=== PATIENT | male | born 1940 | race Caucasian/White ===

== ENCOUNTER 2017-10-01 08:02 | Outpatient (CLI) | payer MEDICARE, OTHER ==
[2017-11-27 08:58] LABS: ADD MAN DIFF? NO
[2017-11-27 09:04] LABS: BASOPHIL # 0.1 10^3/ul (0.0-0.1); BASOPHILS % 0.6 % (0.0-2.0); EOSINOPHILS # 0.2 10^3/ul (0.0-0.5); EOSINOPHILS % 2.7 % (0.0-7.0); HEMATOCRIT 37.7 % (42.0-52.0); HEMOGLOBIN 12.6 g/dl (14.0-18.0); LYMPHOCYTES % 21.7 % (15.0-51.0); MEAN CORPUSCULAR HEMOGLOBIN 30.9 pg (29.0-33.0); MEAN CORPUSCULAR HGB CONC 33.4 g/dl (32.0-37.0); MEAN CORPUSCULAR VOLUME 92.4 fl (82.0-101.0); MEAN PLATELET VOLUME 8.5 fl (7.4-10.4); MONOCYTES % 11.4 % (0.0-11.0); NEUTROPHIL # 5.7 10^3/ul (1.6-7.5); NEUTROPHILS % 63.3 % (39.0-77.0); PLATELET COUNT 304 10^3/UL (140-415); RED BLOOD COUNT 4.08 10^6/ul (4.70-6.10); RED CELL DISTRIBUTION WIDTH 13.3 % (11.5-14.5)
[2017-11-27 09:26] LABS: ALANINE AMINOTRANSFERASE 16 IU/L (13-69); ALBUMIN/GLOBULIN RATIO 1.21; ALKALINE PHOSPHATASE 96 IU/L (42-121); ANION GAP 16 (8-16); ASPARTATE AMINO TRANSFERASE 15 IU/L (15-46); BILIRUBIN,INDIRECT 0.4 mg/dl (0-1.1); BILIRUBIN,TOTAL 0.4 mg/dl (0.2-1.3); BLOOD UREA NITROGEN 14 mg/dl (7-20); CALCIUM 9.4 mg/dl (8.4-10.2); CARBON DIOXIDE 28 mmol/L (21-31); CHLORIDE 97 mmol/L (97-110); CHOL/HDL RATIO 3.1 RATIO; CHOLESTEROL 151 mg/dl (100-200); CREATININE 1.37 mg/dl (0.61-1.24); GLUCOSE 128 mg/dl (70-220); HDL CHOLESTEROL 48 mg/dl (31-75); LDL CHOLESTEROL,CALCULATED 83 mg/dl; POTASSIUM 3.7 mmol/L (3.5-5.1); SODIUM 137 mmol/L (135-144); TOTAL PROTEIN 7.3 g/dl (6.1-8.1); TRIGLYCERIDES 102 mg/dl (0-149)
[2017-11-27 10:09] LABS: DIGOXIN 1.4 ng/ml (1.0-2.0)
[2017-11-28 15:16] LABS: CREATININE, RANDOM URINE 70 mg/dL (20-370); MICROALBUMIN 2.2 mg/dL; MICROALBUMIN/CREATININE RATIO 31 (<30)
== END 2017-11-27 | disposition home or self-care (01) ==
LOC: LAB 08:02
DX: I50.9 Heart failure, unspecified (principal)
CPT/HCPCS: 80053; 80061; 80162; 82043; 85025

== ENCOUNTER → 2018-01-15 | Outpatient (CLI) | payer MEDICARE, OTHER ==
[2018-01-15 08:54] LABS: ADD MAN DIFF? NO
[2018-01-15 08:59] LABS: BASOPHIL # 0.1 10^3/ul (0.0-0.1); BASOPHILS % 0.8 % (0.0-2.0); EOSINOPHILS # 0.3 10^3/ul (0.0-0.5); EOSINOPHILS % 3.3 % (0.0-7.0); HEMATOCRIT 37.6 % (42.0-52.0); HEMOGLOBIN 12.8 g/dl (14.0-18.0); LYMPHOCYTES # 1.9 10^3/ul (0.8-2.9); LYMPHOCYTES % 23.3 % (15.0-51.0); MEAN CORPUSCULAR HEMOGLOBIN 31.8 pg (29.0-33.0); MEAN CORPUSCULAR VOLUME 93.5 fl (82.0-101.0); MEAN PLATELET VOLUME 8.6 fl (7.4-10.4); MONOCYTES % 12.1 % (0.0-11.0); NEUTROPHILS % 60.1 % (39.0-77.0); PLATELET COUNT 273 10^3/UL (140-415); RED BLOOD COUNT 4.02 10^6/ul (4.70-6.10); RED CELL DISTRIBUTION WIDTH 13.7 % (11.5-14.5)
[2018-01-15 08:59] LABS: WHITE BLOOD COUNT 8.3 10^3/ul (4.8-10.8)
[2018-01-15 09:09] LABS: ADD UMIC YES; UR ASCORBIC ACID NEGATIVE (NEGATIVE); UR BACTERIA FEW /HPF (NONE SEEN); UR BILIRUBIN (Dip) NEGATIVE (NEGATIVE); UR BLOOD (Dip) 1+ mg/dL (NEGATIVE); UR CLARITY CLEAR (CLEAR); UR COLOR STRAW (YELLOW); UR GLUCOSE (Dip) NEGATIVE (NEGATIVE); UR KETONES (Dip) NEGATIVE (NEGATIVE); UR LEUKOCYTE ESTERASE (Dip) 3+ Leu/ul (NEGATIVE); UR NITRITE (Dip) NEGATIVE (NEGATIVE); UR RBC 2 /HPF (0-5); UR SPECIFIC GRAVITY (Dip) 1.003 (1.003-1.030); UR TOTAL PROTEIN (Dip) NEGATIVE (NEGATIVE); UR UROBILINOGEN (Dip) NEGATIVE (NEGATIVE); UR WBC 25 /HPF (0-5)
[2018-01-15 09:21] LABS: INR 1.41; PROTIME 17.5 Sec (11.9-14.9); PT RATIO 1.4
[2018-01-15 09:22] LABS: PARTIAL THROMBOPLASTIN TIME 42.7 Sec (25.0-35.0)
[2018-01-15 09:35] LABS: ALANINE AMINOTRANSFERASE 18 IU/L (13-69); ALBUMIN 4.2 g/dl (3.3-4.9); ALBUMIN/GLOBULIN RATIO 1.31; ALKALINE PHOSPHATASE 106 IU/L (42-121); ANION GAP 13 (8-16); ASPARTATE AMINO TRANSFERASE 17 IU/L (15-46); BILIRUBIN,INDIRECT 0.5 mg/dl (0-1.1); BILIRUBIN,TOTAL 0.5 mg/dl (0.2-1.3); BLOOD UREA NITROGEN 15 mg/dl (7-20); CALCIUM 9.5 mg/dl (8.4-10.2); CARBON DIOXIDE 27 mmol/L (21-31); CHLORIDE 99 mmol/L (97-110); CHOL/HDL RATIO 2.3 RATIO; CHOLESTEROL 135 mg/dl (100-200); CREATININE 1.49 mg/dl (0.61-1.24); GLUCOSE 105 mg/dl (70-220); HDL CHOLESTEROL 57 mg/dl (31-75); LDL CHOLESTEROL,CALCULATED 63 mg/dl; POTASSIUM 3.9 mmol/L (3.5-5.1); SODIUM 135 mmol/L (135-144); TOTAL PROTEIN 7.4 g/dl (6.1-8.1); TRIGLYCERIDES 76 mg/dl (0-149)
== END | disposition home or self-care (01) ==
LOC: LAB 08:06
DX: Z01.818 Encounter for other preprocedural examination (principal); I25.10 Atherosclerotic heart disease of native coronary artery without angina pectoris; H26.9 Unspecified cataract; J44.9 Chronic obstructive pulmonary disease, unspecified
CPT/HCPCS: 71046; 80053; 80061; 81001; 85025; 85610; 85730; 93005

== ENCOUNTER 2018-07-03 12:01 | Inpatient (IN) | payer BC, OTHER, MEDICARE ==
[2018-07-03 12:38] LABS: ADD MAN DIFF? NO
[2018-07-03] MEDS: IPRATROPIUM (NEB) 0.5 MG/2.5 ML AMP INH (12:43)
[2018-07-03] MEDS: ALBUTEROL 0.5% (NEB) 2.5 MG/0.5 ML AMP INH (12:43)
[2018-07-03] MEDS: METHYLPREDNISOLONE 125 MG INJ IV ×3 (12:52→21:17)
[2018-07-03] MEDS: MAGNESIUM SULFATE 2 GM/50 ML 50 ML IVPB (12:53)
[2018-07-03 12:56] LABS: AADO2 Arterial 150.4 mmHg (7.0-24.0); Allen Test ACCEPTAB; Arterial Base Excess -3.6 mmol/L (-3.0-3); Arterial Blood Gas Oxygen Sat 97.6 mmHG (95.0-100.0); Arterial COHb 1.2 % (0.0-3.0); Arterial Fraction of Oxyhgb 96.2 % (93.0-99.0); Arterial HCO3 19.8 mmol/L (22.0-26.0); Arterial MetHb 0.2 % (0.0-1.5); Arterial pCO2 31.3 mmhg (35-45); Blood Gas IEPAP 15/5; Blood Gas PS 10; MODE MASK - BIPAP; Site Right Radial
[2018-07-03 12:58] LABS: BASOPHIL # 0.1 10^3/ul (0.0-0.1); BASOPHILS % 0.4 % (0.0-2.0); EOSINOPHILS # 0.1 10^3/ul (0.0-0.5); EOSINOPHILS % 0.4 % (0.0-7.0); HEMATOCRIT 37.8 % (42.0-52.0); HEMOGLOBIN 13.1 g/dl (14.0-18.0); LYMPHOCYTES # 1.1 10^3/ul (0.8-2.9); LYMPHOCYTES % 9.9 % (15.0-51.0); MEAN CORPUSCULAR HGB CONC 34.7 g/dl (32.0-37.0); MEAN CORPUSCULAR VOLUME 92.2 fl (82.0-101.0); MONOCYTES % 8.8 % (0.0-11.0); NEUTROPHIL # 9.3 10^3/ul (1.6-7.5); NEUTROPHILS % 80.2 % (39.0-77.0); PLATELET COUNT 307 10^3/UL (140-415); RED CELL DISTRIBUTION WIDTH 13.3 % (11.5-14.5)
[2018-07-03 12:58] LABS: WHITE BLOOD COUNT 11.5 10^3/ul (4.8-10.8)
[2018-07-03 13:00] LABS: ALBUMIN 4.9 g/dl (3.3-4.9); ALBUMIN/GLOBULIN RATIO 1.63; ALKALINE PHOSPHATASE 139 IU/L (42-121); ANION GAP 16 (5-13); ASPARTATE AMINO TRANSFERASE 27 IU/L (15-46); BILIRUBIN,INDIRECT 0.8 mg/dl (0-1.1); BILIRUBIN,TOTAL 0.8 mg/dl (0.2-1.3); BLOOD UREA NITROGEN 15 mg/dl (7-20); CALCIUM 9.8 mg/dl (8.4-10.2); CARBON DIOXIDE 21 mmol/L (21-31); CHLORIDE 95 mmol/L (97-110); GLUCOSE 113 mg/dl (70-220); LIPASE 24 U/L (23-300); POTASSIUM 4.8 mmol/L (3.5-5.1); SODIUM 132 mmol/L (135-144); TOTAL PROTEIN 7.9 g/dl (6.1-8.1)
[2018-07-03] MEDS ORDERED: ASPIRIN 81 MG TAB PO (13:00)
[2018-07-03 13:02] LABS: ALANINE AMINOTRANSFERASE < 6 IU/L (13-69)
[2018-07-03 13:09] LABS: B-TYPE NATRIURETIC PEPTIDE 9320 PG/ML (0-450)
[2018-07-03] MEDS: ENALAPRILAT 1.25 MG INJ IV ×2 (13:09→13:57)
[2018-07-03] MEDS: NITROGLYCERIN (SL) 0.4 MG TAB SL (13:10)
[2018-07-03 13:11] LABS: TROPONIN-I < 0.012 ng/ml (0.000-0.120)
[2018-07-03 13:16] LABS: PARTIAL THROMBOPLASTIN TIME 37.9 Sec (23.0-35.0)
[2018-07-03 13:36] LABS: INR 1.25; PROTIME 15.9 Sec (11.9-14.9); PT RATIO 1.2
[2018-07-03] MEDS: ASPIRIN 81 MG TAB PO (14:00)
[2018-07-03] MEDS: FUROSEMIDE 40 MG INJ IV ×2 (14:01→18:50)
[2018-07-03] MEDS ORDERED: ALBUTEROL/IPRATROPIUM (NEB) 3 ML AMP HHN (16:30)
[2018-07-03] MEDS ORDERED: NACL 0.9% 3 ML SYG IV (16:30)
[2018-07-03] MEDS ORDERED: ACETAMINOPHEN 325 MG TAB PO (16:30)
[2018-07-03] MEDS ORDERED: ONDANSETRON 4 MG INJ IV (16:30)
[2018-07-03] MEDS: LEVALBUTEROL (NEB) 1.25 MG/0.5 ML AMP HHN ×3 (16:49→19:55)
[2018-07-03 17:32] LABS: CREATINE KINASE 37 IU/L (23-200)
[2018-07-03 17:46] LABS: CK INDEX 5.9; CK-MB 2.19 ng/ml (0.0-2.4); TROPONIN-I < 0.012 ng/ml (0.000-0.120)
[2018-07-03] MEDS: DILTIAZEM 60 MG TAB PO (18:53)
[2018-07-03] MEDS: CEFEPIME 1GM/50 ML (PMX) 50 ML IVPB (21:17)
[2018-07-03 22:38] LABS: CREATINE KINASE 30 IU/L (23-200)
[2018-07-03 22:51] LABS: CK INDEX 6.2; CK-MB 1.86 ng/ml (0.0-2.4); TROPONIN-I < 0.012 ng/ml (0.000-0.120)
[2018-07-04] MEDS: DILTIAZEM 60 MG TAB PO ×4 (00:25→21:44)
[2018-07-04] MEDS: LEVALBUTEROL (NEB) 1.25 MG/0.5 ML AMP HHN ×6 (00:45→20:02)
[2018-07-04] MEDS: PANTOPRAZOLE 40 MG INJ IV (05:09)
[2018-07-04] MEDS: FUROSEMIDE 40 MG INJ IV ×2 (05:10→17:22)
[2018-07-04] MEDS: METHYLPREDNISOLONE 125 MG INJ IV ×3 (05:16→21:41)
[2018-07-04] MEDS: CEFEPIME 1GM/50 ML (PMX) 50 ML IVPB ×2 (08:04→21:41)
[2018-07-04 08:42] LABS: ADD MAN DIFF? NO
[2018-07-04 08:48] LABS: WHITE BLOOD COUNT 10.3 10^3/ul (4.8-10.8)
[2018-07-04 08:48] LABS: BASOPHILS % 0.1 % (0.0-2.0); HEMATOCRIT 34.6 % (42.0-52.0); HEMOGLOBIN 11.8 g/dl (14.0-18.0); LYMPHOCYTES # 0.7 10^3/ul (0.8-2.9); LYMPHOCYTES % 6.3 % (15.0-51.0); MEAN CORPUSCULAR HGB CONC 34.1 g/dl (32.0-37.0); MEAN CORPUSCULAR VOLUME 90.8 fl (82.0-101.0); MEAN PLATELET VOLUME 9.1 fl (7.4-10.4); MONOCYTE # 0.3 10^3/ul (0.3-0.9); NEUTROPHIL # 9.3 10^3/ul (1.6-7.5); NEUTROPHILS % 90.2 % (39.0-77.0); PLATELET COUNT 295 10^3/UL (140-415); RED BLOOD COUNT 3.81 10^6/ul (4.70-6.10); RED CELL DISTRIBUTION WIDTH 13.3 % (11.5-14.5)
[2018-07-04 09:14] LABS: ANION GAP 13 (5-13); BLOOD UREA NITROGEN 27 mg/dl (7-20); CALCIUM 9.2 mg/dl (8.4-10.2); CARBON DIOXIDE 23 mmol/L (21-31); CHLORIDE 99 mmol/L (97-110); CREATININE 1.39 mg/dl (0.61-1.24); GLUCOSE 187 mg/dl (70-220); POTASSIUM 3.4 mmol/L (3.5-5.1); SODIUM 135 mmol/L (135-144)
[2018-07-04 09:20] LABS: PHOSPHORUS 3.3 mg/dl (2.5-4.9)
[2018-07-04 09:22] LABS: FREE THYROXINE INDEX (Calc) 3.15 ug/ml (0.65-3.89); T4 (THYROXINE) 7.5 ug/dl (5.5-11.0)
[2018-07-04 10:32] LABS: ADD UMIC YES; UR ASCORBIC ACID NEGATIVE (NEGATIVE); UR BACTERIA FEW /HPF (NONE SEEN); UR BILIRUBIN (Dip) NEGATIVE (NEGATIVE); UR BLOOD (Dip) 2+ mg/dL (NEGATIVE); UR CLARITY SLIGHTLY CLOUDY (CLEAR); UR COLOR YELLOW (YELLOW); UR GLUCOSE (Dip) NEGATIVE (NEGATIVE); UR KETONES (Dip) NEGATIVE (NEGATIVE); UR LEUKOCYTE ESTERASE (Dip) 2+ Leu/ul (NEGATIVE); UR NITRITE (Dip) NEGATIVE (NEGATIVE); UR RBC 2 /HPF (0-5); UR SPECIFIC GRAVITY (Dip) 1.005 (1.003-1.030); UR TOTAL PROTEIN (Dip) NEGATIVE (NEGATIVE); UR UROBILINOGEN (Dip) NEGATIVE (NEGATIVE); UR WBC 12 /HPF (0-5)
[2018-07-04] MEDS: ATENOLOL 25 MG TAB PO ×2 (12:30→20:51)
[2018-07-04 13:23] LABS: FLD RBC 5000 /uL; FLD WBC 376 /cmm
[2018-07-04 13:36] LABS: FLD TYPE PLEURAL
[2018-07-04 13:36] LABS: FLD CLARITY SLIGHTLY CLOUDY; FLD COLOR YELLOW
[2018-07-04 13:59] LABS: FLD MN% 79.8 %; FLD PMN% 20.2 %
[2018-07-04 14:40] LABS: FLUID LD 278 U/L
[2018-07-04 14:41] LABS: FLUID TOTAL PROTEIN 2.4 g/dl; FLUID TYPE PLEURAL FLUID
[2018-07-04] MEDS: POTASSIUM CHLORIDE 100 ML IVPB ×2 (20:50→21:41)
[2018-07-05] MEDS: LEVALBUTEROL (NEB) 1.25 MG/0.5 ML AMP HHN ×6 (01:37→20:27)
[2018-07-05] MEDS: PANTOPRAZOLE 40 MG INJ IV (06:01)
[2018-07-05] MEDS: METHYLPREDNISOLONE 125 MG INJ IV ×3 (06:02→21:09)
[2018-07-05] MEDS: DILTIAZEM 60 MG TAB PO ×3 (06:02→21:09)
[2018-07-05 06:48] LABS: ADD MAN DIFF? NO
[2018-07-05 06:53] LABS: WHITE BLOOD COUNT 20.1 10^3/ul (4.8-10.8)
[2018-07-05 06:53] LABS: HEMATOCRIT 34.2 % (42.0-52.0); HEMOGLOBIN 11.6 g/dl (14.0-18.0); LYMPHOCYTES # 0.8 10^3/ul (0.8-2.9); LYMPHOCYTES % 4.1 % (15.0-51.0); MEAN CORPUSCULAR HEMOGLOBIN 31.8 pg (29.0-33.0); MEAN CORPUSCULAR HGB CONC 33.9 g/dl (32.0-37.0); MEAN CORPUSCULAR VOLUME 93.7 fl (82.0-101.0); MEAN PLATELET VOLUME 9.1 fl (7.4-10.4); MONOCYTE # 0.7 10^3/ul (0.3-0.9); MONOCYTES % 3.6 % (0.0-11.0); NEUTROPHIL # 18.4 10^3/ul (1.6-7.5); NEUTROPHILS % 91.6 % (39.0-77.0); PLATELET COUNT 290 10^3/UL (140-415); RED BLOOD COUNT 3.65 10^6/ul (4.70-6.10); RED CELL DISTRIBUTION WIDTH 13.9 % (11.5-14.5)
[2018-07-05 07:46] LABS: ANION GAP 13 (5-13); BLOOD UREA NITROGEN 33 mg/dl (7-20); CALCIUM 8.9 mg/dl (8.4-10.2); CARBON DIOXIDE 24 mmol/L (21-31); CHLORIDE 100 mmol/L (97-110); CREATININE 1.61 mg/dl (0.61-1.24); GLUCOSE 161 mg/dl (70-220); PHOSPHORUS 3.9 mg/dl (2.5-4.9); POTASSIUM 3.7 mmol/L (3.5-5.1); SODIUM 137 mmol/L (135-144)
[2018-07-05] MEDS: FUROSEMIDE 40 MG INJ IV (08:22)
[2018-07-05] MEDS: CEFEPIME 1GM/50 ML (PMX) 50 ML IVPB ×2 (08:22→21:09)
[2018-07-05] MEDS: ATENOLOL 25 MG TAB PO ×2 (08:25→21:08)
[2018-07-05] MEDS: INFLUENZA VIRUS VACCINE 0.5 ML (DISPENSING) IM* (08:26)
[2018-07-05 10:07] LABS: AADO2 Arterial 99.3 mmHg (7.0-24.0); Allen Test ACCEPTAB; Arterial Base Excess -1.9 mmol/L (-3.0-3); Arterial Blood Gas Oxygen Sat 95.4 mmHG (95.0-100.0); Arterial COHb 0.7 % (0.0-3.0); Arterial Fraction of Oxyhgb 94.4 % (93.0-99.0); Arterial HCO3 21.4 mmol/L (22.0-26.0); Arterial MetHb 0.3 % (0.0-1.5); Arterial pCO2 31.9 mmhg (35-45); MODE NASAL CANNULA; Site Right Radial
[2018-07-05] MEDS: GUAIFENESIN/DM 5ML CUP PO (13:16)
[2018-07-05] MEDS: DOCUSATE SODIUM 100 MG CAP PO (21:25)
[2018-07-06] MEDS: LEVALBUTEROL (NEB) 1.25 MG/0.5 ML AMP HHN ×6 (02:40→20:22)
[2018-07-06] MEDS: GUAIFENESIN/DM 5ML CUP PO ×2 (02:48→18:11)
[2018-07-06] MEDS: DILTIAZEM 60 MG TAB PO ×3 (06:00→22:11)
[2018-07-06] MEDS: METHYLPREDNISOLONE 125 MG INJ IV ×4 (06:15→20:06)
[2018-07-06] MEDS: PANTOPRAZOLE 40 MG INJ IV (06:15)
[2018-07-06 07:11] LABS: ADD MAN DIFF? NO; BASOPHILS % 0.1 % (0.0-2.0); HEMATOCRIT 35.7 % (42.0-52.0); HEMOGLOBIN 11.8 g/dl (14.0-18.0); LYMPHOCYTES # 0.7 10^3/ul (0.8-2.9); LYMPHOCYTES % 3.6 % (15.0-51.0); MEAN CORPUSCULAR HEMOGLOBIN 31.5 pg (29.0-33.0); MEAN CORPUSCULAR HGB CONC 33.1 g/dl (32.0-37.0); MEAN CORPUSCULAR VOLUME 95.2 fl (82.0-101.0); MEAN PLATELET VOLUME 9.1 fl (7.4-10.4); MONOCYTE # 0.9 10^3/ul (0.3-0.9); MONOCYTES % 4.8 % (0.0-11.0); NEUTROPHIL # 17.1 10^3/ul (1.6-7.5); NEUTROPHILS % 90.7 % (39.0-77.0); PLATELET COUNT 286 10^3/UL (140-415); RED BLOOD COUNT 3.75 10^6/ul (4.70-6.10); RED CELL DISTRIBUTION WIDTH 14.2 % (11.5-14.5)
[2018-07-06 07:11] LABS: WHITE BLOOD COUNT 18.9 10^3/ul (4.8-10.8)
[2018-07-06 07:46] LABS: PHOSPHORUS 4.5 mg/dl (2.5-4.9)
[2018-07-06 07:46] LABS: MAGNESIUM 2.2 mg/dl (1.7-2.5)
[2018-07-06 07:52] LABS: ANION GAP 13 (5-13); BLOOD UREA NITROGEN 45 mg/dl (7-20); CALCIUM 9.1 mg/dl (8.4-10.2); CARBON DIOXIDE 24 mmol/L (21-31); CHLORIDE 102 mmol/L (97-110); CREATININE 1.75 mg/dl (0.61-1.24); GLUCOSE 146 mg/dl (70-220); POTASSIUM 4.4 mmol/L (3.5-5.1); SODIUM 139 mmol/L (135-144)
[2018-07-06] MEDS: ATENOLOL 25 MG TAB PO ×2 (08:49→20:07)
[2018-07-06] MEDS: CEFEPIME 1GM/50 ML (PMX) 50 ML IVPB ×2 (08:50→20:06)
[2018-07-06] MEDS: DOCUSATE SODIUM 100 MG CAP PO ×2 (18:03→20:07)
[2018-07-06] MEDS: NIFEdipine (XL) 30 MG TAB PO (20:07)
[2018-07-06] MEDS: FUROSEMIDE 40 MG INJ IV (22:32)
[2018-07-06 23:49] LABS: AADO2 Arterial 533.5 mmHg (7.0-24.0); Allen Test ACCEPTAB; Arterial Base Excess -5.4 mmol/L (-3.0-3); Arterial Blood Gas Oxygen Sat 98.2 mmHG (95.0-100.0); Arterial COHb 0.3 % (0.0-3.0); Arterial Fraction of Oxyhgb 97.6 % (93.0-99.0); Arterial HCO3 21.1 mmol/L (22.0-26.0); Arterial MetHb 0.3 % (0.0-1.5); MODE MASK - NRB; Site Right Radial
[2018-07-06] MEDS ORDERED: LORAZEPAM 2 MG INJ (23:59)
[2018-07-07] MEDS: LORAZEPAM 2 MG INJ IV (00:13)
[2018-07-07] MEDS ORDERED: PROPOFOL 100 ML (00:23)
[2018-07-07] MEDS: PROPOFOL 100 ML IV ×4 (00:46→18:13)
[2018-07-07] MEDS: LEVALBUTEROL (NEB) 1.25 MG/0.5 ML AMP HHN ×3 (01:07→09:00)
[2018-07-07 01:58] LABS: AADO2 Arterial 247.7 mmHg (7.0-24.0); Arterial Base Excess -3.7 mmol/L (-3.0-3); Arterial Blood Gas Oxygen Sat 99.7 mmHG (95.0-100.0); Arterial COHb 0.3 % (0.0-3.0); Arterial Fraction of Oxyhgb 99.1 % (93.0-99.0); Arterial HCO3 21.1 mmol/L (22.0-26.0); Arterial MetHb 0.3 % (0.0-1.5); Arterial pCO2 37.3 mmhg (35-45); MODE VENT - AC; Site Right Radial
[2018-07-07 05:36] LABS: ANION GAP 9 (5-13); BLOOD UREA NITROGEN 53 mg/dl (7-20); CALCIUM 8.9 mg/dl (8.4-10.2); CARBON DIOXIDE 25 mmol/L (21-31); CHLORIDE 104 mmol/L (97-110); CREATININE 1.83 mg/dl (0.61-1.24); GLUCOSE 205 mg/dl (70-220); POTASSIUM 4.4 mmol/L (3.5-5.1); SODIUM 138 mmol/L (135-144)
[2018-07-07] MEDS: PANTOPRAZOLE 40 MG INJ IV (05:45)
[2018-07-07] MEDS: DILTIAZEM 60 MG TAB PO ×3 (06:00→22:01)
[2018-07-07] MEDS ORDERED: SUCCINYLCHOLINE CHLORIDE 100 MG/5 ML SYG IV (07:00)
[2018-07-07] MEDS ORDERED: ETOMIDATE 20 MG INJ (07:00)
[2018-07-07 08:52] LABS: AADO2 Arterial 102.6 mmHg (7.0-24.0); Allen Test ACCEPTAB; Arterial Base Excess 0.5 mmol/L (-3.0-3); Arterial Blood Gas Oxygen Sat 98.6 mmHG (95.0-100.0); Arterial COHb 0.3 % (0.0-3.0); Arterial Fraction of Oxyhgb 98.1 % (93.0-99.0); Arterial HCO3 24.7 mmol/L (22.0-26.0); Arterial MetHb 0.2 % (0.0-1.5); Arterial pCO2 38.2 mmhg (35-45); MODE VENT - AC; Site Right Radial
[2018-07-07] MEDS: METHYLPREDNISOLONE 125 MG INJ IV ×2 (08:57→20:49)
[2018-07-07] MEDS: CEFEPIME 1GM/50 ML (PMX) 50 ML IVPB ×2 (08:57→20:18)
[2018-07-07] MEDS: NIFEdipine (XL) 30 MG TAB PO (08:58)
[2018-07-07] MEDS: ATENOLOL 25 MG TAB PO ×2 (08:59→20:18)
[2018-07-07] MEDS ORDERED: DEXTROSE 50% 50 ML SYRINGE IV ×2 (11:00)
[2018-07-07] MEDS ORDERED: GLUCOSE GEL 15 GRAM TUBE PO ×2 (11:00)
[2018-07-07] MEDS ORDERED: GLUCAGON 1 MG INJ IM (11:00)
[2018-07-07] MEDS ORDERED: GLUCOSE GEL 15 GRAM TUBE BUCCAL (11:00)
[2018-07-07] MEDS ORDERED: INSULIN ASPART [NOVOLOG] 3 ML PEN SC (11:30)
[2018-07-07] MEDS: INSULIN ASPART [NOVOLOG] 3 ML PEN SC ×3 (12:48→20:51)
[2018-07-07] MEDS: LEVALBUTEROL (HFA) 15 GM INHALER INH ×2 (13:33→20:25)
[2018-07-08] MEDS: PROPOFOL 100 ML IV ×2 (00:35→06:01)
[2018-07-08] MEDS: INSULIN ASPART [NOVOLOG] 3 ML PEN SC ×6 (01:28→21:05)
[2018-07-08] MEDS ORDERED: ACCU-CHEK XX ×2 (02:00)
[2018-07-08] MEDS: LEVALBUTEROL (HFA) 15 GM INHALER INH ×2 (02:14→09:22)
[2018-07-08 05:54] LABS: ABNORMAL IP MESSAGE 1; ADD MAN DIFF? NO; HEMATOCRIT 33.8 % (42.0-52.0); HEMOGLOBIN 11.5 g/dl (14.0-18.0); LYMPHOCYTES # 0.5 10^3/ul (0.8-2.9); LYMPHOCYTES % 4.4 % (15.0-51.0); MEAN CORPUSCULAR VOLUME 94.2 fl (82.0-101.0); MEAN PLATELET VOLUME 9.2 fl (7.4-10.4); MONOCYTE # 0.9 10^3/ul (0.3-0.9); MONOCYTES % 8.2 % (0.0-11.0); NEUTROPHIL # 9.2 10^3/ul (1.6-7.5); NEUTROPHILS % 86.5 % (39.0-77.0); PLATELET COUNT 253 10^3/UL (140-415); POSITIVE DIFF @See below; RED BLOOD COUNT 3.59 10^6/ul (4.70-6.10); RED CELL DISTRIBUTION WIDTH 14.2 % (11.5-14.5)
[2018-07-08 05:54] LABS: WHITE BLOOD COUNT 10.7 10^3/ul (4.8-10.8)
[2018-07-08] MEDS: PANTOPRAZOLE 40 MG INJ IV (05:57)
[2018-07-08] MEDS: DILTIAZEM 60 MG TAB PO ×3 (05:58→21:03)
[2018-07-08 06:42] LABS: ANION GAP 10 (5-13); BLOOD UREA NITROGEN 63 mg/dl (7-20); CALCIUM 8.7 mg/dl (8.4-10.2); CARBON DIOXIDE 24 mmol/L (21-31); CHLORIDE 107 mmol/L (97-110); GLUCOSE 171 mg/dl (70-220); MAGNESIUM 2.6 mg/dl (1.7-2.5); PHOSPHORUS 4.1 mg/dl (2.5-4.9); POTASSIUM 4.2 mmol/L (3.5-5.1); SODIUM 141 mmol/L (135-144)
[2018-07-08 07:31] LABS: AADO2 Arterial 58.1 mmHg (7.0-24.0); Allen Test ACCEPTAB; Arterial Base Excess 0 mmol/L (-3.0-3); Arterial Blood Gas Oxygen Sat 98.1 mmHG (95.0-100.0); Arterial COHb 0.3 % (0.0-3.0); Arterial Fraction of Oxyhgb 97.6 % (93.0-99.0); Arterial HCO3 23.3 mmol/L (22.0-26.0); Arterial MetHb 0.2 % (0.0-1.5); Arterial pCO2 33.6 mmhg (35-45); MODE VENT - AC; Site Right Radial
[2018-07-08] MEDS: APIXABAN 5 MG TABLET PO ×2 (09:26→21:04)
[2018-07-08] MEDS: ATENOLOL 25 MG TAB PO ×2 (09:27→21:03)
[2018-07-08] MEDS: METHYLPREDNISOLONE 125 MG INJ IV ×2 (09:27→21:04)
[2018-07-08] MEDS: CEFEPIME 1GM/50 ML (PMX) 50 ML IVPB (09:28)
[2018-07-08 11:18] LABS: AADO2 Arterial 63.4 mmHg (7.0-24.0); Allen Test ACCEPTAB; Arterial Base Excess -0.4 mmol/L (-3.0-3); Arterial COHb 0.3 % (0.0-3.0); Arterial Fraction of Oxyhgb 97.6 % (93.0-99.0); Arterial HCO3 22.8 mmol/L (22.0-26.0); Arterial MetHb 0.1 % (0.0-1.5); Arterial pCO2 32.8 mmhg (35-45); Blood Gas PS 10; MODE VENT - CPAP; Site Right Radial
[2018-07-08] MEDS: SOD CHLORIDE 0.45% 1,000 ML IV (12:24)
[2018-07-09] MEDS ORDERED: LORAZEPAM 2 MG INJ IV (01:00)
[2018-07-09] MEDS: OXYCODONE/ACETAMINOPHEN (5/325) TAB PO ×2 (01:31→09:09)
[2018-07-09] MEDS: INSULIN ASPART [NOVOLOG] 3 ML PEN SC ×6 (01:38→21:14)
[2018-07-09 03:39] LABS: ADD UMIC YES; UR ASCORBIC ACID 20 mg/dL (NEGATIVE); UR BACTERIA FEW /HPF (NONE SEEN); UR BILIRUBIN (Dip) NEGATIVE (NEGATIVE); UR BLOOD (Dip) 2+ mg/dL (NEGATIVE); UR CLARITY CLEAR (CLEAR); UR COLOR YELLOW (YELLOW); UR GLUCOSE (Dip) NEGATIVE (NEGATIVE); UR KETONES (Dip) NEGATIVE (NEGATIVE); UR LEUKOCYTE ESTERASE (Dip) TRACE Leu/ul (NEGATIVE); UR NITRITE (Dip) NEGATIVE (NEGATIVE); UR RBC 44 /HPF (0-5); UR SPECIFIC GRAVITY (Dip) 1.017 (1.003-1.030); UR TOTAL PROTEIN (Dip) 1+ mg/dl (NEGATIVE); UR UROBILINOGEN (Dip) NEGATIVE (NEGATIVE); UR WBC 7 /HPF (0-5)
[2018-07-09 03:40] LABS: SODIUM,URINE RANDOM 14 mmol/L (30-90)
[2018-07-09 05:02] LABS: ADD MAN DIFF? NO
[2018-07-09 05:03] LABS: WHITE BLOOD COUNT 11.8 10^3/ul (4.8-10.8)
[2018-07-09 05:03] LABS: ABNORMAL IP MESSAGE 1; HEMOGLOBIN 11.6 g/dl (14.0-18.0); LYMPHOCYTES # 0.5 10^3/ul (0.8-2.9); MEAN CORPUSCULAR HEMOGLOBIN 31.4 pg (29.0-33.0); MEAN CORPUSCULAR HGB CONC 33.1 g/dl (32.0-37.0); MEAN CORPUSCULAR VOLUME 94.9 fl (82.0-101.0); MEAN PLATELET VOLUME 9.3 fl (7.4-10.4); MONOCYTE # 0.8 10^3/ul (0.3-0.9); MONOCYTES % 6.4 % (0.0-11.0); NEUTROPHIL # 10.5 10^3/ul (1.6-7.5); NEUTROPHILS % 88.8 % (39.0-77.0); PLATELET COUNT 240 10^3/UL (140-415); POSITIVE DIFF @See below; RED BLOOD COUNT 3.69 10^6/ul (4.70-6.10)
[2018-07-09 05:29] LABS: ANION GAP 8 (5-13); BLOOD UREA NITROGEN 66 mg/dl (7-20); CALCIUM 8.6 mg/dl (8.4-10.2); CARBON DIOXIDE 24 mmol/L (21-31); CHLORIDE 109 mmol/L (97-110); CREATININE 1.51 mg/dl (0.61-1.24); GLUCOSE 173 mg/dl (70-220); MAGNESIUM 2.6 mg/dl (1.7-2.5); PHOSPHORUS 3.4 mg/dl (2.5-4.9); POTASSIUM 4.3 mmol/L (3.5-5.1); SODIUM 141 mmol/L (135-144)
[2018-07-09] MEDS: LANSOPRAZOLE 30 MG CAP GTB (05:31)
[2018-07-09] MEDS: DILTIAZEM 60 MG TAB PO ×3 (05:31→21:17)
[2018-07-09] MEDS: SOD CHLORIDE 0.45% 1,000 ML IV (07:05)
[2018-07-09 08:25] LABS: Allen Test ACCEPTAB; Arterial Base Excess -0.7 mmol/L (-3.0-3); Arterial Blood Gas Oxygen Sat 98.3 mmHG (95.0-100.0); Arterial COHb 0.5 % (0.0-3.0); Arterial Fraction of Oxyhgb 97.7 % (93.0-99.0); Arterial HCO3 22.5 mmol/L (22.0-26.0); Arterial MetHb 0.1 % (0.0-1.5); Arterial pCO2 32.6 mmhg (35-45); MODE NASAL CANNULA; Site Right Radial
[2018-07-09] MEDS ORDERED: E IVPB (09:00)
[2018-07-09] MEDS: METHYLPREDNISOLONE 125 MG INJ IV (09:07)
[2018-07-09] MEDS: ATENOLOL 25 MG TAB PO ×2 (09:08→21:16)
[2018-07-09] MEDS: APIXABAN 5 MG TABLET PO ×2 (09:08→21:16)
[2018-07-09] MEDS: CEFEPIME 1GM/50 ML (PMX) 50 ML IVPB (09:09)
[2018-07-09] MEDS ORDERED: LORAZEPAM 0.5 MG TAB GTB (11:00)
[2018-07-10] MEDS: INSULIN ASPART [NOVOLOG] 3 ML PEN SC ×6 (01:00→20:47)
[2018-07-10 05:30] LABS: ADD MAN DIFF? NO
[2018-07-10 05:47] LABS: BASOPHILS % 0.1 % (0.0-2.0); EOSINOPHILS % 0.1 % (0.0-7.0); HEMATOCRIT 37.7 % (42.0-52.0); HEMOGLOBIN 12.5 g/dl (14.0-18.0); LYMPHOCYTES # 0.9 10^3/ul (0.8-2.9); LYMPHOCYTES % 5.4 % (15.0-51.0); MEAN CORPUSCULAR HEMOGLOBIN 31.5 pg (29.0-33.0); MEAN CORPUSCULAR HGB CONC 33.2 g/dl (32.0-37.0); MEAN PLATELET VOLUME 9.6 fl (7.4-10.4); MONOCYTE # 1.5 10^3/ul (0.3-0.9); MONOCYTES % 9.2 % (0.0-11.0); NEUTROPHIL # 13.5 10^3/ul (1.6-7.5); NEUTROPHILS % 84.3 % (39.0-77.0); PLATELET COUNT 240 10^3/UL (140-415); RED BLOOD COUNT 3.97 10^6/ul (4.70-6.10); RED CELL DISTRIBUTION WIDTH 13.4 % (11.5-14.5)
[2018-07-10] MEDS: LANSOPRAZOLE 30 MG CAP GTB (06:15)
[2018-07-10] MEDS: OXYCODONE/ACETAMINOPHEN (5/325) TAB PO (06:15)
[2018-07-10] MEDS: DILTIAZEM 60 MG TAB PO ×3 (06:16→20:48)
[2018-07-10 06:22] LABS: ANION GAP 8 (5-13); BLOOD UREA NITROGEN 65 mg/dl (7-20); CALCIUM 8.7 mg/dl (8.4-10.2); CARBON DIOXIDE 24 mmol/L (21-31); CHLORIDE 106 mmol/L (97-110); GLUCOSE 143 mg/dl (70-220); MAGNESIUM 2.5 mg/dl (1.7-2.5); PHOSPHORUS 3.2 mg/dl (2.5-4.9); POTASSIUM 4.5 mmol/L (3.5-5.1); SODIUM 138 mmol/L (135-144)
[2018-07-10] MEDS ORDERED: VANCOMYCIN IV PER PHARMACY XX (08:00)
[2018-07-10] MEDS: CEFEPIME 1GM/50 ML (PMX) 50 ML IVPB (08:10)
[2018-07-10] MEDS: METHYLPREDNISOLONE 125 MG INJ IV (08:10)
[2018-07-10] MEDS: APIXABAN 5 MG TABLET PO ×2 (08:10→20:49)
[2018-07-10] MEDS: ATENOLOL 25 MG TAB PO ×2 (08:10→20:48)
[2018-07-10] MEDS ORDERED: VANCOMYCIN 1.75 GM in SOD CHLORIDE 0.9% 500 ML IVPB (10:00)
[2018-07-10] MEDS: hydrALAzine 20 MG INJ IV (10:43)
[2018-07-10] MEDS: VANCOMYCIN 1.5 GM in SOD CHLORIDE 0.9% 250 ML IVPB (12:33)
[2018-07-10] MEDS: LEVALBUTEROL (NEB) 1.25 MG/0.5 ML AMP HHN (14:17)
[2018-07-10] MEDS: LACTULOSE 30ML CUP PO (14:33)
[2018-07-11] MEDS: INSULIN ASPART [NOVOLOG] 3 ML PEN SC ×5 (01:00→20:12)
[2018-07-11] MEDS: DILTIAZEM 60 MG TAB PO ×3 (05:34→22:23)
[2018-07-11] MEDS: LANSOPRAZOLE 30 MG CAP GTB (05:34)
[2018-07-11 08:10] LABS: ADD MAN DIFF? NO
[2018-07-11 08:13] LABS: WHITE BLOOD COUNT 21.3 10^3/ul (4.8-10.8)
[2018-07-11 08:13] LABS: ABNORMAL IP MESSAGE 1; BASOPHILS % 0.1 % (0.0-2.0); EOSINOPHILS # 0.1 10^3/ul (0.0-0.5); EOSINOPHILS % 0.5 % (0.0-7.0); HEMATOCRIT 40.4 % (42.0-52.0); HEMOGLOBIN 13.2 g/dl (14.0-18.0); LYMPHOCYTES # 1.6 10^3/ul (0.8-2.9); LYMPHOCYTES % 7.4 % (15.0-51.0); MEAN CORPUSCULAR HEMOGLOBIN 31.5 pg (29.0-33.0); MEAN CORPUSCULAR HGB CONC 32.7 g/dl (32.0-37.0); MEAN CORPUSCULAR VOLUME 96.4 fl (82.0-101.0); MONOCYTE # 2.5 10^3/ul (0.3-0.9); MONOCYTES % 11.9 % (0.0-11.0); NEUTROPHIL # 16.9 10^3/ul (1.6-7.5); NEUTROPHILS % 79.1 % (39.0-77.0); PLATELET COUNT 237 10^3/UL (140-415); POSITIVE DIFF @See below; RED BLOOD COUNT 4.19 10^6/ul (4.70-6.10); RED CELL DISTRIBUTION WIDTH 13.9 % (11.5-14.5)
[2018-07-11] MEDS: APIXABAN 5 MG TABLET PO ×2 (08:35→20:12)
[2018-07-11] MEDS: ATENOLOL 25 MG TAB PO ×2 (08:35→20:04)
[2018-07-11] MEDS: METHYLPREDNISOLONE 125 MG INJ IV (08:35)
[2018-07-11] MEDS: CEFEPIME 1GM/50 ML (PMX) 50 ML IVPB (08:36)
[2018-07-11 08:43] LABS: MAGNESIUM 2.5 mg/dl (1.7-2.5)
[2018-07-11 08:43] LABS: PHOSPHORUS 3.7 mg/dl (2.5-4.9)
[2018-07-11 09:19] LABS: ANION GAP 12 (5-13); BLOOD UREA NITROGEN 58 mg/dl (7-20); CALCIUM 9.2 mg/dl (8.4-10.2); CARBON DIOXIDE 22 mmol/L (21-31); CHLORIDE 105 mmol/L (97-110); CREATININE 1.22 mg/dl (0.61-1.24); GLUCOSE 128 mg/dl (70-220); POTASSIUM 5.4 mmol/L (3.5-5.1); SODIUM 139 mmol/L (135-144)
[2018-07-11] MEDS: VANCOMYCIN 1.25 GM in SOD CHLORIDE 0.9% 250 ML IVPB (12:32)
[2018-07-11] MEDS: NA POLYST SULFON 15 GM/60 ML BTL PO (13:34)
[2018-07-11] MEDS: GUAIFENESIN/DM 5ML CUP PO (22:23)
[2018-07-12] MEDS: hydrALAzine 20 MG INJ IV (00:07)
[2018-07-12] MEDS: OXYCODONE/ACETAMINOPHEN (5/325) TAB PO (00:30)
[2018-07-12 04:57] LABS: ADD MAN DIFF? NO
[2018-07-12 05:01] LABS: ABNORMAL IP MESSAGE 1; BASOPHILS % 0.1 % (0.0-2.0); EOSINOPHILS % 0.1 % (0.0-7.0); HEMOGLOBIN 11.9 g/dl (14.0-18.0); LYMPHOCYTES # 0.8 10^3/ul (0.8-2.9); MEAN CORPUSCULAR HEMOGLOBIN 30.9 pg (29.0-33.0); MEAN CORPUSCULAR HGB CONC 32.2 g/dl (32.0-37.0); MEAN CORPUSCULAR VOLUME 96.1 fl (82.0-101.0); MEAN PLATELET VOLUME 9.7 fl (7.4-10.4); MONOCYTE # 1.7 10^3/ul (0.3-0.9); MONOCYTES % 10.5 % (0.0-11.0); NEUTROPHIL # 13.7 10^3/ul (1.6-7.5); NEUTROPHILS % 83.3 % (39.0-77.0); PLATELET COUNT 244 10^3/UL (140-415); POSITIVE DIFF @See below; RED BLOOD COUNT 3.85 10^6/ul (4.70-6.10); RED CELL DISTRIBUTION WIDTH 13.6 % (11.5-14.5)
[2018-07-12 05:01] LABS: WHITE BLOOD COUNT 16.5 10^3/ul (4.8-10.8)
[2018-07-12 05:18] LABS: INR 1.32; PROTIME 16.6 Sec (11.9-14.9); PT RATIO 1.3
[2018-07-12 05:19] LABS: PARTIAL THROMBOPLASTIN TIME 28.2 Sec (23.0-35.0)
[2018-07-12 05:28] LABS: ANION GAP 8 (5-13); BLOOD UREA NITROGEN 50 mg/dl (7-20); CALCIUM 8.9 mg/dl (8.4-10.2); CARBON DIOXIDE 27 mmol/L (21-31); CHLORIDE 105 mmol/L (97-110); CREATININE 1.14 mg/dl (0.61-1.24); GLUCOSE 140 mg/dl (70-220); MAGNESIUM 2.2 mg/dl (1.7-2.5); POTASSIUM 4.9 mmol/L (3.5-5.1); SODIUM 140 mmol/L (135-144)
[2018-07-12 05:28] LABS: PHOSPHORUS 3.3 mg/dl (2.5-4.9)
[2018-07-12] MEDS: LANSOPRAZOLE 30 MG CAP GTB (05:46)
[2018-07-12] MEDS: DILTIAZEM 60 MG TAB PO ×3 (05:46→21:18)
[2018-07-12] MEDS: INSULIN ASPART [NOVOLOG] 3 ML PEN SC ×4 (07:35→21:26)
[2018-07-12] MEDS: APIXABAN 5 MG TABLET PO ×2 (08:19→20:22)
[2018-07-12] MEDS: ATENOLOL 25 MG TAB PO (08:38)
[2018-07-12] MEDS: METHYLPREDNISOLONE 125 MG INJ IV (08:38)
[2018-07-12] MEDS: CEFEPIME 1GM/50 ML (PMX) 50 ML IVPB (08:38)
[2018-07-12] MEDS: VANCOMYCIN 1.25 GM in SOD CHLORIDE 0.9% 250 ML IVPB (12:22)
[2018-07-12] MEDS: ATENOLOL 50 MG TAB PO (21:18)
[2018-07-13] MEDS: OXYCODONE/ACETAMINOPHEN (5/325) TAB PO (03:22)
[2018-07-13] MEDS: LANSOPRAZOLE 30 MG CAP GTB (05:58)
[2018-07-13] MEDS: DILTIAZEM 60 MG TAB PO ×3 (05:58→22:28)
[2018-07-13] MEDS: INSULIN ASPART [NOVOLOG] 3 ML PEN SC ×4 (07:35→21:00)
[2018-07-13] MEDS: APIXABAN 5 MG TABLET PO (08:58)
[2018-07-13] MEDS: METHYLPREDNISOLONE 125 MG INJ IV (08:58)
[2018-07-13] MEDS: CEFEPIME 1GM/50 ML (PMX) 50 ML IVPB (08:58)
[2018-07-13] MEDS: ATENOLOL 50 MG TAB PO ×2 (08:59→21:21)
[2018-07-13 11:53] LABS: VANCOMYCIN,TROUGH 12.2 ug/ml (10.0-20.0)
[2018-07-13] MEDS: VANCOMYCIN 1.25 GM in SOD CHLORIDE 0.9% 250 ML IVPB (13:49)
[2018-07-14 05:19] LABS: ADD MAN DIFF? NO
[2018-07-14 05:27] LABS: WHITE BLOOD COUNT 18.3 10^3/ul (4.8-10.8)
[2018-07-14 05:27] LABS: BASOPHILS % 0.1 % (0.0-2.0); HEMATOCRIT 34.1 % (42.0-52.0); HEMOGLOBIN 11.7 g/dl (14.0-18.0); LYMPHOCYTES # 1.3 10^3/ul (0.8-2.9); LYMPHOCYTES % 7.2 % (15.0-51.0); MEAN CORPUSCULAR HEMOGLOBIN 31.6 pg (29.0-33.0); MEAN CORPUSCULAR HGB CONC 34.3 g/dl (32.0-37.0); MEAN CORPUSCULAR VOLUME 92.2 fl (82.0-101.0); MEAN PLATELET VOLUME 10.2 fl (7.4-10.4); MONOCYTE # 1.4 10^3/ul (0.3-0.9); MONOCYTES % 7.6 % (0.0-11.0); NEUTROPHIL # 15.3 10^3/ul (1.6-7.5); NEUTROPHILS % 83.6 % (39.0-77.0); PLATELET COUNT 248 10^3/UL (140-415); RED CELL DISTRIBUTION WIDTH 13.3 % (11.5-14.5)
[2018-07-14] MEDS: LANSOPRAZOLE 30 MG CAP GTB (05:36)
[2018-07-14] MEDS: DILTIAZEM 60 MG TAB PO ×3 (05:36→22:08)
[2018-07-14] MEDS: INSULIN ASPART [NOVOLOG] 3 ML PEN SC ×4 (07:35→20:55)
[2018-07-14] MEDS: LIDOCAINE 1% (MPF) 5 ML VIAL ×3 (08:25→08:33)
[2018-07-14] MEDS: CEFEPIME 1GM/50 ML (PMX) 50 ML IVPB (08:25)
[2018-07-14] MEDS: METHYLPREDNISOLONE 125 MG INJ IV (08:26)
[2018-07-14] MEDS: ATENOLOL 50 MG TAB PO ×2 (08:26→20:51)
[2018-07-14] MEDS: OXYCODONE/ACETAMINOPHEN (5/325) TAB PO (08:34)
[2018-07-14] MEDS: GUAIFENESIN/DM 5ML CUP PO ×2 (11:42→22:15)
[2018-07-14] MEDS: VANCOMYCIN 1.25 GM in SOD CHLORIDE 0.9% 250 ML IVPB (12:22)
[2018-07-14] MEDS: APIXABAN 5 MG TABLET PO (20:55)
[2018-07-15] MEDS: LANSOPRAZOLE 30 MG CAP GTB (05:17)
[2018-07-15] MEDS: DILTIAZEM 60 MG TAB PO ×3 (05:17→21:09)
[2018-07-15 05:40] LABS: ABNORMAL IP MESSAGE 1; HEMATOCRIT 34.3 % (42.0-52.0); HEMOGLOBIN 11.5 g/dl (14.0-18.0); MEAN CORPUSCULAR HEMOGLOBIN 31.5 pg (29.0-33.0); MEAN CORPUSCULAR HGB CONC 33.5 g/dl (32.0-37.0); PLATELET COUNT 256 10^3/UL (140-415); POSITIVE DIFF @See below; RED BLOOD COUNT 3.65 10^6/ul (4.70-6.10); RED CELL DISTRIBUTION WIDTH 13.3 % (11.5-14.5)
[2018-07-15 06:11] LABS: PHOSPHORUS 3.9 mg/dl (2.5-4.9)
[2018-07-15 06:14] LABS: ADD MAN DIFF? YES
[2018-07-15 06:48] LABS: ANION GAP 8 (5-13); BLOOD UREA NITROGEN 41 mg/dl (7-20); CALCIUM 8.8 mg/dl (8.4-10.2); CARBON DIOXIDE 28 mmol/L (21-31); CHLORIDE 99 mmol/L (97-110); CREATININE 1.09 mg/dl (0.61-1.24); GLUCOSE 127 mg/dl (70-220); SODIUM 135 mmol/L (135-144)
[2018-07-15] MEDS: INSULIN ASPART [NOVOLOG] 3 ML PEN SC ×4 (07:35→21:00)
[2018-07-15 09:39] LABS: ANISOCYTOSIS 1+ (0-0); BAND NEUTROPHILS % (M) 4 % (0-4); LYMPHOCYTES #M 1.5 10^3/ul (0.8-2.9); LYMPHOCYTES % (M) 6 % (15-51); MONOCYTE #M 2.5 10^3/ul (0.3-0.9); MONOCYTES % (M) 10 % (0-11); PLATELET ESTIMATE NORMAL; REACTIVE LYMPHOCYTES #M 0.2 10^3/ul (0.0-0.0); REACTIVE LYMPHOCYTES% (M) 1 % (0-0); SEGMENTED NEUTROPHILS (M) % 79 % (39-77); SMUDGE%M 7 % (0-0)
[2018-07-15] MEDS: CEFEPIME 1GM/50 ML (PMX) 50 ML IVPB (09:40)
[2018-07-15] MEDS: predniSONE 20 MG TAB PO (09:40)
[2018-07-15] MEDS: APIXABAN 5 MG TABLET PO ×2 (09:40→21:08)
[2018-07-15] MEDS: ATENOLOL 50 MG TAB PO ×2 (09:41→21:09)
[2018-07-15] MEDS: VANCOMYCIN 1.25 GM in SOD CHLORIDE 0.9% 250 ML IVPB (14:16)
[2018-07-16] MEDS: DILTIAZEM 60 MG TAB PO ×3 (05:10→22:19)
[2018-07-16] MEDS: LANSOPRAZOLE 30 MG CAP GTB (05:10)
[2018-07-16 06:26] LABS: ADD MAN DIFF? NO
[2018-07-16 06:39] LABS: ABNORMAL IP MESSAGE 1; BASOPHILS % 0.1 % (0.0-2.0); EOSINOPHILS % 0.2 % (0.0-7.0); HEMATOCRIT 31.5 % (42.0-52.0); HEMOGLOBIN 10.7 g/dl (14.0-18.0); LYMPHOCYTES # 1.5 10^3/ul (0.8-2.9); LYMPHOCYTES % 6.8 % (15.0-51.0); MEAN CORPUSCULAR HEMOGLOBIN 31.8 pg (29.0-33.0); MEAN CORPUSCULAR VOLUME 93.5 fl (82.0-101.0); MEAN PLATELET VOLUME 10.1 fl (7.4-10.4); MONOCYTE # 2.1 10^3/ul (0.3-0.9); MONOCYTES % 9.1 % (0.0-11.0); NEUTROPHIL # 18.5 10^3/ul (1.6-7.5); NEUTROPHILS % 82.2 % (39.0-77.0); PLATELET COUNT 233 10^3/UL (140-415); POSITIVE DIFF @See below; RED BLOOD COUNT 3.37 10^6/ul (4.70-6.10); RED CELL DISTRIBUTION WIDTH 13.3 % (11.5-14.5)
[2018-07-16 06:39] LABS: WHITE BLOOD COUNT 22.5 10^3/ul (4.8-10.8)
[2018-07-16 07:10] LABS: PHOSPHORUS 3.2 mg/dl (2.5-4.9)
[2018-07-16 07:10] LABS: MAGNESIUM 1.9 mg/dl (1.7-2.5)
[2018-07-16 07:11] LABS: ANION GAP 6 (5-13); BLOOD UREA NITROGEN 38 mg/dl (7-20); CALCIUM 8.6 mg/dl (8.4-10.2); CARBON DIOXIDE 29 mmol/L (21-31); CHLORIDE 100 mmol/L (97-110); CREATININE 1.07 mg/dl (0.61-1.24); GLUCOSE 106 mg/dl (70-220); POTASSIUM 4.5 mmol/L (3.5-5.1); SODIUM 135 mmol/L (135-144)
[2018-07-16] MEDS: INSULIN ASPART [NOVOLOG] 3 ML PEN SC ×4 (07:30→20:05)
[2018-07-16] MEDS: CEFEPIME 1GM/50 ML (PMX) 50 ML IVPB (09:03)
[2018-07-16] MEDS: APIXABAN 5 MG TABLET PO ×2 (09:05→20:02)
[2018-07-16] MEDS: predniSONE 10 MG TAB PO (09:05)
[2018-07-16] MEDS: ATENOLOL 50 MG TAB PO ×2 (09:05→20:02)
[2018-07-16] MEDS: VANCOMYCIN 1.25 GM in SOD CHLORIDE 0.9% 250 ML IVPB (12:07)
[2018-07-17] MEDS: LANSOPRAZOLE 30 MG CAP GTB (06:15)
[2018-07-17] MEDS: DILTIAZEM 60 MG TAB PO ×3 (06:16→20:30)
[2018-07-17] MEDS: INSULIN ASPART [NOVOLOG] 3 ML PEN SC ×4 (08:00→20:32)
[2018-07-17] MEDS: APIXABAN 5 MG TABLET PO ×2 (08:19→20:32)
[2018-07-17] MEDS: ATENOLOL 50 MG TAB PO ×2 (08:19→20:30)
[2018-07-17] MEDS: predniSONE 10 MG TAB PO (08:19)
[2018-07-17] MEDS: CEFEPIME 1GM/50 ML (PMX) 50 ML IVPB (08:19)
[2018-07-17 12:05] LABS: VANCOMYCIN,TROUGH 13.1 ug/ml (10.0-20.0)
[2018-07-17] MEDS: VANCOMYCIN 1.25 GM in SOD CHLORIDE 0.9% 250 ML IVPB (12:33)
[2018-07-18 06:17] LABS: CREATININE 0.98 mg/dl (0.61-1.24)
[2018-07-18 06:17] LABS: BLOOD UREA NITROGEN 33 mg/dl (7-20)
[2018-07-18] MEDS: LANSOPRAZOLE 30 MG CAP GTB (06:19)
[2018-07-18] MEDS: DILTIAZEM 60 MG TAB PO ×3 (06:20→21:24)
[2018-07-18] MEDS: INSULIN ASPART [NOVOLOG] 3 ML PEN SC ×4 (08:00→21:27)
[2018-07-18] MEDS: ATENOLOL 50 MG TAB PO ×2 (08:13→21:23)
[2018-07-18] MEDS: APIXABAN 5 MG TABLET PO ×2 (08:13→21:24)
[2018-07-18] MEDS: predniSONE 20 MG TAB PO (08:13)
[2018-07-18] MEDS: CEFEPIME 1GM/50 ML (PMX) 50 ML IVPB (08:14)
[2018-07-18] MEDS: VANCOMYCIN 1.25 GM in SOD CHLORIDE 0.9% 250 ML IVPB (12:00)
[2018-07-19 06:13] LABS: ADD MAN DIFF? NO
[2018-07-19] MEDS: LANSOPRAZOLE 30 MG CAP GTB (06:14)
[2018-07-19] MEDS: DILTIAZEM 60 MG TAB PO ×3 (06:16→22:00)
[2018-07-19 06:23] LABS: ABNORMAL IP MESSAGE 1; BASOPHILS % 0.1 % (0.0-2.0); EOSINOPHILS # 0.1 10^3/ul (0.0-0.5); EOSINOPHILS % 0.7 % (0.0-7.0); HEMATOCRIT 29.9 % (42.0-52.0); LYMPHOCYTES # 1.9 10^3/ul (0.8-2.9); LYMPHOCYTES % 11.3 % (15.0-51.0); MEAN CORPUSCULAR HEMOGLOBIN 31.4 pg (29.0-33.0); MEAN CORPUSCULAR HGB CONC 33.4 g/dl (32.0-37.0); MEAN PLATELET VOLUME 9.9 fl (7.4-10.4); MONOCYTE # 1.6 10^3/ul (0.3-0.9); MONOCYTES % 9.9 % (0.0-11.0); NEUTROPHIL # 12.6 10^3/ul (1.6-7.5); NEUTROPHILS % 76.5 % (39.0-77.0); PLATELET COUNT 190 10^3/UL (140-415); POSITIVE DIFF @See below; RED BLOOD COUNT 3.18 10^6/ul (4.70-6.10); RED CELL DISTRIBUTION WIDTH 13.5 % (11.5-14.5)
[2018-07-19 06:23] LABS: WHITE BLOOD COUNT 16.5 10^3/ul (4.8-10.8)
[2018-07-19 06:54] LABS: ANION GAP 6 (5-13); BLOOD UREA NITROGEN 28 mg/dl (7-20); CALCIUM 8.5 mg/dl (8.4-10.2); CARBON DIOXIDE 28 mmol/L (21-31); CHLORIDE 101 mmol/L (97-110); CREATININE 0.93 mg/dl (0.61-1.24); GLUCOSE 88 mg/dl (70-220); POTASSIUM 4.4 mmol/L (3.5-5.1); SODIUM 135 mmol/L (135-144)
[2018-07-19] MEDS: INSULIN ASPART [NOVOLOG] 3 ML PEN SC ×4 (07:50→20:39)
[2018-07-19] MEDS: CEFEPIME 1GM/50 ML (PMX) 50 ML IVPB (08:56)
[2018-07-19] MEDS: APIXABAN 5 MG TABLET PO ×2 (08:57→20:33)
[2018-07-19] MEDS: ATENOLOL 50 MG TAB PO ×2 (08:58→20:33)
[2018-07-19] MEDS: predniSONE 5 MG TAB PO (08:58)
[2018-07-19] MEDS: VANCOMYCIN 1.25 GM in SOD CHLORIDE 0.9% 250 ML IVPB (13:07)
[2018-07-20 05:08] LABS: ADD MAN DIFF? NO
[2018-07-20 05:09] LABS: BASOPHILS % 0.1 % (0.0-2.0); EOSINOPHILS # 0.1 10^3/ul (0.0-0.5); EOSINOPHILS % 0.6 % (0.0-7.0); HEMATOCRIT 29.1 % (42.0-52.0); HEMOGLOBIN 9.7 g/dl (14.0-18.0); LYMPHOCYTES # 1.8 10^3/ul (0.8-2.9); LYMPHOCYTES % 10.6 % (15.0-51.0); MEAN CORPUSCULAR HEMOGLOBIN 31.4 pg (29.0-33.0); MEAN CORPUSCULAR HGB CONC 33.3 g/dl (32.0-37.0); MEAN CORPUSCULAR VOLUME 94.2 fl (82.0-101.0); MEAN PLATELET VOLUME 9.8 fl (7.4-10.4); MONOCYTE # 1.4 10^3/ul (0.3-0.9); MONOCYTES % 8.2 % (0.0-11.0); NEUTROPHIL # 13.2 10^3/ul (1.6-7.5); NEUTROPHILS % 79.2 % (39.0-77.0); PLATELET COUNT 171 10^3/UL (140-415); RED BLOOD COUNT 3.09 10^6/ul (4.70-6.10); RED CELL DISTRIBUTION WIDTH 13.8 % (11.5-14.5)
[2018-07-20 05:09] LABS: WHITE BLOOD COUNT 16.7 10^3/ul (4.8-10.8)
[2018-07-20 05:42] LABS: ANION GAP 8 (5-13); BLOOD UREA NITROGEN 29 mg/dl (7-20); CALCIUM 8.5 mg/dl (8.4-10.2); CARBON DIOXIDE 28 mmol/L (21-31); CHLORIDE 99 mmol/L (97-110); CREATININE 1.02 mg/dl (0.61-1.24); GLUCOSE 106 mg/dl (70-220); POTASSIUM 4.6 mmol/L (3.5-5.1); SODIUM 135 mmol/L (135-144)
[2018-07-20] MEDS: DILTIAZEM 60 MG TAB PO ×3 (06:13→22:38)
[2018-07-20] MEDS: PANTOPRAZOLE (EC) 40 MG TAB PO (06:13)
[2018-07-20] MEDS: INSULIN ASPART [NOVOLOG] 3 ML PEN SC ×4 (08:00→21:00)
[2018-07-20] MEDS: predniSONE 10 MG TAB PO (08:44)
[2018-07-20] MEDS: CEFEPIME 1GM/50 ML (PMX) 50 ML IVPB (08:44)
[2018-07-20] MEDS: ATENOLOL 50 MG TAB PO ×2 (08:45→20:30)
[2018-07-20] MEDS: APIXABAN 5 MG TABLET PO ×2 (08:45→20:31)
[2018-07-21] MEDS: PANTOPRAZOLE (EC) 40 MG TAB PO (05:49)
[2018-07-21] MEDS: DILTIAZEM 60 MG TAB PO ×3 (05:49→22:17)
[2018-07-21 06:10] LABS: ADD MAN DIFF? NO
[2018-07-21 06:28] LABS: WHITE BLOOD COUNT 15.8 10^3/ul (4.8-10.8)
[2018-07-21 06:28] LABS: BASOPHILS % 0.1 % (0.0-2.0); EOSINOPHILS # 0.2 10^3/ul (0.0-0.5); HEMATOCRIT 28.5 % (42.0-52.0); HEMOGLOBIN 9.6 g/dl (14.0-18.0); LYMPHOCYTES # 1.9 10^3/ul (0.8-2.9); LYMPHOCYTES % 12.2 % (15.0-51.0); MEAN CORPUSCULAR HEMOGLOBIN 31.9 pg (29.0-33.0); MEAN CORPUSCULAR HGB CONC 33.7 g/dl (32.0-37.0); MEAN CORPUSCULAR VOLUME 94.7 fl (82.0-101.0); MEAN PLATELET VOLUME 10.2 fl (7.4-10.4); MONOCYTE # 1.4 10^3/ul (0.3-0.9); MONOCYTES % 8.8 % (0.0-11.0); NEUTROPHIL # 12.1 10^3/ul (1.6-7.5); NEUTROPHILS % 76.8 % (39.0-77.0); PLATELET COUNT 169 10^3/UL (140-415); RED BLOOD COUNT 3.01 10^6/ul (4.70-6.10); RED CELL DISTRIBUTION WIDTH 13.9 % (11.5-14.5)
[2018-07-21 06:37] LABS: ANION GAP 8 (5-13); BLOOD UREA NITROGEN 32 mg/dl (7-20); CALCIUM 8.7 mg/dl (8.4-10.2); CARBON DIOXIDE 29 mmol/L (21-31); CHLORIDE 99 mmol/L (97-110); CREATININE 1.09 mg/dl (0.61-1.24); GLUCOSE 101 mg/dl (70-220); SODIUM 136 mmol/L (135-144)
[2018-07-21] MEDS: INSULIN ASPART [NOVOLOG] 3 ML PEN SC ×4 (08:00→20:20)
[2018-07-21] MEDS: APIXABAN 5 MG TABLET PO ×2 (09:01→20:12)
[2018-07-21] MEDS: predniSONE 10 MG TAB PO (09:01)
[2018-07-21] MEDS: ATENOLOL 50 MG TAB PO ×2 (09:02→20:13)
[2018-07-21] MEDS: GUAIFENESIN/DM 5ML CUP PO (20:46)
[2018-07-22] MEDS: PANTOPRAZOLE (EC) 40 MG TAB PO (05:42)
[2018-07-22] MEDS: DILTIAZEM 60 MG TAB PO ×3 (05:42→22:23)
[2018-07-22] MEDS: INSULIN ASPART [NOVOLOG] 3 ML PEN SC ×4 (08:00→21:00)
[2018-07-22] MEDS: APIXABAN 5 MG TABLET PO ×2 (08:20→22:23)
[2018-07-22] MEDS: ATENOLOL 50 MG TAB PO ×2 (08:20→22:23)
[2018-07-22] MEDS: predniSONE 10 MG TAB PO (08:21)
[2018-07-22] MEDS: GUAIFENESIN/DM 5ML CUP PO (13:34)
[2018-07-23] MEDS: PANTOPRAZOLE (EC) 40 MG TAB PO (05:45)
[2018-07-23] MEDS: DILTIAZEM 60 MG TAB PO ×3 (05:47→21:48)
[2018-07-23 05:56] LABS: ADD MAN DIFF? NO
[2018-07-23 05:59] LABS: WHITE BLOOD COUNT 14.4 10^3/ul (4.8-10.8)
[2018-07-23 05:59] LABS: BASOPHILS % 0.1 % (0.0-2.0); EOSINOPHILS # 0.2 10^3/ul (0.0-0.5); EOSINOPHILS % 1.2 % (0.0-7.0); HEMATOCRIT 27.4 % (42.0-52.0); HEMOGLOBIN 9.2 g/dl (14.0-18.0); LYMPHOCYTES # 2.1 10^3/ul (0.8-2.9); LYMPHOCYTES % 14.4 % (15.0-51.0); MEAN CORPUSCULAR HEMOGLOBIN 31.1 pg (29.0-33.0); MEAN CORPUSCULAR HGB CONC 33.6 g/dl (32.0-37.0); MEAN CORPUSCULAR VOLUME 92.6 fl (82.0-101.0); MEAN PLATELET VOLUME 9.9 fl (7.4-10.4); MONOCYTE # 1.3 10^3/ul (0.3-0.9); MONOCYTES % 8.9 % (0.0-11.0); NEUTROPHIL # 10.7 10^3/ul (1.6-7.5); NEUTROPHILS % 74.4 % (39.0-77.0); PLATELET COUNT 169 10^3/UL (140-415); RED BLOOD COUNT 2.96 10^6/ul (4.70-6.10); RED CELL DISTRIBUTION WIDTH 13.9 % (11.5-14.5)
[2018-07-23 06:42] LABS: ALANINE AMINOTRANSFERASE 38 IU/L (13-69); ALBUMIN 2.8 g/dl (3.3-4.9); ALBUMIN/GLOBULIN RATIO 1.12; ALKALINE PHOSPHATASE 94 IU/L (42-121); ASPARTATE AMINO TRANSFERASE 23 IU/L (15-46); BILIRUBIN,INDIRECT 0.4 mg/dl (0-1.1); BILIRUBIN,TOTAL 0.4 mg/dl (0.2-1.3); BLOOD UREA NITROGEN 24 mg/dl (7-20); CALCIUM 8.3 mg/dl (8.4-10.2); CARBON DIOXIDE 27 mmol/L (21-31); CHLORIDE 99 mmol/L (97-110); CREATININE 1.17 mg/dl (0.61-1.24); GLUCOSE 106 mg/dl (70-220); POTASSIUM 4.3 mmol/L (3.5-5.1); TOTAL PROTEIN 5.3 g/dl (6.1-8.1)
[2018-07-23] MEDS: INSULIN ASPART [NOVOLOG] 3 ML PEN SC ×4 (08:00→22:02)
[2018-07-23] MEDS: APIXABAN 5 MG TABLET PO ×2 (08:23→20:23)
[2018-07-23] MEDS: ATENOLOL 50 MG TAB PO ×2 (08:23→20:23)
[2018-07-23] MEDS: predniSONE 10 MG TAB PO (08:23)
[2018-07-23 19:00] LABS: ANION GAP 6 (5-13); SODIUM 132 mmol/L (135-144)
[2018-07-24] MEDS: PANTOPRAZOLE (EC) 40 MG TAB PO (05:31)
[2018-07-24] MEDS: DILTIAZEM 60 MG TAB PO ×3 (05:32→22:38)
[2018-07-24] MEDS: INSULIN ASPART [NOVOLOG] 3 ML PEN SC ×4 (07:47→21:00)
[2018-07-24] MEDS: predniSONE 10 MG TAB PO (08:40)
[2018-07-24] MEDS: ATENOLOL 50 MG TAB PO ×2 (08:40→22:37)
[2018-07-24] MEDS: APIXABAN 5 MG TABLET PO ×2 (08:40→22:36)
[2018-07-25] MEDS: PANTOPRAZOLE (EC) 40 MG TAB PO (06:32)
[2018-07-25] MEDS: DILTIAZEM 60 MG TAB PO ×2 (06:33→14:05)
[2018-07-25] MEDS: INSULIN ASPART [NOVOLOG] 3 ML PEN SC ×3 (08:00→17:33)
[2018-07-25] MEDS: predniSONE 10 MG TAB PO (08:15)
[2018-07-25] MEDS: APIXABAN 5 MG TABLET PO (08:15)
[2018-07-25] MEDS: ATENOLOL 50 MG TAB PO (08:16)
== END 2018-07-25 18:05 | DRG 208 ==
LOC: ICU 07-06 22:43 → 6WM 07-10 10:08 → ICU 07-11 05:18 → 6WM 07-15 19:09 → E/R 12:01 → TEL 13:54
PROC: 5A09357 Assistance with Respiratory Ventilation, Less than 24 Consecutive Hours, Continuous Positive Airway Pressure (ICD-10-PCS; 2018-07-03)
PROC: 0W993ZX Drainage of Right Pleural Cavity, Percutaneous Approach, Diagnostic (ICD-10-PCS; 2018-07-04)
PROC: 5A1945Z Respiratory Ventilation, 24-96 Consecutive Hours (ICD-10-PCS; principal; 2018-07-07)
PROC: 0BH18EZ Insertion of Endotracheal Airway into Trachea, Via Natural or Artificial Opening Endoscopic (ICD-10-PCS; 2018-07-07)
PROC: 0W9930Z Drainage of Right Pleural Cavity with Drainage Device, Percutaneous Approach (ICD-10-PCS; 2018-07-07)
PROC: 0W9B3ZZ Drainage of Left Pleural Cavity, Percutaneous Approach (ICD-10-PCS; 2018-07-14)
DX: J44.1 Chronic obstructive pulmonary disease with (acute) exacerbation (principal); N17.0 Acute kidney failure with tubular necrosis; J18.9 Pneumonia, unspecified organism; J96.91 Respiratory failure, unspecified with hypoxia; I50.33 Acute on chronic diastolic (congestive) heart failure; E87.2 Acidosis; I13.0 Hypertensive heart and chronic kidney disease with heart failure and stage 1 through stage 4 chronic kidney disease, or unspecified chronic kidney disease; I42.9 Cardiomyopathy, unspecified; J90 Pleural effusion, not elsewhere classified; E87.1 Hypo-osmolality and hyponatremia; J95.811 Postprocedural pneumothorax; N18.9 Chronic kidney disease, unspecified; E78.5 Hyperlipidemia, unspecified; I25.10 Atherosclerotic heart disease of native coronary artery without angina pectoris; Y84.4 Aspiration of fluid as the cause of abnormal reaction of the patient, or of later complication, without mention of misadventure at the time of the procedure; Y92.238 Other place in hospital as the place of occurrence of the external cause; J98.2 Interstitial emphysema; I48.2 Chronic atrial fibrillation; I73.9 Peripheral vascular disease, unspecified; Z85.118 Personal history of other malignant neoplasm of bronchus and lung
CPT/HCPCS: 31500; 36600; 70360; 71045; 71250; 76942; 80048; 80053; 80202; 81001; 82042; 82550; 82553; 82565; 82803; 82962; 83036; 83615; 83690; 83735; 83880; 84100; 84157; 84300; 84436; 84479; 84484; 84520; 85025; 85610; 85730; 87070; 87081; 87102; 87116; 88104; 88305; 88341; 88342; 89051; 90686; 92526; 92610; 93005; 93306; 94002; 94003; 94640; 94644; 94660; 94664; 94770; 96374; 96375; 97110; 97116; 97162; 97530; 99291-25

== ENCOUNTER → 2018-11-12 | Outpatient (CLI) | payer BC ==
[2018-11-12 09:46] LABS: ADD MAN DIFF? NO
[2018-11-12 09:51] LABS: BASOPHIL # 0.1 10^3/ul (0.0-0.1); EOSINOPHILS # 0.2 10^3/ul (0.0-0.5); EOSINOPHILS % 2.8 % (0.0-7.0); HEMATOCRIT 40.2 % (42.0-52.0); HEMOGLOBIN 13.3 g/dl (14.0-18.0); LYMPHOCYTES # 1.5 10^3/ul (0.8-2.9); MEAN CORPUSCULAR HEMOGLOBIN 29.2 pg (29.0-33.0); MEAN CORPUSCULAR HGB CONC 33.1 g/dl (32.0-37.0); MEAN CORPUSCULAR VOLUME 88.4 fl (82.0-101.0); MEAN PLATELET VOLUME 8.7 fl (7.4-10.4); MONOCYTE # 1.2 10^3/ul (0.3-0.9); MONOCYTES % 14.6 % (0.0-11.0); NEUTROPHIL # 4.9 10^3/ul (1.6-7.5); NEUTROPHILS % 62.2 % (39.0-77.0); PLATELET COUNT 349 10^3/UL (140-415); RED BLOOD COUNT 4.55 10^6/ul (4.70-6.10); RED CELL DISTRIBUTION WIDTH 13.9 % (11.5-14.5)
[2018-11-12 09:51] LABS: WHITE BLOOD COUNT 7.9 10^3/ul (4.8-10.8)
[2018-11-12 10:07] LABS: ALANINE AMINOTRANSFERASE 9 IU/L (13-69); ALBUMIN/GLOBULIN RATIO 1.29; ALKALINE PHOSPHATASE 91 IU/L (42-121); ANION GAP 12 (5-13); ASPARTATE AMINO TRANSFERASE 24 IU/L (15-46); BILIRUBIN,INDIRECT 0.5 mg/dl (0-1.1); BILIRUBIN,TOTAL 0.5 mg/dl (0.2-1.3); BLOOD UREA NITROGEN 17 mg/dl (7-20); CALCIUM 9.5 mg/dl (8.4-10.2); CARBON DIOXIDE 31 mmol/L (21-31); CHLORIDE 92 mmol/L (97-110); CHOL/HDL RATIO 3.5 RATIO; CHOLESTEROL 175 mg/dl (100-200); CREATININE 1.26 mg/dl (0.61-1.24); GLUCOSE 121 mg/dl (70-220); HDL CHOLESTEROL 50 mg/dl (31-75); LDL CHOLESTEROL,CALCULATED 103 mg/dl; POTASSIUM 3.2 mmol/L (3.5-5.1); SODIUM 135 mmol/L (135-144); TOTAL PROTEIN 7.1 g/dl (6.1-8.1); TRIGLYCERIDES 111 mg/dl (0-149)
== END | disposition home or self-care (01) ==
LOC: LAB 09:11
DX: J44.9 Chronic obstructive pulmonary disease, unspecified (principal)
CPT/HCPCS: 80053; 80061; 85025

== ENCOUNTER 2018-12-04 08:54 | Inpatient (IN) | payer BC ==
[2018-12-04 11:09] LABS: ADD MAN DIFF? NO
[2018-12-04 11:12] LABS: WHITE BLOOD COUNT 12.1 10^3/ul (4.8-10.8)
[2018-12-04 11:12] LABS: BASOPHILS % 0.2 % (0.0-2.0); EOSINOPHILS # 0.1 10^3/ul (0.0-0.5); EOSINOPHILS % 0.7 % (0.0-7.0); HEMATOCRIT 37.7 % (42.0-52.0); HEMOGLOBIN 12.5 g/dl (14.0-18.0); LYMPHOCYTES # 1.4 10^3/ul (0.8-2.9); LYMPHOCYTES % 11.8 % (15.0-51.0); MEAN CORPUSCULAR HEMOGLOBIN 29.3 pg (29.0-33.0); MEAN CORPUSCULAR HGB CONC 33.2 g/dl (32.0-37.0); MEAN CORPUSCULAR VOLUME 88.3 fl (82.0-101.0); MEAN PLATELET VOLUME 9.1 fl (7.4-10.4); MONOCYTE # 1.2 10^3/ul (0.3-0.9); MONOCYTES % 9.8 % (0.0-11.0); NEUTROPHIL # 9.3 10^3/ul (1.6-7.5); PLATELET COUNT 319 10^3/UL (140-415); RED BLOOD COUNT 4.27 10^6/ul (4.70-6.10); RED CELL DISTRIBUTION WIDTH 14.3 % (11.5-14.5)
[2018-12-04 11:31] LABS: ANION GAP 7 (5-13); BLOOD UREA NITROGEN 18 mg/dl (7-20); CALCIUM 9.1 mg/dl (8.4-10.2); CARBON DIOXIDE 33 mmol/L (21-31); CHLORIDE 94 mmol/L (97-110); CREATININE 1.29 mg/dl (0.61-1.24); GLUCOSE 122 mg/dl (70-220); POTASSIUM 4.1 mmol/L (3.5-5.1); SODIUM 134 mmol/L (135-144)
[2018-12-04 11:43] LABS: B-TYPE NATRIURETIC PEPTIDE 24900 PG/ML (0-450)
[2018-12-04 11:48] LABS: TROPONIN-I 0.161 ng/ml (0.000-0.120)
[2018-12-04 11:49] LABS: INR 1.15; PROTIME 14.8 Sec (11.9-14.9); PT RATIO 1.2
[2018-12-04] MEDS ORDERED: ONDANSETRON 4 MG INJ IV ×2 (12:00→17:30)
[2018-12-04] MEDS: FUROSEMIDE 40 MG INJ IV ×3 (12:00→18:55)
[2018-12-04] MEDS ORDERED: ACETAMINOPHEN 325 MG TAB PO ×2 (12:00→17:30)
[2018-12-04] MEDS: ASPIRIN 81 MG TAB PO (13:16)
[2018-12-04] MEDS ORDERED: NACL 0.9% 3 ML SYG IV (17:30)
[2018-12-04] MEDS: ALBUTEROL/IPRATROPIUM (NEB) 3 ML AMP HHN ×2 (17:36→20:06)
[2018-12-04 18:00] LABS: AADO2 Arterial 242.2 mmHg (7.0-24.0); Allen Test ACCEPTAB; Arterial Base Excess 5.7 mmol/L (-3.0-3); Arterial Blood Gas Oxygen Sat 98.8 mmHG (95.0-100.0); Arterial COHb 1.3 % (0.0-3.0); Arterial Fraction of Oxyhgb 97.2 % (93.0-99.0); Arterial HCO3 30.2 mmol/L (22.0-26.0); Arterial MetHb 0.3 % (0.0-1.5); Arterial pCO2 43.2 mmhg (35-45); MODE MASK - SIMPLE; Site Right Radial
[2018-12-04] MEDS: METHYLPREDNISOLONE 125 MG INJ IV (18:54)
[2018-12-04] MEDS: CEFTRIAXONE 1 GM/50 ML (PMX) 50 ML IVPB (18:55)
[2018-12-04 19:42] LABS: DIGOXIN 1.4 ng/ml (1.0-2.0)
[2018-12-04 19:49] LABS: CREATINE KINASE 33 IU/L (23-200)
[2018-12-04 19:58] LABS: CK INDEX 18.2
[2018-12-04 19:59] LABS: CK-MB 6.01 ng/ml (0.0-2.4)
[2018-12-04 20:02] LABS: TROPONIN-I 0.154 ng/ml (0.000-0.120)
[2018-12-04] MEDS: DILTIAZEM 30 MG TAB PO (22:41)
[2018-12-05] MEDS: DABIGATRAN 75 MG CAP PO ×3 (00:01→20:55)
[2018-12-05] MEDS: ALBUTEROL/IPRATROPIUM (NEB) 3 ML AMP HHN ×6 (00:56→19:57)
[2018-12-05 02:04] LABS: CREATINE KINASE 30 IU/L (23-200)
[2018-12-05 02:17] LABS: CK INDEX 20.1
[2018-12-05 02:40] LABS: CK-MB 6.03 ng/ml (0.0-2.4); TROPONIN-I 0.134 ng/ml (0.000-0.120)
[2018-12-05 05:35] LABS: WHITE BLOOD COUNT 7.2 10^3/ul (4.8-10.8)
[2018-12-05 05:35] LABS: ABNORMAL IP MESSAGE 1; HEMATOCRIT 37.2 % (42.0-52.0); HEMOGLOBIN 12.3 g/dl (14.0-18.0); LYMPHOCYTES # 0.4 10^3/ul (0.8-2.9); LYMPHOCYTES % 5.7 % (15.0-51.0); MEAN CORPUSCULAR HEMOGLOBIN 28.7 pg (29.0-33.0); MEAN CORPUSCULAR HGB CONC 33.1 g/dl (32.0-37.0); MEAN CORPUSCULAR VOLUME 86.9 fl (82.0-101.0); MONOCYTE # 0.1 10^3/ul (0.3-0.9); MONOCYTES % 1.5 % (0.0-11.0); NEUTROPHIL # 6.7 10^3/ul (1.6-7.5); NEUTROPHILS % 92.5 % (39.0-77.0); PLATELET COUNT 313 10^3/UL (140-415); POSITIVE DIFF @See below; RED BLOOD COUNT 4.28 10^6/ul (4.70-6.10); RED CELL DISTRIBUTION WIDTH 14.1 % (11.5-14.5)
[2018-12-05 05:36] LABS: ADD MAN DIFF? NO
[2018-12-05] MEDS: DILTIAZEM 30 MG TAB PO ×3 (05:44→20:55)
[2018-12-05] MEDS: FUROSEMIDE 40 MG INJ IV ×2 (05:47→17:05)
[2018-12-05] MEDS: PANTOPRAZOLE (EC) 40 MG TAB PO (05:48)
[2018-12-05 06:04] LABS: ALANINE AMINOTRANSFERASE 19 IU/L (13-69); ALBUMIN 3.2 g/dl (3.3-4.9); ALKALINE PHOSPHATASE 89 IU/L (42-121); ANION GAP 11 (5-13); ASPARTATE AMINO TRANSFERASE 23 IU/L (15-46); BILIRUBIN,INDIRECT 0.4 mg/dl (0-1.1); BILIRUBIN,TOTAL 0.4 mg/dl (0.2-1.3); BLOOD UREA NITROGEN 19 mg/dl (7-20); CALCIUM 9.1 mg/dl (8.4-10.2); CARBON DIOXIDE 28 mmol/L (21-31); CHLORIDE 96 mmol/L (97-110); CREATININE 1.24 mg/dl (0.61-1.24); GLUCOSE 159 mg/dl (70-220); MAGNESIUM 1.7 mg/dl (1.7-2.5); PHOSPHORUS 4.2 mg/dl (2.5-4.9); POTASSIUM 3.6 mmol/L (3.5-5.1); SODIUM 135 mmol/L (135-144); TOTAL PROTEIN 6.1 g/dl (6.1-8.1)
[2018-12-06] MEDS: FUROSEMIDE 40 MG INJ IV ×2 (05:50→18:49)
[2018-12-06] MEDS: DILTIAZEM 30 MG TAB PO ×3 (05:51→21:11)
[2018-12-06] MEDS: PANTOPRAZOLE (EC) 40 MG TAB PO (05:51)
[2018-12-06 06:12] LABS: ADD MAN DIFF? NO
[2018-12-06 06:15] LABS: WHITE BLOOD COUNT 14.4 10^3/ul (4.8-10.8)
[2018-12-06 06:15] LABS: BASOPHILS % 0.1 % (0.0-2.0); EOSINOPHILS % 0.1 % (0.0-7.0); HEMATOCRIT 33.1 % (42.0-52.0); HEMOGLOBIN 11.1 g/dl (14.0-18.0); LYMPHOCYTES # 1.3 10^3/ul (0.8-2.9); LYMPHOCYTES % 8.9 % (15.0-51.0); MEAN CORPUSCULAR HEMOGLOBIN 29.3 pg (29.0-33.0); MEAN CORPUSCULAR HGB CONC 33.5 g/dl (32.0-37.0); MEAN CORPUSCULAR VOLUME 87.3 fl (82.0-101.0); MEAN PLATELET VOLUME 9.2 fl (7.4-10.4); MONOCYTE # 1.1 10^3/ul (0.3-0.9); MONOCYTES % 7.9 % (0.0-11.0); NEUTROPHIL # 11.9 10^3/ul (1.6-7.5); NEUTROPHILS % 82.5 % (39.0-77.0); PLATELET COUNT 347 10^3/UL (140-415); RED BLOOD COUNT 3.79 10^6/ul (4.70-6.10); RED CELL DISTRIBUTION WIDTH 14.4 % (11.5-14.5)
[2018-12-06 06:25] LABS: HEMOGLOBIN A1C 5.8 % (0-5.9)
[2018-12-06 07:04] LABS: ANION GAP 8 (5-13); BLOOD UREA NITROGEN 22 mg/dl (7-20); CARBON DIOXIDE 31 mmol/L (21-31); CHLORIDE 96 mmol/L (97-110); CREATININE 1.33 mg/dl (0.61-1.24); GLUCOSE 123 mg/dl (70-220); POTASSIUM 3.3 mmol/L (3.5-5.1); SODIUM 135 mmol/L (135-144)
[2018-12-06] MEDS: DABIGATRAN 75 MG CAP PO ×2 (08:50→21:10)
[2018-12-06] MEDS: ALBUTEROL/IPRATROPIUM (NEB) 3 ML AMP HHN ×6 (10:07→20:51)
[2018-12-06] MEDS: POTASSIUM CHLORIDE (SR) 20 MEQ TAB PO ×2 (11:37→21:09)
[2018-12-06 14:07] LABS: ADD UMIC NO; UR ASCORBIC ACID NEGATIVE (NEGATIVE); UR BILIRUBIN (Dip) NEGATIVE (NEGATIVE); UR BLOOD (Dip) NEGATIVE (NEGATIVE); UR CLARITY SLIGHTLY CLOUDY (CLEAR); UR COLOR YELLOW (YELLOW); UR GLUCOSE (Dip) NEGATIVE (NEGATIVE); UR KETONES (Dip) NEGATIVE (NEGATIVE); UR LEUKOCYTE ESTERASE (Dip) NEGATIVE Leu/ul (NEGATIVE); UR NITRITE (Dip) NEGATIVE (NEGATIVE); UR RBC 1 /HPF (0-5); UR SPECIFIC GRAVITY (Dip) 1.009 (1.003-1.030); UR TOTAL PROTEIN (Dip) NEGATIVE (NEGATIVE); UR UROBILINOGEN (Dip) NEGATIVE (NEGATIVE); UR WBC 1 /HPF (0-5)
[2018-12-06] MEDS: MAGNESIUM SULFATE 3 GM in DEXTROSE 5% 100 ML IVPB (18:49)
[2018-12-07] MEDS: ALBUTEROL/IPRATROPIUM (NEB) 3 ML AMP HHN ×6 (00:22→20:09)
[2018-12-07 06:13] LABS: ADD MAN DIFF? NO
[2018-12-07 06:22] LABS: WHITE BLOOD COUNT 10.4 10^3/ul (4.8-10.8)
[2018-12-07 06:22] LABS: BASOPHILS % 0.1 % (0.0-2.0); EOSINOPHILS % 0.4 % (0.0-7.0); HEMATOCRIT 37.4 % (42.0-52.0); HEMOGLOBIN 12.2 g/dl (14.0-18.0); LYMPHOCYTES # 1.7 10^3/ul (0.8-2.9); LYMPHOCYTES % 16.2 % (15.0-51.0); MEAN CORPUSCULAR HEMOGLOBIN 28.8 pg (29.0-33.0); MEAN CORPUSCULAR HGB CONC 32.6 g/dl (32.0-37.0); MEAN CORPUSCULAR VOLUME 88.4 fl (82.0-101.0); MEAN PLATELET VOLUME 9.2 fl (7.4-10.4); MONOCYTE # 1.1 10^3/ul (0.3-0.9); MONOCYTES % 10.5 % (0.0-11.0); NEUTROPHIL # 7.6 10^3/ul (1.6-7.5); NEUTROPHILS % 72.6 % (39.0-77.0); PLATELET COUNT 354 10^3/UL (140-415); RED BLOOD COUNT 4.23 10^6/ul (4.70-6.10); RED CELL DISTRIBUTION WIDTH 14.6 % (11.5-14.5)
[2018-12-07] MEDS: PANTOPRAZOLE (EC) 40 MG TAB PO (06:26)
[2018-12-07] MEDS: DILTIAZEM 30 MG TAB PO ×3 (06:27→22:00)
[2018-12-07] MEDS: FUROSEMIDE 40 MG INJ IV ×2 (06:27→17:28)
[2018-12-07 06:44] LABS: ANION GAP 8 (5-13); BLOOD UREA NITROGEN 22 mg/dl (7-20); CALCIUM 9.3 mg/dl (8.4-10.2); CARBON DIOXIDE 31 mmol/L (21-31); CHLORIDE 98 mmol/L (97-110); CREATININE 1.15 mg/dl (0.61-1.24); GLUCOSE 114 mg/dl (70-220); POTASSIUM 3.6 mmol/L (3.5-5.1); SODIUM 137 mmol/L (135-144)
[2018-12-07] MEDS: DABIGATRAN 75 MG CAP PO ×2 (08:21→20:45)
[2018-12-07] MEDS: POTASSIUM CHLORIDE (SR) 20 MEQ TAB PO ×2 (08:21→20:45)
[2018-12-07] MEDS: LIDOCAINE 1% (MPF) 5 ML VIAL (16:00)
[2018-12-07 18:06] LABS: FLD MN% 55.7 %; FLD PMN% 44.3 %; FLD RBC 16000 /uL; FLD WBC 70 /cmm
[2018-12-07 18:28] LABS: FLUID LD 328 U/L
[2018-12-07 18:29] LABS: FLUID TOTAL PROTEIN < 2.0 g/dl; FLUID TYPE THORACENTESIS FLUID
[2018-12-07 18:33] LABS: FLD TYPE THORACENTHESIS
[2018-12-07 18:33] LABS: FLD CLARITY SLIGHTLY HAZY; FLD COLOR AMBER
[2018-12-08] MEDS: ALBUTEROL/IPRATROPIUM (NEB) 3 ML AMP HHN ×6 (01:02→20:50)
[2018-12-08] MEDS: DILTIAZEM 30 MG TAB PO ×4 (05:42→21:18)
[2018-12-08] MEDS: PANTOPRAZOLE (EC) 40 MG TAB PO (06:08)
[2018-12-08] MEDS: FUROSEMIDE 40 MG INJ IV ×2 (06:08→17:42)
[2018-12-08] MEDS: METOPROLOL 25 MG TAB PO ×2 (09:46→21:18)
[2018-12-08] MEDS: POTASSIUM CHLORIDE (SR) 20 MEQ TAB PO ×2 (09:46→21:17)
[2018-12-08] MEDS: DABIGATRAN 75 MG CAP PO ×2 (09:47→21:17)
[2018-12-08] MEDS: DOCUSATE SODIUM 100 MG CAP PO (13:02)
[2018-12-09] MEDS: ALBUTEROL/IPRATROPIUM (NEB) 3 ML AMP HHN ×6 (01:23→20:10)
[2018-12-09 05:40] LABS: ADD MAN DIFF? NO; BASOPHILS % 0.4 % (0.0-2.0); EOSINOPHILS # 0.1 10^3/ul (0.0-0.5); EOSINOPHILS % 1.1 % (0.0-7.0); HEMATOCRIT 36.2 % (42.0-52.0); HEMOGLOBIN 11.8 g/dl (14.0-18.0); LYMPHOCYTES # 1.8 10^3/ul (0.8-2.9); LYMPHOCYTES % 21.7 % (15.0-51.0); MEAN CORPUSCULAR HEMOGLOBIN 28.6 pg (29.0-33.0); MEAN CORPUSCULAR HGB CONC 32.6 g/dl (32.0-37.0); MEAN CORPUSCULAR VOLUME 87.7 fl (82.0-101.0); MEAN PLATELET VOLUME 9.1 fl (7.4-10.4); MONOCYTES % 11.7 % (0.0-11.0); NEUTROPHIL # 5.4 10^3/ul (1.6-7.5); NEUTROPHILS % 64.6 % (39.0-77.0); PLATELET COUNT 291 10^3/UL (140-415); RED BLOOD COUNT 4.13 10^6/ul (4.70-6.10); RED CELL DISTRIBUTION WIDTH 14.5 % (11.5-14.5)
[2018-12-09 05:40] LABS: WHITE BLOOD COUNT 8.4 10^3/ul (4.8-10.8)
[2018-12-09] MEDS: DILTIAZEM 30 MG TAB PO ×3 (06:00→21:27)
[2018-12-09 06:10] LABS: ANION GAP 7 (5-13); BLOOD UREA NITROGEN 22 mg/dl (7-20); CARBON DIOXIDE 30 mmol/L (21-31); CHLORIDE 98 mmol/L (97-110); GLUCOSE 113 mg/dl (70-220); SODIUM 135 mmol/L (135-144)
[2018-12-09] MEDS: PANTOPRAZOLE (EC) 40 MG TAB PO (06:16)
[2018-12-09] MEDS: FUROSEMIDE 40 MG INJ IV ×2 (06:17→17:40)
[2018-12-09 06:27] LABS: MAGNESIUM 1.7 mg/dl (1.7-2.5)
[2018-12-09] MEDS: METOPROLOL 25 MG TAB PO ×2 (09:17→21:28)
[2018-12-09] MEDS: DABIGATRAN 75 MG CAP PO (09:17)
[2018-12-09] MEDS: POTASSIUM CHLORIDE (SR) 20 MEQ TAB PO ×2 (09:17→21:28)
[2018-12-09 17:20] LABS: INR 1.38; PROTIME 17.1 Sec (11.9-14.9); PT RATIO 1.3
[2018-12-09 17:21] LABS: PARTIAL THROMBOPLASTIN TIME 51.2 Sec (23.0-35.0)
[2018-12-10] MEDS: ALBUTEROL/IPRATROPIUM (NEB) 3 ML AMP HHN ×6 (01:23→20:27)
[2018-12-10] MEDS: DILTIAZEM 30 MG TAB PO ×3 (06:00→22:28)
[2018-12-10 06:31] LABS: MAGNESIUM 1.7 mg/dl (1.7-2.5)
[2018-12-10] MEDS: PANTOPRAZOLE (EC) 40 MG TAB PO (06:36)
[2018-12-10] MEDS: FUROSEMIDE 40 MG INJ IV ×2 (06:36→17:33)
[2018-12-10 06:38] LABS: ANION GAP 8 (5-13); BLOOD UREA NITROGEN 24 mg/dl (7-20); CALCIUM 9.1 mg/dl (8.4-10.2); CARBON DIOXIDE 30 mmol/L (21-31); CHLORIDE 98 mmol/L (97-110); CREATININE 1.24 mg/dl (0.61-1.24); GLUCOSE 101 mg/dl (70-220); POTASSIUM 3.9 mmol/L (3.5-5.1); SODIUM 136 mmol/L (135-144)
[2018-12-10] MEDS: POTASSIUM CHLORIDE (SR) 20 MEQ TAB PO ×2 (08:21→20:40)
[2018-12-10] MEDS: METOPROLOL 25 MG TAB PO (08:22)
[2018-12-10] MEDS: LIDOCAINE 1% (MPF) 5 ML VIAL (12:19)
[2018-12-10 13:12] LABS: FLD MN% 92.1 %; FLD PMN% 7.9 %; FLD RBC 14000 /uL; FLD WBC 600 /cmm
[2018-12-10 13:39] LABS: FLD TYPE THORACENTHESIS
[2018-12-10 13:39] LABS: FLD CLARITY HAZY; FLD COLOR YELLOW; PATH REVIEW? YES
[2018-12-10 13:47] LABS: FLUID GLUCOSE 118 mg/dl; FLUID LD 463 U/L; FLUID TOTAL PROTEIN 3.3 g/dl; FLUID TYPE THORACENTESIS FLUID
[2018-12-10] MEDS ORDERED: METOPROLOL 5 MG INJ IV (14:30)
[2018-12-10] MEDS: DIGOXIN 500 MCG INJ IV ×2 (15:36→20:39)
[2018-12-10] MEDS: ATENOLOL 25 MG TAB PO (20:40)
[2018-12-11] MEDS: ALBUTEROL/IPRATROPIUM (NEB) 3 ML AMP HHN ×6 (00:29→20:21)
[2018-12-11 05:42] LABS: ADD MAN DIFF? NO
[2018-12-11 05:49] LABS: WHITE BLOOD COUNT 9.2 10^3/ul (4.8-10.8)
[2018-12-11 05:49] LABS: BASOPHILS % 0.3 % (0.0-2.0); EOSINOPHILS # 0.1 10^3/ul (0.0-0.5); HEMATOCRIT 40.3 % (42.0-52.0); HEMOGLOBIN 13.2 g/dl (14.0-18.0); LYMPHOCYTES # 1.6 10^3/ul (0.8-2.9); LYMPHOCYTES % 17.5 % (15.0-51.0); MEAN CORPUSCULAR HEMOGLOBIN 28.6 pg (29.0-33.0); MEAN CORPUSCULAR HGB CONC 32.8 g/dl (32.0-37.0); MEAN CORPUSCULAR VOLUME 87.2 fl (82.0-101.0); MEAN PLATELET VOLUME 9.2 fl (7.4-10.4); MONOCYTE # 1.3 10^3/ul (0.3-0.9); MONOCYTES % 14.1 % (0.0-11.0); NEUTROPHIL # 6.1 10^3/ul (1.6-7.5); NEUTROPHILS % 66.7 % (39.0-77.0); PLATELET COUNT 292 10^3/UL (140-415); RED BLOOD COUNT 4.62 10^6/ul (4.70-6.10); RED CELL DISTRIBUTION WIDTH 14.3 % (11.5-14.5)
[2018-12-11] MEDS: PANTOPRAZOLE (EC) 40 MG TAB PO (05:59)
[2018-12-11] MEDS: DILTIAZEM 30 MG TAB PO ×3 (05:59→22:12)
[2018-12-11] MEDS: FUROSEMIDE 40 MG INJ IV ×2 (06:00→17:52)
[2018-12-11 06:18] LABS: ANION GAP 8 (5-13); BLOOD UREA NITROGEN 26 mg/dl (7-20); CALCIUM 9.4 mg/dl (8.4-10.2); CARBON DIOXIDE 32 mmol/L (21-31); CHLORIDE 95 mmol/L (97-110); CREATININE 1.33 mg/dl (0.61-1.24); GLUCOSE 97 mg/dl (70-220); POTASSIUM 4.4 mmol/L (3.5-5.1); SODIUM 135 mmol/L (135-144)
[2018-12-11 06:21] LABS: PHOSPHORUS 3.9 mg/dl (2.5-4.9)
[2018-12-11 06:21] LABS: MAGNESIUM 1.7 mg/dl (1.7-2.5)
[2018-12-11] MEDS: DABIGATRAN 75 MG CAP PO ×2 (08:11→20:17)
[2018-12-11] MEDS: ATENOLOL 25 MG TAB PO ×3 (08:12→21:00)
[2018-12-11] MEDS: POTASSIUM CHLORIDE (SR) 20 MEQ TAB PO ×2 (08:13→20:17)
[2018-12-12] MEDS: ALBUTEROL/IPRATROPIUM (NEB) 3 ML AMP HHN ×6 (00:58→20:02)
[2018-12-12] MEDS: PANTOPRAZOLE (EC) 40 MG TAB PO (06:10)
[2018-12-12] MEDS: DILTIAZEM 30 MG TAB PO ×3 (06:11→21:33)
[2018-12-12] MEDS: FUROSEMIDE 40 MG INJ IV ×2 (06:12→17:03)
[2018-12-12] MEDS: DOCUSATE SODIUM 100 MG CAP PO (09:20)
[2018-12-12] MEDS: POTASSIUM CHLORIDE (SR) 20 MEQ TAB PO ×2 (09:20→21:36)
[2018-12-12] MEDS: DABIGATRAN 75 MG CAP PO ×2 (09:20→21:36)
[2018-12-12] MEDS: ATENOLOL 25 MG TAB PO ×2 (09:21→21:00)
[2018-12-13] MEDS: ALBUTEROL/IPRATROPIUM (NEB) 3 ML AMP HHN ×3 (00:09→09:11)
[2018-12-13] MEDS: PANTOPRAZOLE (EC) 40 MG TAB PO (05:15)
[2018-12-13] MEDS: FUROSEMIDE 40 MG INJ IV (05:15)
[2018-12-13] MEDS: DILTIAZEM 30 MG TAB PO (05:15)
[2018-12-13] MEDS: POTASSIUM CHLORIDE (SR) 20 MEQ TAB PO (08:49)
[2018-12-13] MEDS: DABIGATRAN 75 MG CAP PO (08:57)
[2018-12-13] MEDS: ATENOLOL 25 MG TAB PO (08:57)
== END 2018-12-13 13:34 | disposition home or self-care (01) | DRG 280 ==
LOC: E/R 08:54 → 6WM 11:40
PROC: 0W9B3ZZ Drainage of Left Pleural Cavity, Percutaneous Approach (ICD-10-PCS; principal; 2018-12-07)
PROC: 0W993ZZ Drainage of Right Pleural Cavity, Percutaneous Approach (ICD-10-PCS; 2018-12-10)
DX: I13.0 Hypertensive heart and chronic kidney disease with heart failure and stage 1 through stage 4 chronic kidney disease, or unspecified chronic kidney disease (principal); I21.A1 Myocardial infarction type 2; I50.33 Acute on chronic diastolic (congestive) heart failure; E87.1 Hypo-osmolality and hyponatremia; J90 Pleural effusion, not elsewhere classified; J93.9 Pneumothorax, unspecified; D63.1 Anemia in chronic kidney disease; D72.829 Elevated white blood cell count, unspecified; E78.5 Hyperlipidemia, unspecified; I42.9 Cardiomyopathy, unspecified; I73.9 Peripheral vascular disease, unspecified; I25.10 Atherosclerotic heart disease of native coronary artery without angina pectoris; I48.2 Chronic atrial fibrillation; J44.9 Chronic obstructive pulmonary disease, unspecified; N18.9 Chronic kidney disease, unspecified; Z85.118 Personal history of other malignant neoplasm of bronchus and lung; Z92.3 Personal history of irradiation; Z87.891 Personal history of nicotine dependence; Z79.02 Long term (current) use of antithrombotics/antiplatelets
CPT/HCPCS: 36415; 36600; 71045; 71046; 71250; 76942; 80048; 80053; 80162; 81001; 81003; 82550; 82553; 82803; 82945; 82962; 83036; 83615; 83735; 83880; 84100; 84157; 84443; 84484; 85025; 85610; 85730; 87040-91; 87070; 87102; 87116; 88104; 88107; 88305; 89051; 93005; 93306; 94640; 94664; 97162; 99285-25

== ENCOUNTER 2019-01-06 09:11 | Inpatient (IN) | payer BC ==
[2019-01-06 09:49] LABS: ADD MAN DIFF? NO
[2019-01-06] MEDS: ASPIRIN 81 MG TAB PO (09:57)
[2019-01-06] MEDS: FUROSEMIDE 40 MG INJ IV ×2 (09:57→23:06)
[2019-01-06 09:58] LABS: WHITE BLOOD COUNT 7.7 10^3/ul (4.8-10.8)
[2019-01-06 09:58] LABS: BASOPHIL # 0.1 10^3/ul (0.0-0.1); BASOPHILS % 0.8 % (0.0-2.0); EOSINOPHILS # 0.1 10^3/ul (0.0-0.5); EOSINOPHILS % 1.7 % (0.0-7.0); HEMATOCRIT 30.3 % (42.0-52.0); HEMOGLOBIN 9.9 g/dl (14.0-18.0); LYMPHOCYTES # 1.1 10^3/ul (0.8-2.9); LYMPHOCYTES % 14.7 % (15.0-51.0); MEAN CORPUSCULAR HEMOGLOBIN 28.6 pg (29.0-33.0); MEAN CORPUSCULAR HGB CONC 32.7 g/dl (32.0-37.0); MEAN CORPUSCULAR VOLUME 87.6 fl (82.0-101.0); MEAN PLATELET VOLUME 8.7 fl (7.4-10.4); MONOCYTE # 1.4 10^3/ul (0.3-0.9); MONOCYTES % 17.7 % (0.0-11.0); NEUTROPHILS % 64.7 % (39.0-77.0); PLATELET COUNT 317 10^3/UL (140-415); RED BLOOD COUNT 3.46 10^6/ul (4.70-6.10); RED CELL DISTRIBUTION WIDTH 14.8 % (11.5-14.5)
[2019-01-06] MEDS: NITROGLYCERIN 2% 1 GM OINT PKT TD (09:58)
[2019-01-06] MEDS ORDERED: NITROGLYCERIN (SL) 0.4 MG TAB SL (10:00)
[2019-01-06 10:09] LABS: ANION GAP 7 (5-13); BLOOD UREA NITROGEN 18 mg/dl (7-20); CARBON DIOXIDE 29 mmol/L (21-31); CHLORIDE 98 mmol/L (97-110); CREATININE 1.37 mg/dl (0.61-1.24); GLUCOSE 106 mg/dl (70-220); SODIUM 134 mmol/L (135-144)
[2019-01-06 10:20] LABS: TROPONIN-I 0.038 ng/ml (0.000-0.120)
[2019-01-06] MEDS ORDERED: ACETAMINOPHEN 325 MG TAB PO ×2 (11:00→17:00)
[2019-01-06] MEDS ORDERED: ONDANSETRON 4 MG INJ IV ×2 (11:00→17:00)
[2019-01-06] MEDS: CEFEPIME 1GM/50 ML (PMX) 50 ML IVPB ×2 (11:30→23:04)
[2019-01-06] MEDS: VANCOMYCIN 1 GM (PMX) 250 ML IVPB (12:36)
[2019-01-06] MEDS ORDERED: ALBUTEROL/IPRATROPIUM (NEB) 3 ML AMP (17:00)
[2019-01-06] MEDS ORDERED: VANCOMYCIN IV PER PHARMACY XX (17:00)
[2019-01-06 17:11] LABS: CREATINE KINASE 25 IU/L (23-200)
[2019-01-06 17:24] LABS: CK INDEX 5.9; CK-MB 1.48 ng/ml (0.0-2.4); TROPONIN-I 0.028 ng/ml (0.000-0.120)
[2019-01-06] MEDS: ALBUTEROL/IPRATROPIUM (NEB) 3 ML AMP HHN (20:00)
[2019-01-06 22:16] LABS: CREATINE KINASE 22 IU/L (23-200)
[2019-01-06 22:27] LABS: CK INDEX 7.2; CK-MB 1.58 ng/ml (0.0-2.4); TROPONIN-I 0.033 ng/ml (0.000-0.120)
[2019-01-06] MEDS: DILTIAZEM 30 MG TAB PO (23:05)
[2019-01-06] MEDS: ATENOLOL 25 MG TAB PO (23:06)
[2019-01-07] MEDS: DABIGATRAN 75 MG CAP PO ×2 (00:08→08:27)
[2019-01-07] MEDS: ALBUTEROL/IPRATROPIUM (NEB) 3 ML AMP HHN ×4 (02:09→19:30)
[2019-01-07] MEDS: FUROSEMIDE 40 MG INJ IV ×2 (05:21→17:23)
[2019-01-07] MEDS: DILTIAZEM 30 MG TAB PO ×3 (05:21→21:43)
[2019-01-07] MEDS: PANTOPRAZOLE (EC) 40 MG TAB PO (05:21)
[2019-01-07] MEDS: DOCUSATE SODIUM 100 MG CAP PO (08:27)
[2019-01-07] MEDS: ASPIRIN (EC) 81 MG TAB PO (08:27)
[2019-01-07] MEDS: CEFEPIME 1GM/50 ML (PMX) 50 ML IVPB (08:27)
[2019-01-07] MEDS: VANCOMYCIN HCL 1.25 GM in SOD CHLORIDE 0.9% 250 ML IVPB (08:28)
[2019-01-07] MEDS: ATENOLOL 25 MG TAB PO ×2 (08:30→21:00)
[2019-01-07 08:42] LABS: ADD MAN DIFF? NO
[2019-01-07 08:46] LABS: WHITE BLOOD COUNT 9.7 10^3/ul (4.8-10.8)
[2019-01-07 08:46] LABS: BASOPHILS % 0.4 % (0.0-2.0); EOSINOPHILS # 0.4 10^3/ul (0.0-0.5); EOSINOPHILS % 4.6 % (0.0-7.0); HEMATOCRIT 34.6 % (42.0-52.0); HEMOGLOBIN 11.2 g/dl (14.0-18.0); LYMPHOCYTES # 0.9 10^3/ul (0.8-2.9); LYMPHOCYTES % 9.1 % (15.0-51.0); MEAN CORPUSCULAR HEMOGLOBIN 28.5 pg (29.0-33.0); MEAN CORPUSCULAR HGB CONC 32.4 g/dl (32.0-37.0); MEAN PLATELET VOLUME 9.1 fl (7.4-10.4); MONOCYTE # 1.3 10^3/ul (0.3-0.9); MONOCYTES % 13.8 % (0.0-11.0); NEUTROPHIL # 6.9 10^3/ul (1.6-7.5); NEUTROPHILS % 71.6 % (39.0-77.0); PLATELET COUNT 367 10^3/UL (140-415); RED BLOOD COUNT 3.93 10^6/ul (4.70-6.10); RED CELL DISTRIBUTION WIDTH 14.4 % (11.5-14.5)
[2019-01-07 09:04] LABS: ANION GAP 10 (5-13); BLOOD UREA NITROGEN 18 mg/dl (7-20); CARBON DIOXIDE 28 mmol/L (21-31); CHLORIDE 97 mmol/L (97-110); CREATININE 1.21 mg/dl (0.61-1.24); GLUCOSE 111 mg/dl (70-220); POTASSIUM 3.3 mmol/L (3.5-5.1); SODIUM 135 mmol/L (135-144)
[2019-01-07] MEDS: POTASSIUM CHLORIDE (SR) 20 MEQ TAB PO (11:56)
[2019-01-07] MEDS: DIGOXIN 0.125 MG TAB PO (13:42)
[2019-01-07 15:33] LABS: INR 1.46; PROTIME 17.8 Sec (11.9-14.9); PT RATIO 1.4
[2019-01-07 16:41] LABS: INR 1.45; PROTIME 17.7 Sec (11.9-14.9); PT RATIO 1.4
[2019-01-07 16:42] LABS: PARTIAL THROMBOPLASTIN TIME 59.8 Sec (23.0-35.0)
[2019-01-07] MEDS: BISACODYL (EC) 5 MG TAB PO (21:52)
[2019-01-08] MEDS: ALBUTEROL/IPRATROPIUM (NEB) 3 ML AMP HHN ×4 (02:21→20:56)
[2019-01-08] MEDS: DILTIAZEM 30 MG TAB PO ×3 (05:10→21:03)
[2019-01-08] MEDS: FUROSEMIDE 40 MG INJ IV ×2 (05:10→17:49)
[2019-01-08] MEDS: PANTOPRAZOLE (EC) 40 MG TAB PO (05:10)
[2019-01-08 07:02] LABS: ANION GAP 8 (5-13); BLOOD UREA NITROGEN 19 mg/dl (7-20); CALCIUM 8.6 mg/dl (8.4-10.2); CARBON DIOXIDE 30 mmol/L (21-31); CHLORIDE 96 mmol/L (97-110); CREATININE 1.12 mg/dl (0.61-1.24); GLUCOSE 108 mg/dl (70-220); POTASSIUM 3.6 mmol/L (3.5-5.1); SODIUM 134 mmol/L (135-144)
[2019-01-08] MEDS: ASPIRIN (EC) 81 MG TAB PO (08:21)
[2019-01-08] MEDS: ATENOLOL 25 MG TAB PO ×2 (08:22→21:04)
[2019-01-08 12:07] LABS: INR 1.31; PROTIME 16.4 Sec (11.9-14.9); PT RATIO 1.3
[2019-01-08 12:08] LABS: PARTIAL THROMBOPLASTIN TIME 50.5 Sec (23.0-35.0)
[2019-01-08] MEDS: LIDOCAINE 1% (MPF) 5 ML VIAL (13:38)
[2019-01-08] MEDS: DIGOXIN 0.125 MG TAB PO (14:37)
[2019-01-08 17:22] LABS: FLUID TOTAL PROTEIN 3.1 g/dl
[2019-01-08] MEDS: BISACODYL (EC) 5 MG TAB PO (21:02)
[2019-01-08] MEDS: DABIGATRAN 75 MG CAP PO (21:03)
[2019-01-09] MEDS: ALBUTEROL/IPRATROPIUM (NEB) 3 ML AMP HHN ×4 (01:35→19:20)
[2019-01-09] MEDS: FUROSEMIDE 40 MG INJ IV ×2 (06:18→18:42)
[2019-01-09] MEDS: PANTOPRAZOLE (EC) 40 MG TAB PO (06:18)
[2019-01-09] MEDS: DILTIAZEM 30 MG TAB PO ×3 (06:19→21:29)
[2019-01-09] MEDS: DABIGATRAN 75 MG CAP PO ×2 (08:23→21:28)
[2019-01-09] MEDS: ATENOLOL 25 MG TAB PO ×2 (08:25→21:29)
[2019-01-09] MEDS: ASPIRIN (EC) 81 MG TAB PO (08:25)
[2019-01-09] MEDS: MUPIROCIN 2% 22 GM OINT TOP ×2 (12:26→21:29)
[2019-01-09] MEDS: DIGOXIN 0.125 MG TAB PO (14:03)
[2019-01-09] MEDS: DOCUSATE SODIUM 100 MG CAP PO (21:33)
[2019-01-10] MEDS: ALBUTEROL/IPRATROPIUM (NEB) 3 ML AMP HHN ×4 (01:41→20:42)
[2019-01-10] MEDS: PANTOPRAZOLE (EC) 40 MG TAB PO (06:17)
[2019-01-10] MEDS: FUROSEMIDE 40 MG INJ IV (06:18)
[2019-01-10 06:21] LABS: ADD MAN DIFF? NO
[2019-01-10] MEDS: DILTIAZEM 30 MG TAB PO ×3 (06:21→21:30)
[2019-01-10 06:22] LABS: BASOPHIL # 0.1 10^3/ul (0.0-0.1); BASOPHILS % 0.7 % (0.0-2.0); EOSINOPHILS # 0.7 10^3/ul (0.0-0.5); EOSINOPHILS % 7.7 % (0.0-7.0); HEMATOCRIT 33.4 % (42.0-52.0); HEMOGLOBIN 11.1 g/dl (14.0-18.0); LYMPHOCYTES # 1.4 10^3/ul (0.8-2.9); LYMPHOCYTES % 15.7 % (15.0-51.0); MEAN CORPUSCULAR HEMOGLOBIN 28.8 pg (29.0-33.0); MEAN CORPUSCULAR HGB CONC 33.2 g/dl (32.0-37.0); MEAN CORPUSCULAR VOLUME 86.8 fl (82.0-101.0); MONOCYTE # 1.4 10^3/ul (0.3-0.9); MONOCYTES % 16.5 % (0.0-11.0); NEUTROPHIL # 5.2 10^3/ul (1.6-7.5); NEUTROPHILS % 58.9 % (39.0-77.0); PLATELET COUNT 398 10^3/UL (140-415); RED BLOOD COUNT 3.85 10^6/ul (4.70-6.10); RED CELL DISTRIBUTION WIDTH 14.3 % (11.5-14.5)
[2019-01-10 06:22] LABS: WHITE BLOOD COUNT 8.8 10^3/ul (4.8-10.8)
[2019-01-10 06:51] LABS: ANION GAP 8 (5-13); BLOOD UREA NITROGEN 20 mg/dl (7-20); CALCIUM 8.8 mg/dl (8.4-10.2); CARBON DIOXIDE 32 mmol/L (21-31); CHLORIDE 92 mmol/L (97-110); CREATININE 1.27 mg/dl (0.61-1.24); GLUCOSE 110 mg/dl (70-220); POTASSIUM 3.3 mmol/L (3.5-5.1); SODIUM 132 mmol/L (135-144)
[2019-01-10] MEDS: DABIGATRAN 75 MG CAP PO ×2 (08:52→21:30)
[2019-01-10] MEDS: ASPIRIN (EC) 81 MG TAB PO (08:52)
[2019-01-10] MEDS: ATENOLOL 25 MG TAB PO ×2 (08:55→21:30)
[2019-01-10] MEDS: MUPIROCIN 2% 22 GM OINT TOP ×2 (08:58→21:30)
[2019-01-10] MEDS: POTASSIUM CHLORIDE 20 MEQ POWDER FOR ORAL SOLN PO (11:21)
[2019-01-10] MEDS: DIGOXIN 0.125 MG TAB PO (14:23)
[2019-01-11] MEDS: ALBUTEROL/IPRATROPIUM (NEB) 3 ML AMP HHN ×4 (01:25→21:18)
[2019-01-11] MEDS: DILTIAZEM 30 MG TAB PO ×3 (05:19→21:30)
[2019-01-11] MEDS: PANTOPRAZOLE (EC) 40 MG TAB PO (05:19)
[2019-01-11] MEDS: ASPIRIN (EC) 81 MG TAB PO (08:46)
[2019-01-11] MEDS: ATENOLOL 25 MG TAB PO ×2 (08:47→20:32)
[2019-01-11] MEDS: DABIGATRAN 75 MG CAP PO ×2 (08:47→20:32)
[2019-01-11] MEDS: MUPIROCIN 2% 22 GM OINT TOP ×2 (08:47→20:36)
[2019-01-11] MEDS: DOCUSATE SODIUM 100 MG CAP PO (08:57)
[2019-01-11] MEDS: DIGOXIN 0.125 MG TAB PO (14:08)
[2019-01-12] MEDS: ALBUTEROL/IPRATROPIUM (NEB) 3 ML AMP HHN ×4 (01:03→20:19)
[2019-01-12 05:13] LABS: ADD MAN DIFF? NO
[2019-01-12 05:23] LABS: WHITE BLOOD COUNT 10.1 10^3/ul (4.8-10.8)
[2019-01-12 05:23] LABS: BASOPHIL # 0.1 10^3/ul (0.0-0.1); BASOPHILS % 0.6 % (0.0-2.0); EOSINOPHILS # 0.5 10^3/ul (0.0-0.5); HEMOGLOBIN 10.2 g/dl (14.0-18.0); LYMPHOCYTES # 1.7 10^3/ul (0.8-2.9); LYMPHOCYTES % 16.4 % (15.0-51.0); MEAN CORPUSCULAR HEMOGLOBIN 28.1 pg (29.0-33.0); MEAN CORPUSCULAR HGB CONC 32.9 g/dl (32.0-37.0); MEAN CORPUSCULAR VOLUME 85.4 fl (82.0-101.0); MONOCYTE # 1.5 10^3/ul (0.3-0.9); MONOCYTES % 14.9 % (0.0-11.0); NEUTROPHIL # 6.3 10^3/ul (1.6-7.5); NEUTROPHILS % 62.6 % (39.0-77.0); PLATELET COUNT 446 10^3/UL (140-415); RED BLOOD COUNT 3.63 10^6/ul (4.70-6.10); RED CELL DISTRIBUTION WIDTH 14.2 % (11.5-14.5)
[2019-01-12] MEDS: DILTIAZEM 30 MG TAB PO ×3 (05:37→21:07)
[2019-01-12] MEDS: PANTOPRAZOLE (EC) 40 MG TAB PO (05:37)
[2019-01-12] MEDS: DOCUSATE SODIUM 100 MG CAP PO (05:44)
[2019-01-12 06:00] LABS: ANION GAP 7 (5-13); BLOOD UREA NITROGEN 20 mg/dl (7-20); CALCIUM 8.7 mg/dl (8.4-10.2); CARBON DIOXIDE 30 mmol/L (21-31); CHLORIDE 94 mmol/L (97-110); CREATININE 1.09 mg/dl (0.61-1.24); GLUCOSE 110 mg/dl (70-220); POTASSIUM 3.8 mmol/L (3.5-5.1); SODIUM 131 mmol/L (135-144)
[2019-01-12] MEDS: ATENOLOL 25 MG TAB PO ×2 (09:16→21:08)
[2019-01-12] MEDS: ASPIRIN (EC) 81 MG TAB PO (09:16)
[2019-01-12] MEDS: DABIGATRAN 75 MG CAP PO ×2 (09:16→21:07)
[2019-01-12] MEDS: MUPIROCIN 2% 22 GM OINT TOP ×2 (09:16→22:53)
[2019-01-12] MEDS: DIGOXIN 0.125 MG TAB PO (13:35)
[2019-01-13] MEDS: ALBUTEROL/IPRATROPIUM (NEB) 3 ML AMP HHN ×4 (01:52→19:39)
[2019-01-13] MEDS: PANTOPRAZOLE (EC) 40 MG TAB PO (05:39)
[2019-01-13] MEDS: DILTIAZEM 30 MG TAB PO ×3 (05:39→21:22)
[2019-01-13] MEDS: DABIGATRAN 75 MG CAP PO ×2 (09:19→21:20)
[2019-01-13] MEDS: ASPIRIN (EC) 81 MG TAB PO (09:19)
[2019-01-13] MEDS: ATENOLOL 25 MG TAB PO ×2 (09:19→21:21)
[2019-01-13] MEDS: MUPIROCIN 2% 22 GM OINT TOP ×2 (09:19→21:22)
[2019-01-13] MEDS: DOCUSATE SODIUM 100 MG CAP PO (13:01)
[2019-01-13] MEDS: DIGOXIN 0.125 MG TAB PO (13:01)
[2019-01-13] MEDS: BISACODYL (EC) 5 MG TAB PO (13:01)
[2019-01-14] MEDS: ALBUTEROL/IPRATROPIUM (NEB) 3 ML AMP HHN ×2 (02:00→07:56)
[2019-01-14] MEDS: PANTOPRAZOLE (EC) 40 MG TAB PO (05:05)
[2019-01-14] MEDS: DILTIAZEM 30 MG TAB PO ×2 (05:06→13:06)
[2019-01-14] MEDS: ATENOLOL 25 MG TAB PO (09:54)
[2019-01-14] MEDS: DABIGATRAN 75 MG CAP PO (09:54)
[2019-01-14] MEDS: ASPIRIN (EC) 81 MG TAB PO (09:54)
[2019-01-14] MEDS: MUPIROCIN 2% 22 GM OINT TOP (09:54)
[2019-01-14] MEDS: DOCUSATE SODIUM 100 MG CAP PO (12:29)
[2019-01-14] MEDS: DIGOXIN 0.125 MG TAB PO (12:44)
[2019-01-15] MEDS ORDERED: FUROSEMIDE 20 MG TAB PO (06:00)
== END 2019-01-14 14:55 | DRG 291 ==
LOC: 2NE 01-10 18:26 → TEL 01-08 16:14 → E/R 09:11 → TEL 10:41
PROC: 0W993ZZ Drainage of Right Pleural Cavity, Percutaneous Approach (ICD-10-PCS; principal; 2019-01-08)
DX: I13.0 Hypertensive heart and chronic kidney disease with heart failure and stage 1 through stage 4 chronic kidney disease, or unspecified chronic kidney disease (principal); J18.9 Pneumonia, unspecified organism; I50.33 Acute on chronic diastolic (congestive) heart failure; J90 Pleural effusion, not elsewhere classified; I48.2 Chronic atrial fibrillation; N18.3 Chronic kidney disease, stage 3 (moderate); Z85.118 Personal history of other malignant neoplasm of bronchus and lung; Z87.891 Personal history of nicotine dependence; E78.5 Hyperlipidemia, unspecified; D64.9 Anemia, unspecified; J44.9 Chronic obstructive pulmonary disease, unspecified
CPT/HCPCS: 36415; 71045; 76604; 76942; 80048; 82550; 82553; 83605; 84157; 84484; 85025; 85610; 85730; 87040-91; 87070; 87081; 87102; 87116; 93005; 94640; 94664; 97116; 97162; 97530; 99285-25

== ENCOUNTER 2019-01-22 15:58 | Inpatient (IN) | payer BC ==
[2019-01-22 16:39] LABS: ABNORMAL IP MESSAGE 1; HEMOGLOBIN 10.1 g/dl (14.0-18.0); MEAN CORPUSCULAR HEMOGLOBIN 28.2 pg (29.0-33.0); MEAN CORPUSCULAR HGB CONC 32.6 g/dl (32.0-37.0); MEAN CORPUSCULAR VOLUME 86.6 fl (82.0-101.0); MEAN PLATELET VOLUME 8.9 fl (7.4-10.4); PLATELET COUNT 606 10^3/UL (140-415); POSITIVE DIFF @See below; RED BLOOD COUNT 3.58 10^6/ul (4.70-6.10); RED CELL DISTRIBUTION WIDTH 14.4 % (11.5-14.5)
[2019-01-22 16:39] LABS: WHITE BLOOD COUNT 29.4 10^3/ul (4.8-10.8)
[2019-01-22 16:44] LABS: ADD MAN DIFF? YES
[2019-01-22 17:02] LABS: ANION GAP 13 (5-13); BLOOD UREA NITROGEN 26 mg/dl (7-20); CALCIUM 9.2 mg/dl (8.4-10.2); CARBON DIOXIDE 25 mmol/L (21-31); CHLORIDE 95 mmol/L (97-110); CREATININE 1.22 mg/dl (0.61-1.24); GLUCOSE 153 mg/dl (70-220); POTASSIUM 4.5 mmol/L (3.5-5.1); SODIUM 133 mmol/L (135-144)
[2019-01-22] MEDS: FUROSEMIDE 40 MG INJ IV (17:03)
[2019-01-22 17:04] LABS: DIGOXIN 0.7 ng/ml (1.0-2.0)
[2019-01-22] MEDS: DILTIAZEM 25 MG INJ IV ×2 (17:05→18:14)
[2019-01-22 17:13] LABS: B-TYPE NATRIURETIC PEPTIDE 22400 PG/ML (0-450); TROPONIN-I 0.047 ng/ml (0.000-0.120)
[2019-01-22 17:17] LABS: INR 2.07; PROTIME 23.4 Sec (11.9-14.9); PT RATIO 1.8
[2019-01-22 17:18] LABS: PARTIAL THROMBOPLASTIN TIME 52.3 Sec (23.0-35.0)
[2019-01-22 17:41] LABS: BAND NEUTROPHILS #M 2.3 10^3/ul (0.0-0.6); BAND NEUTROPHILS % (M) 8 % (0-4); LYMPHOCYTES #M 0.8 10^3/ul (0.8-2.9); LYMPHOCYTES % (M) 3 % (15-51); MONOCYTE #M 1.4 10^3/ul (0.3-0.9); MONOCYTES % (M) 5 % (0-11); PLATELET ESTIMATE INCREASED; POIKILOCYTOSIS 2+ (0-0); POLYCHROMASIA 2+ (0-0); SEG NEUT #M 25.4 10^3/ul (1.6-7.5); SEGMENTED NEUTROPHILS (M) % 84 % (39-77); SMUDGE%M 1 % (0-0)
[2019-01-22] MEDS: PIPER-TAZO 3.375 GM IV (PMX) 100 ML IVPB (18:04)
[2019-01-22] MEDS: DIGOXIN 500 MCG INJ IV ×2 (18:14→23:55)
[2019-01-22 18:28] LABS: AADO2 Arterial 219.4 mmHg (7.0-24.0); Allen Test ACCEPTAB; Arterial Base Excess 0 mmol/L (-3.0-3); Arterial Blood Gas Oxygen Sat 93.1 mmHG (95.0-100.0); Arterial COHb 0.2 % (0.0-3.0); Arterial Fraction of Oxyhgb 92.7 % (93.0-99.0); Arterial HCO3 26.8 mmol/L (22.0-26.0); Arterial MetHb 0.2 % (0.0-1.5); Arterial pCO2 53.9 mmhg (35-45); Blood Gas IEPAP 15/5; Blood Gas PS 10; MODE MASK - BIPAP; Site Right Radial
[2019-01-22] MEDS: DILTIAZEM-D5W 125MG/125ML DRIP 125 ML IV (18:36)
[2019-01-22] MEDS: VANCOMYCIN 1 GM (PMX) 250 ML IVPB (18:48)
[2019-01-22] MEDS ORDERED: ACETAMINOPHEN 325 MG TAB PO (19:00)
[2019-01-22] MEDS ORDERED: ONDANSETRON 4 MG INJ IV (19:00)
[2019-01-22 19:45] LABS: LACTIC ACID 1.7 mmol/L (0.5-2.0)
[2019-01-22 20:58] LABS: LACTIC ACID 1.8 mmol/L (0.5-2.0)
[2019-01-22] MEDS: APIXABAN 5 MG TABLET PO (21:39)
[2019-01-22] MEDS: DILTIAZEM 30 MG TAB PO (21:47)
[2019-01-23] MEDS: LORAZEPAM 2 MG INJ IV (00:55)
[2019-01-23 01:26] LABS: TROPONIN-I 0.084 ng/ml (0.000-0.120)
[2019-01-23] MEDS ORDERED: DOCUSATE SODIUM 100 MG CAP PO (02:00)
[2019-01-23 05:45] LABS: ABNORMAL IP MESSAGE 1; HEMATOCRIT 32.1 % (42.0-52.0); HEMOGLOBIN 10.1 g/dl (14.0-18.0); MEAN CORPUSCULAR HEMOGLOBIN 27.9 pg (29.0-33.0); MEAN CORPUSCULAR HGB CONC 31.5 g/dl (32.0-37.0); MEAN CORPUSCULAR VOLUME 88.7 fl (82.0-101.0); PLATELET COUNT 693 10^3/UL (140-415); POSITIVE DIFF @See below; RED BLOOD COUNT 3.62 10^6/ul (4.70-6.10); RED CELL DISTRIBUTION WIDTH 14.6 % (11.5-14.5)
[2019-01-23 05:45] LABS: WHITE BLOOD COUNT 39.1 10^3/ul (4.8-10.8)
[2019-01-23 05:56] LABS: ADD MAN DIFF? YES
[2019-01-23] MEDS: PANTOPRAZOLE (EC) 40 MG TAB PO ×2 (06:00→06:24)
[2019-01-23] MEDS: DILTIAZEM 30 MG TAB PO ×3 (06:00→14:00)
[2019-01-23 06:16] LABS: TROPONIN-I 0.077 ng/ml (0.000-0.120)
[2019-01-23] MEDS: FUROSEMIDE 40 MG INJ IV ×2 (06:23→18:24)
[2019-01-23 06:26] LABS: ANION GAP 13 (5-13); BLOOD UREA NITROGEN 33 mg/dl (7-20); CALCIUM 9.3 mg/dl (8.4-10.2); CARBON DIOXIDE 27 mmol/L (21-31); CHLORIDE 98 mmol/L (97-110); CREATININE 1.61 mg/dl (0.61-1.24); GLUCOSE 113 mg/dl (70-220); POTASSIUM 5.2 mmol/L (3.5-5.1); SODIUM 138 mmol/L (135-144)
[2019-01-23] MEDS: DILTIAZEM-D5W 125MG/125ML DRIP 125 ML IV (08:15)
[2019-01-23] MEDS: ATENOLOL 25 MG TAB PO (09:00)
[2019-01-23] MEDS: APIXABAN 5 MG TABLET PO (09:00)
[2019-01-23] MEDS: FERROUS SULFATE (EC) 325 MG TAB PO (09:00)
[2019-01-23] MEDS: POTASSIUM CHLORIDE (SR) 20 MEQ TAB PO (09:00)
[2019-01-23] MEDS ORDERED: ENOXAPARIN 40 MG/0.4 ML SYG SC (09:00)
[2019-01-23 10:31] LABS: ANISOCYTOSIS 1+ (0-0); BAND NEUTROPHILS #M 12.1 10^3/ul (0.0-0.6); BAND NEUTROPHILS % (M) 31 % (0-4); BURR CELLS 1+ (0-0); GIANT THROMBO% (M) 4 % (0-0); LYMPHOCYTES #M 0.7 10^3/ul (0.8-2.9); LYMPHOCYTES % (M) 2 % (15-51); MONOCYTE #M 3.5 10^3/ul (0.3-0.9); MONOCYTES % (M) 9 % (0-11); OVALOCYTES 1+ (0-0); PLATELET ESTIMATE INCREASED; POIKILOCYTOSIS 3+ (0-0); POLYCHROMASIA 1+ (0-0); SEG NEUT #M 27.4 10^3/ul (1.6-7.5); SEGMENTED NEUTROPHILS (M) % 58 % (39-77); SMUDGE%M 7 % (0-0)
[2019-01-23] MEDS ORDERED: VANCOMYCIN IV PER PHARMACY XX (12:00)
[2019-01-23] MEDS ORDERED: DIGOXIN 0.125 MG TAB PO (13:00)
[2019-01-23] MEDS: SOD CHLORIDE 0.9% 2,070 ML IV (13:09)
[2019-01-23] MEDS: PROPOFOL 100 ML IV ×2 (13:09→21:25)
[2019-01-23] MEDS ORDERED: NORepinephrine 8MG/250 ML (PMX 250 ML (13:33)
[2019-01-23 13:46] LABS: AADO2 Arterial 401.7 mmHg (7.0-24.0); Arterial Base Excess -2.7 mmol/L (-3.0-3); Arterial Blood Gas Oxygen Sat 99.8 mmHG (95.0-100.0); Arterial COHb 0.4 % (0.0-3.0); Arterial HCO3 24.5 mmol/L (22.0-26.0); Arterial MetHb 0.4 % (0.0-1.5); Arterial pCO2 54.5 mmhg (35-45); MODE VENT - AC; Site Right Brachial
[2019-01-23] MEDS: NORepinephrine 8MG/250 ML (PMX 250 ML IV (13:48)
[2019-01-23 14:37] LABS: LACTIC ACID 2.2 mmol/L (0.5-2.0)
[2019-01-23] MEDS: CEFEPIME 1GM/50 ML (PMX) 50 ML IVPB ×2 (16:32→21:25)
[2019-01-23] MEDS: DIGOXIN 0.125 MG TAB NGT (16:32)
[2019-01-23] MEDS: METHYLPREDNISOLONE 40 MG INJ IV ×2 (16:32→21:25)
[2019-01-23 17:09] LABS: LACTIC ACID 2.7 mmol/L (0.5-2.0)
[2019-01-23 17:57] LABS: ADD UMIC YES; UR ASCORBIC ACID NEGATIVE (NEGATIVE); UR BACTERIA FEW /HPF (NONE SEEN); UR BILIRUBIN (Dip) NEGATIVE (NEGATIVE); UR BLOOD (Dip) 1+ mg/dL (NEGATIVE); UR CLARITY CLOUDY (CLEAR); UR COLOR YELLOW (YELLOW); UR GLUCOSE (Dip) NEGATIVE (NEGATIVE); UR KETONES (Dip) NEGATIVE (NEGATIVE); UR LEUKOCYTE ESTERASE (Dip) NEGATIVE Leu/ul (NEGATIVE); UR NITRITE (Dip) NEGATIVE (NEGATIVE); UR RBC 1 /HPF (0-5); UR SPECIFIC GRAVITY (Dip) 1.013 (1.003-1.030); UR TOTAL PROTEIN (Dip) NEGATIVE (NEGATIVE); UR UROBILINOGEN (Dip) NEGATIVE (NEGATIVE); UR WBC 2 /HPF (0-5)
[2019-01-23] MEDS: VANCOMYCIN 750 MG (PMX) 250 ML IVPB (18:24)
[2019-01-23] MEDS: APIXABAN 5 MG TABLET NGT (23:36)
[2019-01-23] MEDS: ATENOLOL 25 MG TAB NGT (23:37)
[2019-01-23] MEDS: DOCUSATE SODIUM 10 MG/ML (10ML CUP) NGT (23:46)
[2019-01-24] MEDS: PROPOFOL 100 ML IV ×2 (02:48→16:25)
[2019-01-24] MEDS: DILTIAZEM-D5W 125MG/125ML DRIP 125 ML IV ×2 (03:20→08:00)
[2019-01-24] MEDS: LANSOPRAZOLE 30 MG CAP NGT (05:36)
[2019-01-24] MEDS: FUROSEMIDE 40 MG INJ IV (05:36)
[2019-01-24] MEDS: METHYLPREDNISOLONE 40 MG INJ IV ×3 (05:36→21:47)
[2019-01-24 05:43] LABS: AADO2 Arterial 150.9 mmHg (7.0-24.0); Allen Test ACCEPTAB; Arterial Base Excess -3.7 mmol/L (-3.0-3); Arterial Blood Gas Oxygen Sat 97.4 mmHG (95.0-100.0); Arterial COHb 0.1 % (0.0-3.0); Arterial HCO3 19.8 mmol/L (22.0-26.0); Arterial MetHb 0.3 % (0.0-1.5); Arterial pCO2 30.1 mmhg (35-45); MODE VENT - AC; Site Right Radial
[2019-01-24 05:46] LABS: WHITE BLOOD COUNT 24.5 10^3/ul (4.8-10.8)
[2019-01-24 05:46] LABS: ABNORMAL IP MESSAGE 1; HEMATOCRIT 26.3 % (42.0-52.0); HEMOGLOBIN 8.6 g/dl (14.0-18.0); MEAN CORPUSCULAR HEMOGLOBIN 28.1 pg (29.0-33.0); MEAN CORPUSCULAR HGB CONC 32.7 g/dl (32.0-37.0); MEAN CORPUSCULAR VOLUME 85.9 fl (82.0-101.0); MEAN PLATELET VOLUME 9.3 fl (7.4-10.4); PLATELET COUNT 536 10^3/UL (140-415); POSITIVE DIFF @See below; RED BLOOD COUNT 3.06 10^6/ul (4.70-6.10); RED CELL DISTRIBUTION WIDTH 14.9 % (11.5-14.5)
[2019-01-24] MEDS: NORepinephrine 8MG/250 ML (PMX 250 ML IV (05:50)
[2019-01-24] MEDS ORDERED: PANTOPRAZOLE 40 MG INJ IV (06:00)
[2019-01-24 06:04] LABS: ADD MAN DIFF? YES
[2019-01-24 06:18] LABS: ALANINE AMINOTRANSFERASE 19 IU/L (13-69); ALBUMIN 2.7 g/dl (3.3-4.9); ALKALINE PHOSPHATASE 111 IU/L (42-121); ANION GAP 17 (5-13); ASPARTATE AMINO TRANSFERASE 44 IU/L (15-46); BILIRUBIN,INDIRECT 0.3 mg/dl (0-1.1); BILIRUBIN,TOTAL 0.3 mg/dl (0.2-1.3); BLOOD UREA NITROGEN 52 mg/dl (7-20); CALCIUM 8.6 mg/dl (8.4-10.2); CARBON DIOXIDE 21 mmol/L (21-31); CHLORIDE 101 mmol/L (97-110); GLUCOSE 128 mg/dl (70-220); SODIUM 139 mmol/L (135-144); TOTAL PROTEIN 5.4 g/dl (6.1-8.1)
[2019-01-24 07:46] LABS: MAGNESIUM 2.2 mg/dl (1.7-2.5)
[2019-01-24 07:46] LABS: PHOSPHORUS 4.6 mg/dl (2.5-4.9)
[2019-01-24 08:08] LABS: ANISOCYTOSIS 1+ (0-0); BAND NEUTROPHILS % (M) 37 % (0-4); BURR CELLS 1+ (0-0); GIANT THROMBO% (M) 1 % (0-0); LYMPHOCYTES #M 0.9 10^3/ul (0.8-2.9); LYMPHOCYTES % (M) 4 % (15-51); PLATELET ESTIMATE INCREASED; POIKILOCYTOSIS 1+ (0-0); SEG NEUT #M 16.7 10^3/ul (1.6-7.5); SEGMENTED NEUTROPHILS (M) % 59 % (39-77); SMUDGE%M 2 % (0-0)
[2019-01-24] MEDS: ATENOLOL 25 MG TAB NGT ×2 (08:47→21:47)
[2019-01-24] MEDS: APIXABAN 5 MG TABLET NGT ×2 (08:49→21:47)
[2019-01-24] MEDS: FERROUS SULFATE 60 MG/ML 5ML CUP NGT (08:49)
[2019-01-24] MEDS: CEFEPIME 1GM/50 ML (PMX) 50 ML IVPB (08:49)
[2019-01-24] MEDS ORDERED: POTASSIUM CHLORIDE 20 MEQ POWDER FOR ORAL SOLN NGT (09:00)
[2019-01-24] MEDS: DIGOXIN 0.125 MG TAB NGT (13:33)
[2019-01-24] MEDS: SOD CHLORIDE 0.9% 1,000 ML IV ×2 (13:34→22:13)
[2019-01-25] MEDS: PROPOFOL 100 ML IV ×2 (00:37→06:39)
[2019-01-25] MEDS: NORepinephrine 8MG/250 ML (PMX 250 ML IV (00:39)
[2019-01-25 05:43] LABS: ABNORMAL IP MESSAGE 1; HEMATOCRIT 27.4 % (42.0-52.0); HEMOGLOBIN 9.2 g/dl (14.0-18.0); MEAN CORPUSCULAR HEMOGLOBIN 27.4 pg (29.0-33.0); MEAN CORPUSCULAR HGB CONC 33.6 g/dl (32.0-37.0); MEAN CORPUSCULAR VOLUME 81.5 fl (82.0-101.0); MEAN PLATELET VOLUME 9.3 fl (7.4-10.4); NUCLEATED RED BLOOD CELLS% 0.1 /100WBC (0.0-0.0); PLATELET COUNT 551 10^3/UL (140-415); POSITIVE DIFF @See below; RED BLOOD COUNT 3.36 10^6/ul (4.70-6.10)
[2019-01-25 05:43] LABS: WHITE BLOOD COUNT 30.3 10^3/ul (4.8-10.8)
[2019-01-25] MEDS: VANCOMYCIN 750 MG (PMX) 250 ML IVPB (05:46)
[2019-01-25] MEDS: LANSOPRAZOLE 30 MG CAP NGT (05:46)
[2019-01-25] MEDS: METHYLPREDNISOLONE 40 MG INJ IV ×3 (05:46→20:51)
[2019-01-25 05:52] LABS: ADD MAN DIFF? YES
[2019-01-25 06:23] LABS: ANION GAP 11 (5-13); BLOOD UREA NITROGEN 79 mg/dl (7-20); CALCIUM 8.3 mg/dl (8.4-10.2); CARBON DIOXIDE 24 mmol/L (21-31); CHLORIDE 104 mmol/L (97-110); CREATININE 2.63 mg/dl (0.61-1.24); GLUCOSE 232 mg/dl (70-220); POTASSIUM 3.4 mmol/L (3.5-5.1); SODIUM 139 mmol/L (135-144)
[2019-01-25 06:30] LABS: PHOSPHORUS 4.3 mg/dl (2.5-4.9)
[2019-01-25 06:30] LABS: MAGNESIUM 2.3 mg/dl (1.7-2.5)
[2019-01-25] MEDS: DILTIAZEM-D5W 125MG/125ML DRIP 125 ML IV (07:34)
[2019-01-25 07:45] LABS: ANISOCYTOSIS 1+ (0-0); BAND NEUTROPHILS % (M) 10 % (0-4); BURR CELLS 3+ (0-0); LYMPHOCYTES #M 0.3 10^3/ul (0.8-2.9); LYMPHOCYTES % (M) 1 % (15-51); MONOCYTE #M 0.6 10^3/ul (0.3-0.9); MONOCYTES % (M) 2 % (0-11); OVALOCYTES 1+ (0-0); PLATELET ESTIMATE INCREASED; POIKILOCYTOSIS 3+ (0-0); POLYCHROMASIA 2+ (0-0); SEG NEUT #M 27.3 10^3/ul (1.6-7.5); SEGMENTED NEUTROPHILS (M) % 87 % (39-77); SMUDGE%M 12 % (0-0)
[2019-01-25] MEDS: FUROSEMIDE 40 MG INJ IV (08:19)
[2019-01-25] MEDS: CEFEPIME 1GM/50 ML (PMX) 50 ML IVPB (08:19)
[2019-01-25] MEDS: FERROUS SULFATE 60 MG/ML 5ML CUP NGT (08:19)
[2019-01-25] MEDS: APIXABAN 5 MG TABLET NGT ×2 (08:20→20:59)
[2019-01-25] MEDS: ATENOLOL 25 MG TAB NGT ×2 (08:20→20:50)
[2019-01-25 08:53] LABS: AADO2 Arterial 94.8 mmHg (7.0-24.0); Allen Test ACCEPTAB; Arterial Base Excess -2.2 mmol/L (-3.0-3); Arterial Blood Gas Oxygen Sat 94.7 mmHG (95.0-100.0); Arterial COHb 0.6 % (0.0-3.0); Arterial Fraction of Oxyhgb 93.8 % (93.0-99.0); Arterial HCO3 21.6 mmol/L (22.0-26.0); Arterial MetHb 0.4 % (0.0-1.5); Arterial pCO2 34.1 mmhg (35-45); MODE VENT - AC; Site Right Radial
[2019-01-25] MEDS: POTASSIUM CHLORIDE 50 ML IVPB ×2 (11:23→14:00)
[2019-01-25] MEDS: MIDAZOLAM (DRIP) 50 mg/50 mL 50 ML IV ×2 (11:23→22:21)
[2019-01-25] MEDS: FENTAnyl (DRIP) 1000 mcg/100mL 100 ML IV (11:29)
[2019-01-25] MEDS: DIGOXIN 0.125 MG TAB NGT (13:58)
[2019-01-25] MEDS ORDERED: DEXTROSE 50% 50 ML SYRINGE IV ×2 (15:00)
[2019-01-25] MEDS ORDERED: GLUCOSE GEL 15 GRAM TUBE PO ×2 (15:00)
[2019-01-25] MEDS ORDERED: GLUCOSE GEL 15 GRAM TUBE BUCCAL (15:00)
[2019-01-25] MEDS ORDERED: GLUCAGON 1 MG INJ IM (15:00)
[2019-01-25] MEDS: SOD CHLORIDE 0.9% 1,000 ML IV (17:59)
[2019-01-25] MEDS: INSULIN ASPART [NOVOLOG] 3 ML PEN SC ×2 (18:05→20:53)
[2019-01-25] MEDS: MEROPENEM 500MG/50 ML (PMX) 50 ML IVPB (20:51)
[2019-01-26] MEDS: INSULIN ASPART [NOVOLOG] 3 ML PEN SC ×6 (01:28→21:01)
[2019-01-26] MEDS ORDERED: ACCU-CHEK XX (02:00)
[2019-01-26 05:17] LABS: ADD MAN DIFF? NO
[2019-01-26] MEDS: LANSOPRAZOLE 30 MG CAP NGT (05:21)
[2019-01-26 05:23] LABS: BASOPHILS % 0.1 % (0.0-2.0); HEMATOCRIT 25.5 % (42.0-52.0); HEMOGLOBIN 8.7 g/dl (14.0-18.0); LYMPHOCYTES # 0.7 10^3/ul (0.8-2.9); LYMPHOCYTES % 3.3 % (15.0-51.0); MEAN CORPUSCULAR HEMOGLOBIN 27.5 pg (29.0-33.0); MEAN CORPUSCULAR HGB CONC 34.1 g/dl (32.0-37.0); MEAN CORPUSCULAR VOLUME 80.7 fl (82.0-101.0); MEAN PLATELET VOLUME 9.3 fl (7.4-10.4); MONOCYTE # 1.3 10^3/ul (0.3-0.9); MONOCYTES % 6.6 % (0.0-11.0); NEUTROPHILS % 88.8 % (39.0-77.0); NUCLEATED RED BLOOD CELLS% 0.1 /100WBC (0.0-0.0); PLATELET COUNT 455 10^3/UL (140-415); RED BLOOD COUNT 3.16 10^6/ul (4.70-6.10); RED CELL DISTRIBUTION WIDTH 15.1 % (11.5-14.5)
[2019-01-26 05:23] LABS: WHITE BLOOD COUNT 20.3 10^3/ul (4.8-10.8)
[2019-01-26 06:07] LABS: DIGOXIN 1.6 ng/ml (1.0-2.0)
[2019-01-26 06:11] LABS: ANION GAP 9 (5-13); BLOOD UREA NITROGEN 102 mg/dl (7-20); CALCIUM 8.6 mg/dl (8.4-10.2); CARBON DIOXIDE 24 mmol/L (21-31); CHLORIDE 110 mmol/L (97-110); CREATININE 2.74 mg/dl (0.61-1.24); GLUCOSE 163 mg/dl (70-220); POTASSIUM 3.6 mmol/L (3.5-5.1); SODIUM 143 mmol/L (135-144)
[2019-01-26 06:12] LABS: CREATINE KINASE 316 IU/L (23-200)
[2019-01-26] MEDS: SOD CHLORIDE 0.9% 1,000 ML IV ×2 (06:46→09:04)
[2019-01-26] MEDS: ATENOLOL 25 MG TAB NGT ×2 (09:00→21:00)
[2019-01-26] MEDS: FUROSEMIDE 40 MG INJ IV (09:04)
[2019-01-26] MEDS: METHYLPREDNISOLONE 40 MG INJ IV (09:04)
[2019-01-26] MEDS: FERROUS SULFATE 60 MG/ML 5ML CUP NGT (09:04)
[2019-01-26] MEDS: APIXABAN 5 MG TABLET NGT ×2 (09:05→20:54)
[2019-01-26] MEDS: MEROPENEM 500MG/50 ML (PMX) 50 ML IVPB ×2 (09:06→20:54)
[2019-01-26] MEDS: PROPOFOL 100 ML IV (12:34)
[2019-01-26] MEDS: DIGOXIN 0.125 MG TAB NGT (12:35)
[2019-01-26] MEDS: EPOETIN ALFA-EPBX (NON-ESRD) 4,000 UNIT/ML VIAL SC (12:36)
[2019-01-26] MEDS: MIDAZOLAM (DRIP) 50 mg/50 mL 50 ML IV ×2 (16:11→21:02)
[2019-01-26] MEDS: VANCOMYCIN 750 MG (PMX) 250 ML IVPB (17:17)
[2019-01-26 18:19] LABS: VANCOMYCIN,TROUGH 13.7 ug/ml (10.0-20.0)
[2019-01-26] MEDS: FENTAnyl (DRIP) 1000 mcg/100mL 100 ML IV (21:06)
[2019-01-27] MEDS: PROPOFOL 100 ML IV (01:00)
[2019-01-27] MEDS: INSULIN ASPART [NOVOLOG] 3 ML PEN SC ×6 (01:06→21:57)
[2019-01-27 04:56] LABS: ADD MAN DIFF? NO
[2019-01-27 04:59] LABS: WHITE BLOOD COUNT 16.4 10^3/ul (4.8-10.8)
[2019-01-27 04:59] LABS: BASOPHILS % 0.2 % (0.0-2.0); HEMATOCRIT 24.9 % (42.0-52.0); HEMOGLOBIN 8.3 g/dl (14.0-18.0); LYMPHOCYTES # 0.7 10^3/ul (0.8-2.9); LYMPHOCYTES % 4.2 % (15.0-51.0); MEAN CORPUSCULAR HEMOGLOBIN 27.4 pg (29.0-33.0); MEAN CORPUSCULAR HGB CONC 33.3 g/dl (32.0-37.0); MEAN CORPUSCULAR VOLUME 82.2 fl (82.0-101.0); MEAN PLATELET VOLUME 9.3 fl (7.4-10.4); MONOCYTE # 1.4 10^3/ul (0.3-0.9); MONOCYTES % 8.8 % (0.0-11.0); NEUTROPHIL # 13.7 10^3/ul (1.6-7.5); NEUTROPHILS % 83.5 % (39.0-77.0); PLATELET COUNT 389 10^3/UL (140-415); RED BLOOD COUNT 3.03 10^6/ul (4.70-6.10)
[2019-01-27] MEDS: LANSOPRAZOLE 30 MG CAP NGT (05:48)
[2019-01-27] MEDS: SOD CHLORIDE 0.9% 1,000 ML IV (06:00)
[2019-01-27 06:54] LABS: ANION GAP 10 (5-13); BLOOD UREA NITROGEN 117 mg/dl (7-20); CALCIUM 8.7 mg/dl (8.4-10.2); CARBON DIOXIDE 23 mmol/L (21-31); CHLORIDE 111 mmol/L (97-110); GLUCOSE 185 mg/dl (70-220); MAGNESIUM 2.4 mg/dl (1.7-2.5); PHOSPHORUS 2.9 mg/dl (2.5-4.9); POTASSIUM 3.3 mmol/L (3.5-5.1); SODIUM 144 mmol/L (135-144)
[2019-01-27 07:51] LABS: AADO2 Arterial 79.1 mmHg (7.0-24.0); Allen Test ACCEPTAB; Arterial Base Excess -2.5 mmol/L (-3.0-3); Arterial Blood Gas Oxygen Sat 97.4 mmHG (95.0-100.0); Arterial COHb 0.3 % (0.0-3.0); Arterial Fraction of Oxyhgb 96.8 % (93.0-99.0); Arterial HCO3 20.3 mmol/L (22.0-26.0); Arterial MetHb 0.3 % (0.0-1.5); Arterial pCO2 28.4 mmhg (35-45); MODE VENT - AC; Site Right Radial
[2019-01-27] MEDS: MEROPENEM 500MG/50 ML (PMX) 50 ML IVPB ×2 (08:26→21:54)
[2019-01-27] MEDS: METHYLPREDNISOLONE 40 MG INJ IV (08:26)
[2019-01-27] MEDS: FERROUS SULFATE 60 MG/ML 5ML CUP NGT (08:26)
[2019-01-27] MEDS: ATENOLOL 25 MG TAB NGT ×2 (08:27→21:56)
[2019-01-27] MEDS: APIXABAN 5 MG TABLET NGT ×2 (08:27→21:55)
[2019-01-27] MEDS ORDERED: ALBUTEROL HFA 8 GM INHALER INH (09:30)
[2019-01-27] MEDS: POTASSIUM CHLORIDE 100 ML IVPB (11:08)
[2019-01-27 11:11] LABS: INR 1.49; PROTIME 18.1 Sec (11.9-14.9); PT RATIO 1.4
[2019-01-27] MEDS: FUROSEMIDE 20 MG INJ IV (12:21)
[2019-01-27] MEDS: DIGOXIN 0.125 MG TAB NGT (12:59)
[2019-01-27] MEDS: IPRATROPIUM (HFA) 12.9 GM INHALER INH ×2 (13:26→19:43)
[2019-01-27] MEDS: ALBUTEROL HFA 8 GM INHALER INH ×2 (13:27→19:48)
[2019-01-27] MEDS: MIDAZOLAM (DRIP) 50 mg/50 mL 50 ML IV (19:32)
[2019-01-27] MEDS: FENTAnyl (DRIP) 1000 mcg/100mL 100 ML IV (23:28)
[2019-01-28] MEDS: INSULIN ASPART [NOVOLOG] 3 ML PEN SC ×6 (00:17→21:22)
[2019-01-28] MEDS: ALBUTEROL HFA 8 GM INHALER INH ×4 (01:41→19:30)
[2019-01-28] MEDS: LANSOPRAZOLE 30 MG CAP NGT (05:04)
[2019-01-28] MEDS: VANCOMYCIN 750 MG (PMX) 250 ML IVPB (05:04)
[2019-01-28] MEDS: MIDAZOLAM (DRIP) 50 mg/50 mL 50 ML IV ×2 (05:17→19:50)
[2019-01-28 05:32] LABS: ABNORMAL IP MESSAGE 1; HEMATOCRIT 29.2 % (42.0-52.0); HEMOGLOBIN 9.6 g/dl (14.0-18.0); MEAN CORPUSCULAR HEMOGLOBIN 27.3 pg (29.0-33.0); MEAN CORPUSCULAR HGB CONC 32.9 g/dl (32.0-37.0); MEAN PLATELET VOLUME 9.6 fl (7.4-10.4); PLATELET COUNT 451 10^3/UL (140-415); POSITIVE DIFF @See below; RED BLOOD COUNT 3.52 10^6/ul (4.70-6.10); RED CELL DISTRIBUTION WIDTH 15.7 % (11.5-14.5)
[2019-01-28 05:44] LABS: ADD MAN DIFF? YES
[2019-01-28 05:57] LABS: PHOSPHORUS 3.4 mg/dl (2.5-4.9)
[2019-01-28 05:57] LABS: MAGNESIUM 2.6 mg/dl (1.7-2.5)
[2019-01-28 07:06] LABS: ALANINE AMINOTRANSFERASE 39 IU/L (13-69); ALBUMIN 2.6 g/dl (3.3-4.9); ALBUMIN/GLOBULIN RATIO 0.89; ALKALINE PHOSPHATASE 107 IU/L (42-121); ANION GAP 11 (5-13); ASPARTATE AMINO TRANSFERASE 55 IU/L (15-46); BILIRUBIN,INDIRECT 0.2 mg/dl (0-1.1); BILIRUBIN,TOTAL 0.2 mg/dl (0.2-1.3); CALCIUM 9.3 mg/dl (8.4-10.2); CARBON DIOXIDE 25 mmol/L (21-31); CHLORIDE 113 mmol/L (97-110); GLUCOSE 172 mg/dl (70-220); POTASSIUM 3.7 mmol/L (3.5-5.1); SODIUM 149 mmol/L (135-144); TOTAL PROTEIN 5.5 g/dl (6.1-8.1)
[2019-01-28 07:24] LABS: BLOOD UREA NITROGEN 127 mg/dl (7-20)
[2019-01-28] MEDS: IPRATROPIUM (HFA) 12.9 GM INHALER INH ×3 (07:50→19:30)
[2019-01-28] MEDS: METHYLPREDNISOLONE 40 MG INJ IV (08:54)
[2019-01-28] MEDS: ATENOLOL 25 MG TAB NGT ×2 (08:55→21:00)
[2019-01-28] MEDS: FERROUS SULFATE 60 MG/ML 5ML CUP NGT (08:56)
[2019-01-28] MEDS: MEROPENEM 500MG/50 ML (PMX) 50 ML IVPB ×2 (08:56→21:19)
[2019-01-28] MEDS: APIXABAN 5 MG TABLET NGT ×2 (08:57→21:19)
[2019-01-28 13:34] LABS: BURR CELLS 1+ (0-0); ERYTHROBLAST% (NRBC) (M) 1 % (0-0); GIANT THROMBO% (M) 1 % (0-0); LYMPHOCYTES #M 1.2 10^3/ul (0.8-2.9); LYMPHOCYTES % (M) 6 % (15-51); MONOCYTE #M 1.6 10^3/ul (0.3-0.9); MONOCYTES % (M) 8 % (0-11); PLATELET ESTIMATE NORMAL; POIKILOCYTOSIS 2+ (0-0); SEGMENTED NEUTROPHILS (M) % 86 % (39-77); SMUDGE%M 5 % (0-0); SPHEROCYTES 1+ (0-0)
[2019-01-28 15:52] LABS: ANION GAP 6 (5-13); CARBON DIOXIDE 27 mmol/L (21-31); CHLORIDE 115 mmol/L (97-110); CREATININE 2.29 mg/dl (0.61-1.24); GLUCOSE 170 mg/dl (70-220); SODIUM 148 mmol/L (135-144)
[2019-01-28 16:03] LABS: BLOOD UREA NITROGEN 128 mg/dl (7-20)
[2019-01-28] MEDS: DEXMEDETOMIDINE IN DEXTROSE 5% 50 ML IV (17:47)
[2019-01-28] MEDS: FENTAnyl (DRIP) 1000 mcg/100mL 100 ML IV (21:24)
[2019-01-29] MEDS: INSULIN ASPART [NOVOLOG] 3 ML PEN SC ×6 (00:16→21:28)
[2019-01-29] MEDS: ALBUTEROL HFA 8 GM INHALER INH ×4 (01:25→19:29)
[2019-01-29] MEDS: MIDAZOLAM (DRIP) 50 mg/50 mL 50 ML IV ×3 (04:06→20:02)
[2019-01-29 04:54] LABS: AADO2 Arterial 76.7 mmHg (7.0-24.0); Allen Test ACCEPTAB; Arterial Base Excess 0.5 mmol/L (-3.0-3); Arterial Blood Gas Oxygen Sat 97.1 mmHG (95.0-100.0); Arterial COHb 0.3 % (0.0-3.0); Arterial Fraction of Oxyhgb 96.4 % (93.0-99.0); Arterial MetHb 0.4 % (0.0-1.5); Arterial pCO2 34.8 mmhg (35-45); MODE VENT - AC; Site Left Radial
[2019-01-29] MEDS: LANSOPRAZOLE 30 MG CAP NGT (05:06)
[2019-01-29 05:52] LABS: ADD MAN DIFF? NO
[2019-01-29 06:03] LABS: ABNORMAL IP MESSAGE 1; BASOPHIL # 0.1 10^3/ul (0.0-0.1); BASOPHILS % 0.3 % (0.0-2.0); EOSINOPHILS # 0.1 10^3/ul (0.0-0.5); EOSINOPHILS % 0.3 % (0.0-7.0); HEMATOCRIT 29.8 % (42.0-52.0); HEMOGLOBIN 9.5 g/dl (14.0-18.0); LYMPHOCYTES # 1.6 10^3/ul (0.8-2.9); LYMPHOCYTES % 6.6 % (15.0-51.0); MEAN CORPUSCULAR HGB CONC 31.9 g/dl (32.0-37.0); MEAN CORPUSCULAR VOLUME 84.7 fl (82.0-101.0); MEAN PLATELET VOLUME 9.9 fl (7.4-10.4); MONOCYTE # 2.2 10^3/ul (0.3-0.9); MONOCYTES % 9.4 % (0.0-11.0); NEUTROPHIL # 17.6 10^3/ul (1.6-7.5); NEUTROPHILS % 74.3 % (39.0-77.0); NUCLEATED RED BLOOD CELLS% 0.1 /100WBC (0.0-0.0); PLATELET COUNT 428 10^3/UL (140-415); POSITIVE DIFF @See below; RED BLOOD COUNT 3.52 10^6/ul (4.70-6.10); RED CELL DISTRIBUTION WIDTH 15.8 % (11.5-14.5)
[2019-01-29 06:03] LABS: WHITE BLOOD COUNT 23.7 10^3/ul (4.8-10.8)
[2019-01-29 06:30] LABS: ALANINE AMINOTRANSFERASE 46 IU/L (13-69); ALBUMIN 2.3 g/dl (3.3-4.9); ALBUMIN/GLOBULIN RATIO 0.85; ALKALINE PHOSPHATASE 103 IU/L (42-121); ANION GAP 7 (5-13); ASPARTATE AMINO TRANSFERASE 55 IU/L (15-46); BILIRUBIN,INDIRECT 0.2 mg/dl (0-1.1); BILIRUBIN,TOTAL 0.2 mg/dl (0.2-1.3); CALCIUM 9.2 mg/dl (8.4-10.2); CARBON DIOXIDE 26 mmol/L (21-31); CHLORIDE 118 mmol/L (97-110); CREATININE 2.07 mg/dl (0.61-1.24); GLUCOSE 142 mg/dl (70-220); POTASSIUM 4.2 mmol/L (3.5-5.1); SODIUM 151 mmol/L (135-144)
[2019-01-29 06:31] LABS: MAGNESIUM 2.7 mg/dl (1.7-2.5)
[2019-01-29 06:31] LABS: PHOSPHORUS 3.5 mg/dl (2.5-4.9)
[2019-01-29 06:49] LABS: BLOOD UREA NITROGEN 133 mg/dl (7-20)
[2019-01-29 07:40] LABS: ANISOCYTOSIS 2+ (0-0); BAND NEUTROPHILS #M 0.7 10^3/ul (0.0-0.6); BAND NEUTROPHILS % (M) 3 % (0-4); BURR CELLS 1+ (0-0); GIANT THROMBO% (M) 1 % (0-0); LYMPHOCYTES #M 1.4 10^3/ul (0.8-2.9); LYMPHOCYTES % (M) 6 % (15-51); METAMYELOCYTES #M 1.6 10^3/ul (0.0-0.0); METAMYELOCYTES %M 7 % (0-0); MICROCYTOSIS 1+ (0-0); MONOCYTE #M 1.6 10^3/ul (0.3-0.9); MONOCYTES % (M) 7 % (0-11); MYELOCYTES #M 1.4 10^3/ul (0.0-0.0); MYELOCYTES % (M) 6 % (0-0); PLATELET ESTIMATE NORMAL; POIKILOCYTOSIS 3+ (0-0); POLYCHROMASIA 3+ (0-0); PROMYELOCYTES #M 0.2 10^3/ul (0-0); PROMYELOCYTES % (M) 1 % (0-0); REACTIVE LYMPHOCYTES #M 0.2 10^3/ul (0.0-0.0); REACTIVE LYMPHOCYTES% (M) 1 % (0-0); SEG NEUT #M 16.5 10^3/ul (1.6-7.5); SEGMENTED NEUTROPHILS (M) % 69 % (39-77); SMUDGE%M 2 % (0-0); TARGET CELLS 1+ (0-0)
[2019-01-29] MEDS: IPRATROPIUM (HFA) 12.9 GM INHALER INH ×3 (07:59→19:29)
[2019-01-29] MEDS: MEROPENEM 500MG/50 ML (PMX) 50 ML IVPB ×2 (08:51→21:32)
[2019-01-29] MEDS: FERROUS SULFATE 60 MG/ML 5ML CUP NGT (08:51)
[2019-01-29] MEDS: predniSONE 10 MG TAB PO (08:52)
[2019-01-29] MEDS: APIXABAN 5 MG TABLET NGT ×2 (08:52→21:24)
[2019-01-29] MEDS: ATENOLOL 25 MG TAB NGT ×2 (09:26→21:24)
[2019-01-29] MEDS: DEXTROSE 5% 1,000 ML IV (11:50)
[2019-01-29] MEDS: LIDOCAINE 1% (MPF) 5 ML VIAL SC (14:45)
[2019-01-29 17:25] LABS: ANION GAP 6 (5-13); CALCIUM 8.8 mg/dl (8.4-10.2); CARBON DIOXIDE 27 mmol/L (21-31); CHLORIDE 117 mmol/L (97-110); CREATININE 2.25 mg/dl (0.61-1.24); GLUCOSE 147 mg/dl (70-220); POTASSIUM 4.2 mmol/L (3.5-5.1); SODIUM 150 mmol/L (135-144)
[2019-01-29 17:33] LABS: VANCOMYCIN,TROUGH 17.8 ug/ml (10.0-20.0)
[2019-01-29 17:34] LABS: BLOOD UREA NITROGEN 126 mg/dl (7-20)
[2019-01-29] MEDS: VANCOMYCIN 750 MG (PMX) 250 ML IVPB (18:34)
[2019-01-29] MEDS: FENTAnyl (DRIP) 1000 mcg/100mL 100 ML IV ×2 (18:43→20:06)
[2019-01-30] MEDS: DEXTROSE 5% 1,000 ML IV (00:41)
[2019-01-30] MEDS: INSULIN ASPART [NOVOLOG] 3 ML PEN SC ×6 (00:47→20:56)
[2019-01-30] MEDS: ALBUTEROL HFA 8 GM INHALER INH ×4 (01:13→19:47)
[2019-01-30] MEDS: MIDAZOLAM (DRIP) 50 mg/50 mL 50 ML IV ×3 (04:53→23:05)
[2019-01-30] MEDS: LANSOPRAZOLE 30 MG CAP NGT (05:03)
[2019-01-30 05:13] LABS: AADO2 Arterial 65.1 mmHg (7.0-24.0); Allen Test ACCEPTAB; Arterial Base Excess 0.5 mmol/L (-3.0-3); Arterial Blood Gas Oxygen Sat 97.8 mmHG (95.0-100.0); Arterial COHb 0.2 % (0.0-3.0); Arterial Fraction of Oxyhgb 97.3 % (93.0-99.0); Arterial HCO3 23.9 mmol/L (22.0-26.0); Arterial MetHb 0.3 % (0.0-1.5); Arterial pCO2 33.8 mmhg (35-45); MODE VENT - AC; Site Left Radial
[2019-01-30 05:21] LABS: ADD MAN DIFF? NO
[2019-01-30 05:28] LABS: ABNORMAL IP MESSAGE 1; BASOPHIL # 0.1 10^3/ul (0.0-0.1); BASOPHILS % 0.4 % (0.0-2.0); EOSINOPHILS # 0.1 10^3/ul (0.0-0.5); EOSINOPHILS % 0.3 % (0.0-7.0); HEMATOCRIT 26.7 % (42.0-52.0); HEMOGLOBIN 8.4 g/dl (14.0-18.0); LYMPHOCYTES # 1.4 10^3/ul (0.8-2.9); LYMPHOCYTES % 6.5 % (15.0-51.0); MEAN CORPUSCULAR HEMOGLOBIN 27.5 pg (29.0-33.0); MEAN CORPUSCULAR HGB CONC 31.5 g/dl (32.0-37.0); MEAN CORPUSCULAR VOLUME 87.3 fl (82.0-101.0); MEAN PLATELET VOLUME 10.1 fl (7.4-10.4); MONOCYTE # 1.8 10^3/ul (0.3-0.9); MONOCYTES % 8.1 % (0.0-11.0); NEUTROPHIL # 16.5 10^3/ul (1.6-7.5); NEUTROPHILS % 75.9 % (39.0-77.0); PLATELET COUNT 353 10^3/UL (140-415); POSITIVE DIFF @See below; RED BLOOD COUNT 3.06 10^6/ul (4.70-6.10); RED CELL DISTRIBUTION WIDTH 16.3 % (11.5-14.5)
[2019-01-30 05:28] LABS: WHITE BLOOD COUNT 21.8 10^3/ul (4.8-10.8)
[2019-01-30 05:49] LABS: ALANINE AMINOTRANSFERASE 39 IU/L (13-69); ALBUMIN 2.2 g/dl (3.3-4.9); ALBUMIN/GLOBULIN RATIO 0.81; ALKALINE PHOSPHATASE 92 IU/L (42-121); ANION GAP 7 (5-13); ASPARTATE AMINO TRANSFERASE 35 IU/L (15-46); BILIRUBIN,INDIRECT 0.2 mg/dl (0-1.1); BILIRUBIN,TOTAL 0.2 mg/dl (0.2-1.3); CALCIUM 8.5 mg/dl (8.4-10.2); CARBON DIOXIDE 26 mmol/L (21-31); CHLORIDE 115 mmol/L (97-110); CREATININE 1.96 mg/dl (0.61-1.24); GLUCOSE 164 mg/dl (70-220); POTASSIUM 3.8 mmol/L (3.5-5.1); SODIUM 148 mmol/L (135-144); TOTAL PROTEIN 4.9 g/dl (6.1-8.1)
[2019-01-30 06:02] LABS: MAGNESIUM 2.5 mg/dl (1.7-2.5)
[2019-01-30 06:16] LABS: BLOOD UREA NITROGEN 126 mg/dl (7-20)
[2019-01-30 07:55] LABS: ANISOCYTOSIS 1+ (0-0); BAND NEUTROPHILS #M 0.6 10^3/ul (0.0-0.6); BAND NEUTROPHILS % (M) 3 % (0-4); BURR CELLS 1+ (0-0); LYMPHOCYTES #M 1.7 10^3/ul (0.8-2.9); LYMPHOCYTES % (M) 8 % (15-51); METAMYELOCYTES #M 0.2 10^3/ul (0.0-0.0); METAMYELOCYTES %M 1 % (0-0); MONOCYTE #M 1.3 10^3/ul (0.3-0.9); MONOCYTES % (M) 6 % (0-11); MYELOCYTES % (M) 5 % (0-0); PLATELET ESTIMATE NORMAL; POIKILOCYTOSIS 1+ (0-0); POLYCHROMASIA 1+ (0-0); SEG NEUT #M 16.9 10^3/ul (1.6-7.5); SEGMENTED NEUTROPHILS (M) % 77 % (39-77); SMUDGE%M 32 % (0-0)
[2019-01-30] MEDS: IPRATROPIUM (HFA) 12.9 GM INHALER INH ×3 (08:27→19:48)
[2019-01-30] MEDS: ATENOLOL 25 MG TAB NGT ×2 (09:00→20:54)
[2019-01-30] MEDS: APIXABAN 5 MG TABLET NGT ×2 (09:18→20:47)
[2019-01-30] MEDS: MEROPENEM 500MG/50 ML (PMX) 50 ML IVPB ×2 (09:18→20:52)
[2019-01-30] MEDS: predniSONE 10 MG TAB PO (09:18)
[2019-01-30] MEDS: FERROUS SULFATE 60 MG/ML 5ML CUP NGT (09:18)
[2019-01-30] MEDS: FENTAnyl (DRIP) 1000 mcg/100mL 100 ML IV (13:59)
[2019-01-31] MEDS: ALBUTEROL HFA 8 GM INHALER INH ×4 (01:08→20:01)
[2019-01-31] MEDS: INSULIN ASPART [NOVOLOG] 3 ML PEN SC ×6 (01:17→21:07)
[2019-01-31] MEDS: FENTAnyl (DRIP) 1000 mcg/100mL 100 ML IV ×2 (02:50→14:45)
[2019-01-31] MEDS: DEXTROSE 5% 1,000 ML IV (03:51)
[2019-01-31 05:29] LABS: ADD MAN DIFF? NO
[2019-01-31 05:32] LABS: WHITE BLOOD COUNT 20.8 10^3/ul (4.8-10.8)
[2019-01-31 05:32] LABS: ABNORMAL IP MESSAGE 1; BASOPHIL # 0.1 10^3/ul (0.0-0.1); BASOPHILS % 0.4 % (0.0-2.0); EOSINOPHILS # 0.1 10^3/ul (0.0-0.5); EOSINOPHILS % 0.3 % (0.0-7.0); HEMATOCRIT 27.4 % (42.0-52.0); HEMOGLOBIN 8.8 g/dl (14.0-18.0); LYMPHOCYTES # 1.3 10^3/ul (0.8-2.9); LYMPHOCYTES % 6.3 % (15.0-51.0); MEAN CORPUSCULAR HEMOGLOBIN 27.7 pg (29.0-33.0); MEAN CORPUSCULAR HGB CONC 32.1 g/dl (32.0-37.0); MEAN CORPUSCULAR VOLUME 86.2 fl (82.0-101.0); MEAN PLATELET VOLUME 10.4 fl (7.4-10.4); MONOCYTE # 1.5 10^3/ul (0.3-0.9); MONOCYTES % 7.2 % (0.0-11.0); NEUTROPHIL # 16.5 10^3/ul (1.6-7.5); NUCLEATED RED BLOOD CELLS% 0.1 /100WBC (0.0-0.0); PLATELET COUNT 351 10^3/UL (140-415); POSITIVE DIFF @See below; RED BLOOD COUNT 3.18 10^6/ul (4.70-6.10); RED CELL DISTRIBUTION WIDTH 16.5 % (11.5-14.5)
[2019-01-31] MEDS: LANSOPRAZOLE 30 MG CAP NGT (05:34)
[2019-01-31] MEDS: VANCOMYCIN 500 MG (PMX) 100 ML IVPB (05:34)
[2019-01-31 06:39] LABS: PHOSPHORUS 4.7 mg/dl (2.5-4.9)
[2019-01-31 06:39] LABS: MAGNESIUM 2.5 mg/dl (1.7-2.5)
[2019-01-31 06:45] LABS: ALANINE AMINOTRANSFERASE 33 IU/L (13-69); ALBUMIN 2.4 g/dl (3.3-4.9); ALBUMIN/GLOBULIN RATIO 0.82; ALKALINE PHOSPHATASE 85 IU/L (42-121); ANION GAP 8 (5-13); ASPARTATE AMINO TRANSFERASE 26 IU/L (15-46); BILIRUBIN,INDIRECT 0.2 mg/dl (0-1.1); BILIRUBIN,TOTAL 0.2 mg/dl (0.2-1.3); CALCIUM 8.9 mg/dl (8.4-10.2); CARBON DIOXIDE 26 mmol/L (21-31); CHLORIDE 113 mmol/L (97-110); CREATININE 1.83 mg/dl (0.61-1.24); GLUCOSE 164 mg/dl (70-220); POTASSIUM 3.8 mmol/L (3.5-5.1); SODIUM 147 mmol/L (135-144); TOTAL PROTEIN 5.3 g/dl (6.1-8.1)
[2019-01-31 07:18] LABS: BLOOD UREA NITROGEN 121 mg/dl (7-20)
[2019-01-31] MEDS: IPRATROPIUM (HFA) 12.9 GM INHALER INH ×3 (08:19→20:01)
[2019-01-31 08:38] LABS: ANISOCYTOSIS 1+ (0-0); BAND NEUTROPHILS #M 0.4 10^3/ul (0.0-0.6); BAND NEUTROPHILS % (M) 2 % (0-4); LYMPHOCYTES #M 0.4 10^3/ul (0.8-2.9); LYMPHOCYTES % (M) 2 % (15-51); MONOCYTE #M 1.2 10^3/ul (0.3-0.9); MONOCYTES % (M) 6 % (0-11); MYELOCYTES #M 0.2 10^3/ul (0.0-0.0); MYELOCYTES % (M) 1 % (0-0); PLATELET ESTIMATE NORMAL; POIKILOCYTOSIS 1+ (0-0); POLYCHROMASIA 2+ (0-0); PROMYELOCYTES #M 0.4 10^3/ul (0-0); PROMYELOCYTES % (M) 2 % (0-0); SEG NEUT #M 18.2 10^3/ul (1.6-7.5); SEGMENTED NEUTROPHILS (M) % 87 % (39-77); SMUDGE%M 24 % (0-0)
[2019-01-31] MEDS: MIDAZOLAM (DRIP) 50 mg/50 mL 50 ML IV ×2 (08:38→20:19)
[2019-01-31] MEDS: MEROPENEM 500MG/50 ML (PMX) 50 ML IVPB ×2 (09:34→20:59)
[2019-01-31] MEDS: FERROUS SULFATE 60 MG/ML 5ML CUP NGT (09:34)
[2019-01-31] MEDS: APIXABAN 5 MG TABLET NGT ×2 (09:34→20:59)
[2019-01-31] MEDS: predniSONE 10 MG TAB PO (09:35)
[2019-01-31] MEDS: ATENOLOL 25 MG TAB NGT ×2 (09:53→21:00)
[2019-01-31] MEDS: BISACODYL 10 MG SUPP PR ×2 (14:22→21:00)
[2019-01-31] MEDS: NA PHOSPHATE/BIPHOS 133 ML ENEMA PR (17:46)
[2019-02-01] MEDS: INSULIN ASPART [NOVOLOG] 3 ML PEN SC ×6 (01:18→21:22)
[2019-02-01] MEDS: ALBUTEROL HFA 8 GM INHALER INH ×4 (03:24→20:33)
[2019-02-01] MEDS: DEXTROSE 5% 1,000 ML IV (04:11)
[2019-02-01] MEDS: FENTAnyl (DRIP) 1000 mcg/100mL 100 ML IV ×2 (04:13→16:28)
[2019-02-01 05:05] LABS: ADD MAN DIFF? NO
[2019-02-01 05:18] LABS: WHITE BLOOD COUNT 24.6 10^3/ul (4.8-10.8)
[2019-02-01 05:18] LABS: ABNORMAL IP MESSAGE 1; BASOPHILS % 0.1 % (0.0-2.0); EOSINOPHILS % 0.1 % (0.0-7.0); HEMATOCRIT 26.1 % (42.0-52.0); HEMOGLOBIN 8.4 g/dl (14.0-18.0); LYMPHOCYTES # 1.1 10^3/ul (0.8-2.9); LYMPHOCYTES % 4.6 % (15.0-51.0); MEAN CORPUSCULAR HEMOGLOBIN 27.4 pg (29.0-33.0); MEAN CORPUSCULAR HGB CONC 32.2 g/dl (32.0-37.0); MEAN PLATELET VOLUME 10.6 fl (7.4-10.4); MONOCYTE # 1.6 10^3/ul (0.3-0.9); MONOCYTES % 6.6 % (0.0-11.0); NEUTROPHIL # 20.9 10^3/ul (1.6-7.5); PLATELET COUNT 328 10^3/UL (140-415); POSITIVE DIFF @See below; RED BLOOD COUNT 3.07 10^6/ul (4.70-6.10)
[2019-02-01] MEDS: LANSOPRAZOLE 30 MG CAP NGT (05:27)
[2019-02-01] MEDS: MIDAZOLAM (DRIP) 50 mg/50 mL 50 ML IV ×2 (05:27→20:18)
[2019-02-01 05:39] LABS: ANION GAP 5 (5-13); CALCIUM 8.3 mg/dl (8.4-10.2); CARBON DIOXIDE 26 mmol/L (21-31); CHLORIDE 111 mmol/L (97-110); CREATININE 1.63 mg/dl (0.61-1.24); GLUCOSE 151 mg/dl (70-220); POTASSIUM 4.1 mmol/L (3.5-5.1); SODIUM 142 mmol/L (135-144)
[2019-02-01 05:50] LABS: BLOOD UREA NITROGEN 115 mg/dl (7-20)
[2019-02-01] MEDS: IPRATROPIUM (HFA) 12.9 GM INHALER INH ×3 (08:36→20:33)
[2019-02-01] MEDS: ATENOLOL 25 MG TAB NGT ×2 (09:00→21:00)
[2019-02-01] MEDS: FERROUS SULFATE 60 MG/ML 5ML CUP NGT (10:02)
[2019-02-01] MEDS: MEROPENEM 500MG/50 ML (PMX) 50 ML IVPB ×2 (10:03→21:20)
[2019-02-01] MEDS: APIXABAN 5 MG TABLET NGT ×2 (10:03→21:21)
[2019-02-01] MEDS: predniSONE 10 MG TAB PO (10:03)
[2019-02-01] MEDS: VANCOMYCIN 500 MG (PMX) 100 ML IVPB (18:35)
[2019-02-01] MEDS: BISACODYL 10 MG SUPP PR (21:20)
[2019-02-02] MEDS: INSULIN ASPART [NOVOLOG] 3 ML PEN SC ×6 (01:01→20:54)
[2019-02-02] MEDS: ALBUTEROL HFA 8 GM INHALER INH ×4 (01:18→19:59)
[2019-02-02] MEDS: FENTAnyl (DRIP) 1000 mcg/100mL 100 ML IV ×2 (02:14→13:07)
[2019-02-02] MEDS: MIDAZOLAM (DRIP) 50 mg/50 mL 50 ML IV ×3 (05:24→23:31)
[2019-02-02] MEDS: LANSOPRAZOLE 30 MG CAP NGT (05:24)
[2019-02-02 05:32] LABS: ADD MAN DIFF? NO
[2019-02-02 05:36] LABS: BASOPHILS % 0.2 % (0.0-2.0); EOSINOPHILS % 0.1 % (0.0-7.0); HEMATOCRIT 24.9 % (42.0-52.0); LYMPHOCYTES % 4.9 % (15.0-51.0); MEAN CORPUSCULAR HEMOGLOBIN 27.7 pg (29.0-33.0); MEAN CORPUSCULAR HGB CONC 32.1 g/dl (32.0-37.0); MEAN CORPUSCULAR VOLUME 86.2 fl (82.0-101.0); MEAN PLATELET VOLUME 10.9 fl (7.4-10.4); MONOCYTE # 1.4 10^3/ul (0.3-0.9); MONOCYTES % 6.8 % (0.0-11.0); NEUTROPHIL # 17.6 10^3/ul (1.6-7.5); NEUTROPHILS % 84.7 % (39.0-77.0); PLATELET COUNT 309 10^3/UL (140-415); RED BLOOD COUNT 2.89 10^6/ul (4.70-6.10); RED CELL DISTRIBUTION WIDTH 16.7 % (11.5-14.5)
[2019-02-02 05:36] LABS: WHITE BLOOD COUNT 20.8 10^3/ul (4.8-10.8)
[2019-02-02 05:53] LABS: ANION GAP 5 (5-13); BLOOD UREA NITROGEN 111 mg/dl (7-20); CALCIUM 8.2 mg/dl (8.4-10.2); CARBON DIOXIDE 25 mmol/L (21-31); CHLORIDE 111 mmol/L (97-110); CREATININE 1.59 mg/dl (0.61-1.24); GLUCOSE 141 mg/dl (70-220); POTASSIUM 4.1 mmol/L (3.5-5.1); SODIUM 141 mmol/L (135-144)
[2019-02-02] MEDS: IPRATROPIUM (HFA) 12.9 GM INHALER INH ×3 (08:02→19:59)
[2019-02-02] MEDS: ATENOLOL 25 MG TAB NGT ×2 (08:41→20:53)
[2019-02-02] MEDS: APIXABAN 5 MG TABLET NGT (08:47)
[2019-02-02] MEDS: FERROUS SULFATE 60 MG/ML 5ML CUP NGT (08:47)
[2019-02-02] MEDS: MEROPENEM 500MG/50 ML (PMX) 50 ML IVPB ×2 (08:47→20:54)
[2019-02-02] MEDS: predniSONE 10 MG TAB PO (08:47)
[2019-02-02] MEDS: BISACODYL 10 MG SUPP PR (20:53)
[2019-02-03] MEDS: FENTAnyl (DRIP) 1000 mcg/100mL 100 ML IV ×3 (00:41→18:17)
[2019-02-03] MEDS: INSULIN ASPART [NOVOLOG] 3 ML PEN SC ×6 (01:00→20:53)
[2019-02-03] MEDS: ALBUTEROL HFA 8 GM INHALER INH ×4 (01:56→19:22)
[2019-02-03 05:26] LABS: WHITE BLOOD COUNT 15.6 10^3/ul (4.8-10.8)
[2019-02-03 05:26] LABS: ABNORMAL IP MESSAGE 1; BASOPHILS % 0.1 % (0.0-2.0); EOSINOPHILS # 0.1 10^3/ul (0.0-0.5); EOSINOPHILS % 0.9 % (0.0-7.0); LYMPHOCYTES # 1.3 10^3/ul (0.8-2.9); LYMPHOCYTES % 8.5 % (15.0-51.0); MEAN CORPUSCULAR HEMOGLOBIN 27.5 pg (29.0-33.0); MEAN CORPUSCULAR VOLUME 85.9 fl (82.0-101.0); MEAN PLATELET VOLUME 11.1 fl (7.4-10.4); MONOCYTE # 1.6 10^3/ul (0.3-0.9); MONOCYTES % 10.5 % (0.0-11.0); NEUTROPHILS % 77.1 % (39.0-77.0); PLATELET COUNT 319 10^3/UL (140-415); POSITIVE DIFF @See below; RED BLOOD COUNT 2.91 10^6/ul (4.70-6.10); RED CELL DISTRIBUTION WIDTH 17.2 % (11.5-14.5)
[2019-02-03 05:27] LABS: ADD MAN DIFF? NO
[2019-02-03 05:48] LABS: PHOSPHORUS 3.7 mg/dl (2.5-4.9)
[2019-02-03 05:48] LABS: MAGNESIUM 2.3 mg/dl (1.7-2.5)
[2019-02-03 05:50] LABS: VANCOMYCIN,TROUGH 14.7 ug/ml (10.0-20.0)
[2019-02-03 05:52] LABS: ALANINE AMINOTRANSFERASE 27 IU/L (13-69); ALBUMIN/GLOBULIN RATIO 0.74; ALKALINE PHOSPHATASE 71 IU/L (42-121); ANION GAP 5 (5-13); ASPARTATE AMINO TRANSFERASE 22 IU/L (15-46); BILIRUBIN,INDIRECT 0.2 mg/dl (0-1.1); BILIRUBIN,TOTAL 0.2 mg/dl (0.2-1.3); BLOOD UREA NITROGEN 106 mg/dl (7-20); CALCIUM 8.1 mg/dl (8.4-10.2); CARBON DIOXIDE 25 mmol/L (21-31); CHLORIDE 112 mmol/L (97-110); CREATININE 1.44 mg/dl (0.61-1.24); GLUCOSE 97 mg/dl (70-220); POTASSIUM 3.7 mmol/L (3.5-5.1); SODIUM 142 mmol/L (135-144); TOTAL PROTEIN 4.7 g/dl (6.1-8.1)
[2019-02-03] MEDS: VANCOMYCIN 500 MG (PMX) 100 ML IVPB (06:05)
[2019-02-03] MEDS: LANSOPRAZOLE 30 MG CAP NGT (06:05)
[2019-02-03] MEDS: MIDAZOLAM (DRIP) 50 mg/50 mL 50 ML IV ×3 (07:21→18:17)
[2019-02-03] MEDS: ATENOLOL 25 MG TAB NGT ×2 (08:02→20:45)
[2019-02-03] MEDS: FERROUS SULFATE 60 MG/ML 5ML CUP NGT (08:02)
[2019-02-03] MEDS: predniSONE 10 MG TAB PO (08:02)
[2019-02-03] MEDS: MEROPENEM 500MG/50 ML (PMX) 50 ML IVPB ×2 (08:02→20:45)
[2019-02-03] MEDS: IPRATROPIUM (HFA) 12.9 GM INHALER INH ×3 (08:36→19:22)
[2019-02-03] MEDS: FUROSEMIDE 20 MG INJ IV (11:10)
[2019-02-03] MEDS: SCOPOLAMINE 1.5 MG PATCH TRANSDERM (11:11)
[2019-02-03] MEDS: ACETYLCYSTEINE 20% 4 ML VIAL NEB ×2 (13:43→19:22)
[2019-02-03] MEDS: BISACODYL 10 MG SUPP PR (20:45)
[2019-02-04] MEDS: INSULIN ASPART [NOVOLOG] 3 ML PEN SC ×6 (00:33→21:02)
[2019-02-04] MEDS: ACETYLCYSTEINE 20% 4 ML VIAL NEB ×4 (02:00→20:00)
[2019-02-04] MEDS: ALBUTEROL HFA 8 GM INHALER INH ×4 (02:00→19:24)
[2019-02-04] MEDS: MIDAZOLAM (DRIP) 50 mg/50 mL 50 ML IV ×3 (02:30→21:20)
[2019-02-04] MEDS: FENTAnyl (DRIP) 1000 mcg/100mL 100 ML IV ×2 (04:33→16:22)
[2019-02-04 04:58] LABS: ADD MAN DIFF? NO
[2019-02-04 05:09] LABS: WHITE BLOOD COUNT 17.5 10^3/ul (4.8-10.8)
[2019-02-04 05:09] LABS: BASOPHILS % 0.2 % (0.0-2.0); EOSINOPHILS % 0.2 % (0.0-7.0); HEMATOCRIT 27.5 % (42.0-52.0); HEMOGLOBIN 8.9 g/dl (14.0-18.0); LYMPHOCYTES # 0.9 10^3/ul (0.8-2.9); LYMPHOCYTES % 5.2 % (15.0-51.0); MEAN CORPUSCULAR HEMOGLOBIN 27.8 pg (29.0-33.0); MEAN CORPUSCULAR HGB CONC 32.4 g/dl (32.0-37.0); MEAN CORPUSCULAR VOLUME 85.9 fl (82.0-101.0); MONOCYTE # 1.4 10^3/ul (0.3-0.9); NEUTROPHIL # 14.8 10^3/ul (1.6-7.5); PLATELET COUNT 357 10^3/UL (140-415); RED CELL DISTRIBUTION WIDTH 17.4 % (11.5-14.5)
[2019-02-04 05:26] LABS: CARBON DIOXIDE 25 mmol/L (21-31); CREATININE 1.51 mg/dl (0.61-1.24); GLUCOSE 137 mg/dl (70-220); SODIUM 145 mmol/L (135-144)
[2019-02-04 05:30] LABS: PHOSPHORUS 4.5 mg/dl (2.5-4.9)
[2019-02-04 05:30] LABS: MAGNESIUM 2.4 mg/dl (1.7-2.5)
[2019-02-04] MEDS: LANSOPRAZOLE 30 MG CAP NGT (05:58)
[2019-02-04 06:18] LABS: ANION GAP 6 (5-13); BLOOD UREA NITROGEN 105 mg/dl (7-20); CALCIUM 8.4 mg/dl (8.4-10.2); CHLORIDE 114 mmol/L (97-110)
[2019-02-04] MEDS: IPRATROPIUM (HFA) 12.9 GM INHALER INH ×3 (07:54→19:24)
[2019-02-04] MEDS: FERROUS SULFATE 60 MG/ML 5ML CUP NGT (08:28)
[2019-02-04] MEDS: MEROPENEM 500MG/50 ML (PMX) 50 ML IVPB (08:28)
[2019-02-04] MEDS: ATENOLOL 25 MG TAB NGT ×2 (08:29→21:10)
[2019-02-04] MEDS: predniSONE 20 MG TAB PO (08:29)
[2019-02-04] MEDS: APIXABAN 5 MG TABLET PO ×2 (12:31→21:05)
[2019-02-04] MEDS: BISACODYL 10 MG SUPP PR (20:57)
[2019-02-04] MEDS ORDERED: APIXABAN 5 MG TABLET PO (21:00)
[2019-02-05] MEDS: INSULIN ASPART [NOVOLOG] 3 ML PEN SC ×6 (00:55→21:28)
[2019-02-05] MEDS: FENTAnyl (DRIP) 1000 mcg/100mL 100 ML IV ×3 (01:00→21:28)
[2019-02-05] MEDS: ACETYLCYSTEINE 20% 4 ML VIAL NEB ×4 (01:32→20:45)
[2019-02-05] MEDS: ALBUTEROL HFA 8 GM INHALER INH ×4 (01:32→20:44)
[2019-02-05] MEDS: MIDAZOLAM (DRIP) 50 mg/50 mL 50 ML IV ×3 (04:14→22:15)
[2019-02-05 05:15] LABS: ADD MAN DIFF? NO
[2019-02-05 05:20] LABS: BASOPHILS % 0.2 % (0.0-2.0); EOSINOPHILS # 0.1 10^3/ul (0.0-0.5); EOSINOPHILS % 0.5 % (0.0-7.0); HEMOGLOBIN 7.5 g/dl (14.0-18.0); LYMPHOCYTES # 1.1 10^3/ul (0.8-2.9); LYMPHOCYTES % 8.6 % (15.0-51.0); MEAN CORPUSCULAR HEMOGLOBIN 27.8 pg (29.0-33.0); MEAN CORPUSCULAR HGB CONC 32.6 g/dl (32.0-37.0); MEAN CORPUSCULAR VOLUME 85.2 fl (82.0-101.0); MEAN PLATELET VOLUME 11.4 fl (7.4-10.4); MONOCYTE # 1.4 10^3/ul (0.3-0.9); MONOCYTES % 10.2 % (0.0-11.0); NEUTROPHIL # 10.6 10^3/ul (1.6-7.5); NEUTROPHILS % 79.3 % (39.0-77.0); PLATELET COUNT 322 10^3/UL (140-415); RED CELL DISTRIBUTION WIDTH 17.4 % (11.5-14.5)
[2019-02-05 05:20] LABS: WHITE BLOOD COUNT 13.3 10^3/ul (4.8-10.8)
[2019-02-05] MEDS: LANSOPRAZOLE 30 MG CAP NGT (05:20)
[2019-02-05 05:48] LABS: ANION GAP 6 (5-13); BLOOD UREA NITROGEN 100 mg/dl (7-20); CALCIUM 8.1 mg/dl (8.4-10.2); CARBON DIOXIDE 25 mmol/L (21-31); CHLORIDE 116 mmol/L (97-110); CREATININE 1.41 mg/dl (0.61-1.24); GLUCOSE 133 mg/dl (70-220); POTASSIUM 3.4 mmol/L (3.5-5.1); SODIUM 147 mmol/L (135-144)
[2019-02-05] MEDS: predniSONE 20 MG TAB PO (08:13)
[2019-02-05] MEDS: FERROUS SULFATE 60 MG/ML 5ML CUP NGT (08:13)
[2019-02-05] MEDS: APIXABAN 5 MG TABLET PO ×2 (08:13→21:21)
[2019-02-05] MEDS: ATENOLOL 25 MG TAB NGT ×2 (08:14→21:21)
[2019-02-05] MEDS: IPRATROPIUM (HFA) 12.9 GM INHALER INH ×3 (09:49→20:44)
[2019-02-05] MEDS: POTASSIUM CHLORIDE 100 ML IVPB (14:12)
[2019-02-05 14:58] LABS: MAGNESIUM 2.3 mg/dl (1.7-2.5)
[2019-02-05] MEDS: BISACODYL 10 MG SUPP PR (21:21)
[2019-02-06] MEDS: INSULIN ASPART [NOVOLOG] 3 ML PEN SC ×6 (01:00→20:49)
[2019-02-06] MEDS: ALBUTEROL HFA 8 GM INHALER INH ×4 (02:01→20:00)
[2019-02-06] MEDS: ACETYLCYSTEINE 20% 4 ML VIAL NEB ×5 (02:02→20:00)
[2019-02-06] MEDS: IPRATROPIUM (HFA) 12.9 GM INHALER INH ×4 (02:04→20:00)
[2019-02-06 04:40] LABS: ADD MAN DIFF? NO
[2019-02-06 04:45] LABS: WHITE BLOOD COUNT 12.6 10^3/ul (4.8-10.8)
[2019-02-06 04:45] LABS: BASOPHILS % 0.1 % (0.0-2.0); EOSINOPHILS # 0.1 10^3/ul (0.0-0.5); EOSINOPHILS % 0.4 % (0.0-7.0); HEMOGLOBIN 7.8 g/dl (14.0-18.0); LYMPHOCYTES # 1.1 10^3/ul (0.8-2.9); LYMPHOCYTES % 8.9 % (15.0-51.0); MEAN CORPUSCULAR HEMOGLOBIN 28.5 pg (29.0-33.0); MEAN CORPUSCULAR HGB CONC 32.5 g/dl (32.0-37.0); MEAN CORPUSCULAR VOLUME 87.6 fl (82.0-101.0); MEAN PLATELET VOLUME 11.1 fl (7.4-10.4); MONOCYTE # 1.3 10^3/ul (0.3-0.9); MONOCYTES % 10.7 % (0.0-11.0); NEUTROPHILS % 79.2 % (39.0-77.0); PLATELET COUNT 356 10^3/UL (140-415); RED BLOOD COUNT 2.74 10^6/ul (4.70-6.10); RED CELL DISTRIBUTION WIDTH 17.9 % (11.5-14.5)
[2019-02-06] MEDS: LANSOPRAZOLE 30 MG CAP NGT (05:06)
[2019-02-06 05:16] LABS: ANION GAP 5 (5-13); BLOOD UREA NITROGEN 96 mg/dl (7-20); CALCIUM 8.3 mg/dl (8.4-10.2); CARBON DIOXIDE 24 mmol/L (21-31); CHLORIDE 119 mmol/L (97-110); CREATININE 1.38 mg/dl (0.61-1.24); GLUCOSE 131 mg/dl (70-220); MAGNESIUM 2.3 mg/dl (1.7-2.5); PHOSPHORUS 3.8 mg/dl (2.5-4.9); SODIUM 148 mmol/L (135-144)
[2019-02-06] MEDS: MIDAZOLAM (DRIP) 50 mg/50 mL 50 ML IV ×2 (07:35→16:53)
[2019-02-06] MEDS: FENTAnyl (DRIP) 1000 mcg/100mL 100 ML IV ×2 (07:39→16:57)
[2019-02-06] MEDS: FERROUS SULFATE 60 MG/ML 5ML CUP NGT (08:22)
[2019-02-06] MEDS: predniSONE 20 MG TAB PO (08:22)
[2019-02-06] MEDS: APIXABAN 5 MG TABLET PO ×2 (08:23→22:11)
[2019-02-06] MEDS: ATENOLOL 25 MG TAB NGT ×2 (08:23→21:00)
[2019-02-06] MEDS: FUROSEMIDE 40 MG INJ IV (08:35)
[2019-02-06] MEDS: SCOPOLAMINE 1.5 MG PATCH TRANSDERM (10:11)
[2019-02-06 13:55] LABS: DIGOXIN 0.8 ng/ml (1.0-2.0)
[2019-02-06] MEDS: SOD CHLORIDE 0.9% 500 ML IV (16:59)
[2019-02-06] MEDS: BISACODYL 10 MG SUPP PR (20:36)
[2019-02-06] MEDS: PROPOFOL 100 ML IV (22:24)
[2019-02-06] MEDS: PHENYLephrine 20MG IN 250 ML 250 ML IV (22:53)
[2019-02-07] MEDS: MIDAZOLAM (DRIP) 50 mg/50 mL 50 ML IV ×4 (00:38→19:40)
[2019-02-07] MEDS: INSULIN ASPART [NOVOLOG] 3 ML PEN SC ×6 (01:15→21:00)
[2019-02-07] MEDS: ACETYLCYSTEINE 20% 4 ML VIAL NEB ×4 (01:47→19:33)
[2019-02-07] MEDS: IPRATROPIUM (HFA) 12.9 GM INHALER INH ×4 (01:47→19:34)
[2019-02-07] MEDS: ALBUTEROL HFA 8 GM INHALER INH ×4 (01:47→19:34)
[2019-02-07] MEDS: FENTAnyl (DRIP) 1000 mcg/100mL 100 ML IV (03:57)
[2019-02-07] MEDS: LANSOPRAZOLE 30 MG CAP NGT (05:14)
[2019-02-07] MEDS: ATENOLOL 25 MG TAB NGT (09:00)
[2019-02-07] MEDS: APIXABAN 5 MG TABLET PO ×2 (09:39→21:09)
[2019-02-07] MEDS: predniSONE 20 MG TAB PO (09:39)
[2019-02-07] MEDS: FERROUS SULFATE 60 MG/ML 5ML CUP NGT (09:39)
[2019-02-07] MEDS: PROPOFOL 100 ML IV ×2 (10:30→14:58)
[2019-02-07 11:47] LABS: ADD MAN DIFF? NO
[2019-02-07 11:51] LABS: BASOPHILS % 0.2 % (0.0-2.0); EOSINOPHILS # 0.1 10^3/ul (0.0-0.5); EOSINOPHILS % 0.8 % (0.0-7.0); HEMOGLOBIN 7.4 g/dl (14.0-18.0); LYMPHOCYTES # 1.2 10^3/ul (0.8-2.9); LYMPHOCYTES % 10.8 % (15.0-51.0); MEAN CORPUSCULAR HEMOGLOBIN 28.4 pg (29.0-33.0); MEAN CORPUSCULAR HGB CONC 32.2 g/dl (32.0-37.0); MEAN CORPUSCULAR VOLUME 88.1 fl (82.0-101.0); MEAN PLATELET VOLUME 10.4 fl (7.4-10.4); MONOCYTES % 8.8 % (0.0-11.0); NEUTROPHILS % 78.7 % (39.0-77.0); PLATELET COUNT 320 10^3/UL (140-415); RED BLOOD COUNT 2.61 10^6/ul (4.70-6.10); RED CELL DISTRIBUTION WIDTH 18.3 % (11.5-14.5)
[2019-02-07 11:51] LABS: WHITE BLOOD COUNT 11.4 10^3/ul (4.8-10.8)
[2019-02-07 12:17] LABS: ALANINE AMINOTRANSFERASE 20 IU/L (13-69); ALKALINE PHOSPHATASE 65 IU/L (42-121); ANION GAP 7 (5-13); ASPARTATE AMINO TRANSFERASE 20 IU/L (15-46); BILIRUBIN,TOTAL 0.3 mg/dl (0.2-1.3); BLOOD UREA NITROGEN 93 mg/dl (7-20); CALCIUM 8.3 mg/dl (8.4-10.2); CARBON DIOXIDE 24 mmol/L (21-31); CHLORIDE 116 mmol/L (97-110); GLUCOSE 132 mg/dl (70-220); MAGNESIUM 2.2 mg/dl (1.7-2.5); POTASSIUM 3.5 mmol/L (3.5-5.1); SODIUM 147 mmol/L (135-144)
[2019-02-07 12:18] LABS: ALBUMIN 2.1 g/dl (3.3-4.9); ALBUMIN/GLOBULIN RATIO 0.75; BILIRUBIN,INDIRECT 0.3 mg/dl (0-1.1); TOTAL PROTEIN 4.9 g/dl (6.1-8.1)
[2019-02-07] MEDS: FUROSEMIDE 40 MG INJ IV (13:20)
[2019-02-07] MEDS: POTASSIUM CHLORIDE 100 ML IVPB (13:43)
[2019-02-07] MEDS: BISACODYL 10 MG SUPP PR (21:09)
[2019-02-08] MEDS: INSULIN ASPART [NOVOLOG] 3 ML PEN SC ×6 (00:58→21:00)
[2019-02-08] MEDS: ACETYLCYSTEINE 20% 4 ML VIAL NEB ×4 (01:19→19:45)
[2019-02-08] MEDS: ALBUTEROL HFA 8 GM INHALER INH ×4 (01:20→19:45)
[2019-02-08] MEDS: FENTAnyl (DRIP) 1000 mcg/100mL 100 ML IV ×2 (01:55→15:45)
[2019-02-08] MEDS: PROPOFOL 100 ML IV ×2 (04:14→16:42)
[2019-02-08] MEDS: LANSOPRAZOLE 30 MG CAP NGT (05:04)
[2019-02-08 05:07] LABS: ADD MAN DIFF? NO
[2019-02-08 05:20] LABS: WHITE BLOOD COUNT 10.4 10^3/ul (4.8-10.8)
[2019-02-08 05:20] LABS: BASOPHILS % 0.1 % (0.0-2.0); EOSINOPHILS # 0.1 10^3/ul (0.0-0.5); EOSINOPHILS % 0.5 % (0.0-7.0); HEMATOCRIT 23.3 % (42.0-52.0); HEMOGLOBIN 7.5 g/dl (14.0-18.0); LYMPHOCYTES # 1.1 10^3/ul (0.8-2.9); LYMPHOCYTES % 10.9 % (15.0-51.0); MEAN CORPUSCULAR HEMOGLOBIN 28.7 pg (29.0-33.0); MEAN CORPUSCULAR HGB CONC 32.2 g/dl (32.0-37.0); MEAN CORPUSCULAR VOLUME 89.3 fl (82.0-101.0); MEAN PLATELET VOLUME 11.1 fl (7.4-10.4); MONOCYTE # 0.8 10^3/ul (0.3-0.9); MONOCYTES % 7.9 % (0.0-11.0); NEUTROPHIL # 8.3 10^3/ul (1.6-7.5); PLATELET COUNT 322 10^3/UL (140-415); RED BLOOD COUNT 2.61 10^6/ul (4.70-6.10); RED CELL DISTRIBUTION WIDTH 18.2 % (11.5-14.5)
[2019-02-08 05:43] LABS: ALANINE AMINOTRANSFERASE 23 IU/L (13-69); ALBUMIN 2.1 g/dl (3.3-4.9); ALBUMIN/GLOBULIN RATIO 0.84; ALKALINE PHOSPHATASE 67 IU/L (42-121); ANION GAP 7 (5-13); ASPARTATE AMINO TRANSFERASE 17 IU/L (15-46); BILIRUBIN,INDIRECT 0.2 mg/dl (0-1.1); BILIRUBIN,TOTAL 0.2 mg/dl (0.2-1.3); BLOOD UREA NITROGEN 92 mg/dl (7-20); CALCIUM 8.2 mg/dl (8.4-10.2); CARBON DIOXIDE 23 mmol/L (21-31); CHLORIDE 111 mmol/L (97-110); CREATININE 1.33 mg/dl (0.61-1.24); GLUCOSE 111 mg/dl (70-220); SODIUM 141 mmol/L (135-144); TOTAL PROTEIN 4.6 g/dl (6.1-8.1)
[2019-02-08] MEDS: FERROUS SULFATE 60 MG/ML 5ML CUP NGT (08:40)
[2019-02-08] MEDS: predniSONE 20 MG TAB PO (08:40)
[2019-02-08] MEDS: APIXABAN 5 MG TABLET PO ×2 (08:40→22:04)
[2019-02-08] MEDS: FUROSEMIDE 40 MG INJ IV (08:40)
[2019-02-08] MEDS: IPRATROPIUM (HFA) 12.9 GM INHALER INH ×3 (08:52→19:45)
[2019-02-08] MEDS: MIDAZOLAM (DRIP) 50 mg/50 mL 50 ML IV ×2 (13:48→23:37)
[2019-02-08] MEDS: BISACODYL 10 MG SUPP PR (22:04)
[2019-02-09] MEDS: INSULIN ASPART [NOVOLOG] 3 ML PEN SC ×6 (01:00→21:37)
[2019-02-09] MEDS: ACETYLCYSTEINE 20% 4 ML VIAL NEB ×4 (01:13→21:31)
[2019-02-09] MEDS: ALBUTEROL HFA 8 GM INHALER INH ×4 (01:14→21:31)
[2019-02-09] MEDS: LANSOPRAZOLE 30 MG CAP NGT (05:35)
[2019-02-09] MEDS: FENTAnyl (DRIP) 1000 mcg/100mL 100 ML IV ×2 (06:08→17:26)
[2019-02-09] MEDS: IPRATROPIUM (HFA) 12.9 GM INHALER INH ×3 (07:41→21:31)
[2019-02-09] MEDS: PROPOFOL 100 ML IV ×2 (08:10→18:34)
[2019-02-09] MEDS: FUROSEMIDE 40 MG INJ IV ×3 (09:00→15:16)
[2019-02-09] MEDS: predniSONE 20 MG TAB PO (09:20)
[2019-02-09] MEDS: APIXABAN 5 MG TABLET PO ×2 (09:20→21:34)
[2019-02-09] MEDS: FERROUS SULFATE 60 MG/ML 5ML CUP NGT (09:20)
[2019-02-09] MEDS: MIDAZOLAM (DRIP) 50 mg/50 mL 50 ML IV (09:52)
[2019-02-09] MEDS: SCOPOLAMINE 1.5 MG PATCH TRANSDERM (12:51)
[2019-02-09] MEDS: BISACODYL 10 MG SUPP PR (21:34)
[2019-02-10] MEDS: INSULIN ASPART [NOVOLOG] 3 ML PEN SC ×6 (01:00→20:42)
[2019-02-10] MEDS: ACETYLCYSTEINE 20% 4 ML VIAL NEB ×4 (01:33→19:50)
[2019-02-10] MEDS: ALBUTEROL HFA 8 GM INHALER INH ×4 (02:00→19:50)
[2019-02-10] MEDS: MIDAZOLAM (DRIP) 50 mg/50 mL 50 ML IV ×2 (02:30→16:54)
[2019-02-10] MEDS: FENTAnyl (DRIP) 1000 mcg/100mL 100 ML IV ×2 (03:34→16:52)
[2019-02-10] MEDS: LANSOPRAZOLE 30 MG CAP NGT (05:57)
[2019-02-10] MEDS: IPRATROPIUM (HFA) 12.9 GM INHALER INH ×3 (07:36→19:50)
[2019-02-10] MEDS: FERROUS SULFATE 60 MG/ML 5ML CUP NGT (08:19)
[2019-02-10] MEDS: APIXABAN 5 MG TABLET PO ×2 (08:19→20:30)
[2019-02-10] MEDS: FUROSEMIDE 40 MG INJ IV (08:19)
[2019-02-10] MEDS: predniSONE 20 MG TAB PO (08:38)
[2019-02-10] MEDS: PROPOFOL 100 ML IV ×2 (10:30→18:00)
[2019-02-10] MEDS: DILTIAZEM 30 MG TAB NGT ×2 (11:55→22:31)
[2019-02-10 12:33] LABS: ANION GAP 8 (5-13); BLOOD UREA NITROGEN 87 mg/dl (7-20); CALCIUM 8.4 mg/dl (8.4-10.2); CARBON DIOXIDE 24 mmol/L (21-31); CHLORIDE 109 mmol/L (97-110); CREATININE 1.38 mg/dl (0.61-1.24); GLUCOSE 138 mg/dl (70-220); POTASSIUM 3.8 mmol/L (3.5-5.1); SODIUM 141 mmol/L (135-144)
[2019-02-10 16:28] LABS: AADO2 Arterial 97.6 mmHg (7.0-24.0); Allen Test ACCEPTAB; Arterial Base Excess -5.1 mmol/L (-3.0-3); Arterial COHb 0.4 % (0.0-3.0); Arterial Fraction of Oxyhgb 78.5 % (93.0-99.0); Arterial HCO3 22.5 mmol/L (22.0-26.0); Arterial MetHb 0.2 % (0.0-1.5); Arterial pCO2 53.5 mmhg (35-45); Blood Gas PS 10; MODE VENT - CPAP; Site Left Radial
[2019-02-10] MEDS ORDERED: ALBUMIN HUMAN 25% 100 ML (18:33)
[2019-02-10] MEDS: SOD CHLORIDE 0.9% 500 ML IV (19:06)
[2019-02-10] MEDS: ALBUMIN HUMAN 25% 100 ML IV (19:07)
[2019-02-10] MEDS: BISACODYL 10 MG SUPP PR (20:31)
[2019-02-11] MEDS: INSULIN ASPART [NOVOLOG] 3 ML PEN SC ×5 (01:15→18:00)
[2019-02-11] MEDS: ACETYLCYSTEINE 20% 4 ML VIAL NEB ×3 (01:21→14:00)
[2019-02-11] MEDS: ALBUTEROL HFA 8 GM INHALER INH ×3 (01:22→14:00)
[2019-02-11] MEDS: FENTAnyl (DRIP) 1000 mcg/100mL 100 ML IV (02:48)
[2019-02-11] MEDS: LANSOPRAZOLE 30 MG CAP NGT (05:58)
[2019-02-11] MEDS: DILTIAZEM 30 MG TAB NGT ×2 (06:01→14:00)
[2019-02-11] MEDS: IPRATROPIUM (HFA) 12.9 GM INHALER INH ×2 (07:44→14:00)
[2019-02-11] MEDS: FUROSEMIDE 40 MG INJ IV (08:23)
[2019-02-11] MEDS: FERROUS SULFATE 60 MG/ML 5ML CUP NGT (08:23)
[2019-02-11] MEDS: APIXABAN 5 MG TABLET PO (08:23)
[2019-02-11] MEDS: predniSONE 20 MG TAB PO (08:23)
[2019-02-11 08:46] LABS: AADO2 Arterial 46.1 mmHg (7.0-24.0); Allen Test ACCEPTAB; Arterial Base Excess -2.3 mmol/L (-3.0-3); Arterial Blood Gas Oxygen Sat 98.3 mmHG (95.0-100.0); Arterial COHb 0 % (0.0-3.0); Arterial HCO3 21.1 mmol/L (22.0-26.0); Arterial MetHb 0.3 % (0.0-1.5); Arterial pCO2 30.6 mmhg (35-45); MODE VENT - AC; Site Right Radial
[2019-02-11] MEDS: PROPOFOL 100 ML IV (10:30)
[2019-02-11 10:31] LABS: ADD MAN DIFF? NO
[2019-02-11 10:33] LABS: WHITE BLOOD COUNT 12.2 10^3/ul (4.8-10.8)
[2019-02-11 10:33] LABS: BASOPHILS % 0.1 % (0.0-2.0); EOSINOPHILS # 0.1 10^3/ul (0.0-0.5); EOSINOPHILS % 0.4 % (0.0-7.0); HEMATOCRIT 23.9 % (42.0-52.0); HEMOGLOBIN 7.6 g/dl (14.0-18.0); LYMPHOCYTES # 1.6 10^3/ul (0.8-2.9); MEAN CORPUSCULAR HEMOGLOBIN 28.1 pg (29.0-33.0); MEAN CORPUSCULAR HGB CONC 31.8 g/dl (32.0-37.0); MEAN CORPUSCULAR VOLUME 88.5 fl (82.0-101.0); MEAN PLATELET VOLUME 10.5 fl (7.4-10.4); MONOCYTES % 7.8 % (0.0-11.0); NEUTROPHIL # 9.6 10^3/ul (1.6-7.5); NEUTROPHILS % 78.4 % (39.0-77.0); PLATELET COUNT 279 10^3/UL (140-415); RED CELL DISTRIBUTION WIDTH 18.6 % (11.5-14.5)
[2019-02-11 10:56] LABS: ANION GAP 8 (5-13); BLOOD UREA NITROGEN 92 mg/dl (7-20); CALCIUM 8.5 mg/dl (8.4-10.2); CARBON DIOXIDE 24 mmol/L (21-31); CHLORIDE 110 mmol/L (97-110); CREATININE 1.45 mg/dl (0.61-1.24); GLUCOSE 131 mg/dl (70-220); POTASSIUM 3.4 mmol/L (3.5-5.1); SODIUM 142 mmol/L (135-144)
[2019-02-11 11:39] LABS: AADO2 Arterial 88.8 mmHg (7.0-24.0); Allen Test ACCEPTAB; Arterial Base Excess -3.1 mmol/L (-3.0-3); Arterial Blood Gas Oxygen Sat 92.9 mmHG (95.0-100.0); Arterial COHb 0.3 % (0.0-3.0); Arterial Fraction of Oxyhgb 92.3 % (93.0-99.0); Arterial HCO3 22.5 mmol/L (22.0-26.0); Arterial MetHb 0.3 % (0.0-1.5); Arterial pCO2 42.4 mmhg (35-45); Blood Gas PS 10; MODE VENT - CPAP; Site Right Radial
[2019-02-11] MEDS: CEFEPIME 1GM/50 ML (PMX) 50 ML IVPB (11:54)
[2019-02-11] MEDS: POTASSIUM CHLORIDE 100 ML IVPB ×2 (12:43→14:23)
[2019-02-11] MEDS: METOPROLOL 5 MG INJ IV (14:00)
[2019-02-11] MEDS: morphine 2 MG INJ IV ×3 (14:15→15:07)
[2019-02-11] MEDS: DILTIAZEM 25 MG INJ IV ×2 (14:48→15:09)
[2019-02-11] MEDS ORDERED: METOPROLOL 5 MG INJ IV (15:00)
[2019-02-11] MEDS: morphine (DRIP) 100 MG/100 ML 100 ML IV (19:05)
[2019-02-12] MEDS: morphine (DRIP) 100 MG/100 ML 100 ML IV ×2 (07:27→21:45)
[2019-02-12] MEDS: SCOPOLAMINE 1.5 MG PATCH TRANSDERM (11:28)
[2019-02-12] MEDS ORDERED: ARTIFICIAL TEARS 15 ML OPH BOTH EYES (18:00)
[2019-02-12] MEDS ORDERED: ONDANSETRON 4 MG INJ IV (18:00)
[2019-02-12] MEDS ORDERED: DIMETHICONE STICK TOP (18:00)
== END 2019-02-13 01:53 | disposition expired | DRG 870 ==
LOC: ICU 01-23 12:37 → 2NE 02-11 22:25 → E/R 15:58 → TEL 18:56
PROC: 5A1955Z Respiratory Ventilation, Greater than 96 Consecutive Hours (ICD-10-PCS; 2019-01-23)
PROC: 06HY33Z Insertion of Infusion Device into Lower Vein, Percutaneous Approach (ICD-10-PCS; 2019-01-23)
PROC: 0BH17EZ Insertion of Endotracheal Airway into Trachea, Via Natural or Artificial Opening (ICD-10-PCS; 2019-01-23)
PROC: 02HV33Z Insertion of Infusion Device into Superior Vena Cava, Percutaneous Approach (ICD-10-PCS; principal; 2019-01-29)
DX: A41.9 Sepsis, unspecified organism (principal); R65.21 Severe sepsis with septic shock; J18.1 Lobar pneumonia, unspecified organism; I50.33 Acute on chronic diastolic (congestive) heart failure; J96.01 Acute respiratory failure with hypoxia; J96.02 Acute respiratory failure with hypercapnia; E87.2 Acidosis; I13.0 Hypertensive heart and chronic kidney disease with heart failure and stage 1 through stage 4 chronic kidney disease, or unspecified chronic kidney disease; J44.1 Chronic obstructive pulmonary disease with (acute) exacerbation; N17.9 Acute kidney failure, unspecified; E87.0 Hyperosmolality and hypernatremia; E87.1 Hypo-osmolality and hyponatremia; I48.91 Unspecified atrial fibrillation; D64.9 Anemia, unspecified; E78.5 Hyperlipidemia, unspecified; N18.9 Chronic kidney disease, unspecified; F17.200 Nicotine dependence, unspecified, uncomplicated; Z85.118 Personal history of other malignant neoplasm of bronchus and lung
CPT/HCPCS: 31500; 36415; 36569; 36600; 71045; 71250; 76604; 76937; 80048; 80053; 80162; 80202; 81001; 82550; 82803; 82962; 83605; 83735; 83880; 84100; 84443; 84484; 85025; 85610; 85730; 87040-91; 87070; 87081; 89220; 93005; 94002; 94003; 94640; 94660; 94664; 94668; 94770; 96374; 96375; 96376; 99285-25